=== PATIENT | female | born 1950 | race Caucasian/White ===

== ENCOUNTER 2020-10-16 13:34 | Outpatient (REF) | payer SELFPAY | END 2020-10-16 13:35 | disposition home or self-care (01) | LOC: HO.HAP 13:34 | PROVIDERS: PCP Hospitalist; Referring Provider Hospitalist; Visit Provider Hospitalist | DX: Z46.1 Encounter for fitting and adjustment of hearing aid (principal) | CPT/HCPCS: V5266 ==

== ENCOUNTER 2020-11-09 11:32 | Outpatient (REF) | payer SELFPAY | END 2020-11-09 11:33 | disposition home or self-care (01) | LOC: HO.HAP 11:32 | PROVIDERS: Visit Provider Hospitalist | DX: Z46.1 Encounter for fitting and adjustment of hearing aid (principal); H90.3 Sensorineural hearing loss, bilateral; H93.13 Tinnitus, bilateral | CPT/HCPCS: 99499 ==

== ENCOUNTER 2021-03-15 13:17 | Outpatient (REF) | payer SELFPAY | END 2021-03-15 13:18 | disposition home or self-care (01) | LOC: HO.HAP 13:17 | PROVIDERS: Visit Provider Family Medicine | DX: Z46.1 Encounter for fitting and adjustment of hearing aid (principal); H90.3 Sensorineural hearing loss, bilateral | CPT/HCPCS: V5266; V5267 ==

== ENCOUNTER 2021-04-16 10:36 | Outpatient (REF) | payer SELFPAY | END 2021-04-16 10:37 | disposition home or self-care (01) | LOC: HO.HAP 10:36 | PROVIDERS: Visit Provider Family Medicine | DX: Z46.1 Encounter for fitting and adjustment of hearing aid (principal) | CPT/HCPCS: V5266 ==

== ENCOUNTER 2021-04-25 10:27 | Outpatient (REF) | payer MEDICARE, SELFPAY ==
--- NOTE | 2021-04-30 12:39 | MHC.AU.AHA ---
Adult Audiological Evaluation Date of Visit: 04/25/21 Paid Search Marketing Strategist Used: Not Applicable Reason for Appointment: Audiologic re-evaluation due to increased hearing difficulties for the left ear. Sharla has a long-standing asymmetric hearing loss with no functional hearing ability in the right ear. She feels the left ear hearing has decreased and she is experiencing more difficulty understanding speech despite wearing her CROS hearing aid system Previous Hearing Test Results: 08/29/2019 [facility] Left ear - Moderate to severe mixed hearing loss with 92% speech understanding at 80 dB HL Right ear - Profound sensorineural hearing loss with no speech discrimination ability Ear History: History of Ear Wax Buildup: Both Ears Bothersome Tinnitus/Ringing/Noises in Ears: Both Ears Medical History: Medical History: High Blood Pressure, Catatacts and Glaucoma Medication List: Metoprolol, Aspirin, Klonidine, Citalopram, Lisinopril/HCTZ Hearing Instrument History- Right Ear: Milk Drying Machine Operator: Phonak Model: CROS B-312 Serial Number: [id number] Battery Size: 312 Repair Warranty: 12/28/2017 Dispensed By: [facility] Date of Fittin10/08/2016 Hearing Instrument History- Left Ear: Milk Drying Machine Operator: Phonak Model: Audeo B 90-312T Serial Number: [id number] Battery Size: 312 Warranty: 12/28/2019 Dispensed By: [facility] Date of Fittin10/08/2016 Otoscopy: Right Ear: Unremarkable Left Ear: Unremarkable Tympanometry: Tympanometry performed due to: Patient reports sensation that ears are blocked/plugged. Right Ear: Normal Middle Ear System (Type A) Left Ear: Normal Middle Ear System (Type A) Hearing Evaluation: Transducer(s) Used: Insert Earphones Bone Conduction Method: Conventional Audiometry Stimuli Used: Pure Tones Right Ear: Description of Hearing: Did Not Test today due to long-standing history of profound hearing loss Left Ear: Description of Hearing: Moderate to severe mixed hearing loss Speech Recognition Threshold (SRT): Method Used: Monitored Live Voice Stimuli Used: Spondee Words Right Ear: Did Not Test Left Ear: 55 dB HL Word Discrimination: Method: Recorded Lists Word Lists Used: NU-6 Right Ear: Did Not Test Left Ear: 100% at 85 dB HL Comparison: Thresholds for the left ear have decreased 5-15 dB at 250-1000 Hz compared to 08/29/2019 Recommendations: Hearing aid maintenance performed and hearing aid(s) reprogrammed with updated test results. Audiological re-evaluation in one year. Will send a reminder card. Diagnosis: Primary Diagnosis: H90.3 Bilateral Sensorineural Hearing Loss Signature: Provider: Aliya Balbuena, KATHIA-A
== END 2021-04-25 10:28 | disposition home or self-care (01) ==
LOC: HO.SH 10:27
PROVIDERS: Visit Provider Family Medicine
DX: H90.3 Sensorineural hearing loss, bilateral (principal)
CPT/HCPCS: 92557; 92567

== ENCOUNTER 2021-05-28 10:50 | Outpatient (REF) | payer SELFPAY | END 2021-05-28 10:51 | disposition home or self-care (01) | LOC: HO.HAP 10:50 | PROVIDERS: Visit Provider Hospitalist | DX: Z46.1 Encounter for fitting and adjustment of hearing aid (principal); H90.3 Sensorineural hearing loss, bilateral | CPT/HCPCS: V5266 ==

== ENCOUNTER 2021-08-06 11:01 | Outpatient (REF) | payer SELFPAY | END 2021-08-06 11:02 | disposition home or self-care (01) | LOC: HO.HAP 11:01 | PROVIDERS: Visit Provider Hospitalist | DX: Z46.1 Encounter for fitting and adjustment of hearing aid (principal); H90.3 Sensorineural hearing loss, bilateral | CPT/HCPCS: V5266 ==

== ENCOUNTER 2021-09-23 12:45 | Outpatient (REF) | payer SELFPAY | END 2021-09-23 12:46 | disposition home or self-care (01) | LOC: HO.HAP 12:45 | PROVIDERS: Visit Provider Hospitalist | DX: Z46.1 Encounter for fitting and adjustment of hearing aid (principal); H90.3 Sensorineural hearing loss, bilateral | CPT/HCPCS: V5266 ==

== ENCOUNTER 2021-09-25 09:31 | Outpatient (REF) | payer MEDICARE, SELFPAY ==
[2021-09-25 12:12] LABS: MANUAL DIFF FLAG NO
[2021-09-25 12:14] LABS: Basophils Percent Auto 0.8 % (0-2); Eosinophils Absolute Auto 0.1 X10*3/uL (0.0-0.4); Hematocrit 39.9 % (37.0-47.0); Hemoglobin 13.4 g/dl (12.0-16.0); Imm Gran Abs Auto 0.01 X10*3/uL (0.00-0.03); Imm Gran Pct Auto 0.2 % (0.0-0.4); Lymphocytes Absolute Auto 0.9 X10*3/uL (1.2-4.9); Mean Corpuscular HGB Conc 33.6 g/dl (31.0-35.0); Mean Corpuscular Hemoglobin 30.7 pg (27.0-33.0); Mean Corpuscular Volume 91.5 fL (80.0-98.0); Mean Platelet Volume 10.1 fL (9.4-12.3); Monocytes Absolute Auto 0.5 X10*3/uL (0.1-1.2); Monocytes Percent Auto 9.5 % (2-11); Neutrophils Absolute Auto 3.52 x10*3/uL (2.0-8.3); Neutrophils Percent Auto 69.5 % (45-73); Platelet Count 215 X10*3/uL (160-400); Red Blood Count 4.36 X10*6/uL (4.20-5.50); White Blood Count 5.1 X10*3/uL (4.8-10.8)
[2021-09-25 12:34] LABS: Alanine Aminotransferase 16 U/L (0-31); Albumin Level 4.3 g/dL (3.5-5.0); Alkaline Phosphatase 47 U/L (39-117); Anion Gap 11 (12-20); Aspartate Amino Transferase 28 U/L (5-31); Bilirubin Total 1.5 mg/dL (0.0-1.0); Blood Urea Nitrogen 16 mg/dL (9-16); Calcium 9.2 mg/dL (8.4-10.2); Carbon Dioxide 28 mmol/L (22-29); Chloride 96 mmol/L (96-108); Estimated Glomerular Filt Rate > 60; Glucose Fasting 90 mg/dL (60-99); Potassium 3.8 mmol/L (3.3-5.1); Sodium 131 mmol/L (135-145); Total Protein 6.7 g/dL (6.5-8.0)
[2021-09-25 12:45] LABS: Appearance Urine HAZY; Color Urine YELLOW; Glucose Urine UA NEG (NEG); Leukocyte Esterase Urine 1+ (NEG); Nitrite Urine NEG (NEG); PH 5.5 (5.0-8.0); Specific Gravity - Urine 1.025 (1.005-1.025); Urine Blood TRACE (NEG); Urine Ketones NEG (NEG); Urine Protein NEG (NEG-TRACE)
[2021-09-25 12:57] LABS: TSH reflex Free T4 1.31 uIU/mL (0.32-4.0)
[2021-09-25 13:00] LABS: Mucus Urine 1+ /LPF; RBC Urine 0-2 /HPF (0); Squamous Epithelial Cell Urine 1+ /LPF
== END 2021-09-25 09:32 | disposition home or self-care (01) ==
LOC: HO.WFDLDS 09:31
PROVIDERS: Visit Provider Family Medicine
DX: Z00.00 Encounter for general adult medical examination without abnormal findings (principal)
CPT/HCPCS: 36415; 80053; 81001; 84443; 85025

== ENCOUNTER 2021-10-02 09:48 | Outpatient (REF) | payer MEDICARE, SELFPAY ==
[2021-10-02 11:27] LABS: Anion Gap 12 (12-20); Blood Urea Nitrogen 17 mg/dL (9-16); Calcium 9.3 mg/dL (8.4-10.2); Carbon Dioxide 27 mmol/L (22-29); Chloride 93 mmol/L (96-108); Estimated Glomerular Filt Rate > 60; Glucose Random 85 mg/dL (60-115); Sodium 128 mmol/L (135-145)
== END 2021-10-02 09:49 | disposition home or self-care (01) ==
LOC: HO.WFDLDS 09:48
PROVIDERS: Visit Provider Hospitalist
DX: E87.1 Hypo-osmolality and hyponatremia (principal)
CPT/HCPCS: 36415; 80048

== ENCOUNTER 2021-10-07 10:45 | Outpatient (REF) | payer MEDICARE, SELFPAY ==
[2021-10-07 14:20] LABS: Appearance Urine CLEAR; Color Urine YELLOW; Glucose Urine UA NEG (NEG); Leukocyte Esterase Urine 1+ (NEG); Nitrite Urine NEG (NEG); Specific Gravity - Urine 1.015 (1.005-1.025); Urine Blood NEG (NEG); Urine Ketones NEG (NEG); Urine Protein NEG (NEG-TRACE)
[2021-10-07 14:24] LABS: Anion Gap 12 (12-20); Blood Urea Nitrogen 16 mg/dL (9-16); Calcium 9.1 mg/dL (8.4-10.2); Carbon Dioxide 28 mmol/L (22-29); Chloride 97 mmol/L (96-108); Estimated Glomerular Filt Rate > 60; Glucose Random 83 mg/dL (60-115); Potassium 4.2 mmol/L (3.3-5.1); Sodium 133 mmol/L (135-145)
[2021-10-07 14:45] LABS: Other Crystals Urine TRACE /LPF; RBC Urine 0 /HPF (0); WBC Urine 0-2 /HPF (0-4)
== END 2021-10-07 10:46 | disposition home or self-care (01) ==
LOC: HO.WFDLDS 10:45
PROVIDERS: Hospitalist; Visit Provider Family Medicine
DX: E87.1 Hypo-osmolality and hyponatremia (principal)
CPT/HCPCS: 36415; 80048; 81001; 81003

== ENCOUNTER 2021-10-14 10:53 | Outpatient (REF) | payer MEDICARE, SELFPAY ==
[2021-10-14 14:36] LABS: Anion Gap 12 (12-20); Blood Urea Nitrogen 15 mg/dL (9-16); Calcium 8.6 mg/dL (8.4-10.2); Carbon Dioxide 25 mmol/L (22-29); Chloride 96 mmol/L (96-108); Estimated Glomerular Filt Rate > 60; Glucose Random 81 mg/dL (60-115); Potassium 4.3 mmol/L (3.3-5.1); Sodium 129 mmol/L (135-145)
== END 2021-10-14 10:54 | disposition home or self-care (01) ==
LOC: HO.10HDL 10:53
PROVIDERS: Visit Provider Hospitalist
DX: E87.1 Hypo-osmolality and hyponatremia (principal)
CPT/HCPCS: 36415; 80048

== ENCOUNTER 2021-10-21 10:16 | Outpatient (REF) | payer MEDICARE, SELFPAY ==
[2021-10-21 14:26] LABS: Anion Gap 14 (12-20); Blood Urea Nitrogen 16 mg/dL (9-16); Carbon Dioxide 26 mmol/L (22-29); Chloride 100 mmol/L (96-108); Estimated Glomerular Filt Rate > 60; Glucose Random 73 mg/dL (60-115); Potassium 4.3 mmol/L (3.3-5.1); Sodium 136 mmol/L (135-145)
== END 2021-10-21 10:17 | disposition home or self-care (01) ==
LOC: HO.10HDL 10:16
PROVIDERS: Visit Provider Hospitalist
DX: E87.1 Hypo-osmolality and hyponatremia (principal)
CPT/HCPCS: 36415; 80048

== ENCOUNTER 2021-10-28 10:46 | Outpatient (REF) | payer MEDICARE, SELFPAY ==
[2021-10-28 14:01] LABS: Anion Gap 12 (12-20); Blood Urea Nitrogen 16 mg/dL (9-16); Calcium 9.1 mg/dL (8.4-10.2); Carbon Dioxide 26 mmol/L (22-29); Estimated Glomerular Filt Rate > 60; Glucose Random 73 mg/dL (60-115); Potassium 4.2 mmol/L (3.3-5.1)
[2021-10-28 14:05] LABS: Chloride 100 mmol/L (96-108); Sodium 134 mmol/L (135-145)
== END 2021-10-28 10:47 | disposition home or self-care (01) ==
LOC: HO.10HDL 10:46
PROVIDERS: Visit Provider Hospitalist
DX: E87.1 Hypo-osmolality and hyponatremia (principal)
CPT/HCPCS: 36415; 80048

== ENCOUNTER 2021-11-05 12:34 | Outpatient (REF) | payer MEDICARE, SELFPAY ==
[2021-11-05 14:17] LABS: Anion Gap 12 (12-20); Blood Urea Nitrogen 17 mg/dL (9-16); Calcium 9.4 mg/dL (8.4-10.2); Carbon Dioxide 27 mmol/L (22-29); Chloride 97 mmol/L (96-108); Estimated Glomerular Filt Rate > 60; Glucose Fasting 102 mg/dL (60-99); Potassium 3.5 mmol/L (3.3-5.1); Sodium 132 mmol/L (135-145)
== END 2021-11-05 12:35 | disposition home or self-care (01) ==
LOC: HO.10HDL 12:34
PROVIDERS: Visit Provider Hospitalist
DX: E87.1 Hypo-osmolality and hyponatremia (principal)
CPT/HCPCS: 36415; 80048

== ENCOUNTER 2021-11-06 14:01 | Outpatient (REF) | payer SELFPAY | END 2021-11-06 14:02 | disposition home or self-care (01) | LOC: HO.HAP 14:01 | PROVIDERS: Visit Provider Hospitalist | DX: Z46.1 Encounter for fitting and adjustment of hearing aid (principal); H90.3 Sensorineural hearing loss, bilateral; H61.22 Impacted cerumen, left ear | CPT/HCPCS: 92700 ==

== ENCOUNTER 2021-11-11 11:34 | Outpatient (REF) | payer MEDICARE, SELFPAY ==
[2021-11-11 15:34] LABS: Alanine Aminotransferase 18 U/L (0-31); Albumin Level 4.1 g/dL (3.5-5.0); Alkaline Phosphatase 52 U/L (39-117); Anion Gap 12 (12-20); Aspartate Amino Transferase 30 U/L (5-31); Bilirubin Total 0.8 mg/dL (0.0-1.0); Blood Urea Nitrogen 14 mg/dL (9-16); Carbon Dioxide 26 mmol/L (22-29); Chloride 100 mmol/L (96-108); Estimated Glomerular Filt Rate > 60; Glucose Random 117 mg/dL (60-115); Potassium 4.1 mmol/L (3.3-5.1); Sodium 134 mmol/L (135-145); Total Protein 6.8 g/dL (6.5-8.0)
== END 2021-11-11 11:35 | disposition home or self-care (01) ==
LOC: HO.10HDL 11:34
PROVIDERS: Visit Provider Hospitalist
DX: Z00.00 Encounter for general adult medical examination without abnormal findings (principal)
CPT/HCPCS: 36415; 80053

== ENCOUNTER 2021-11-18 15:32 | Outpatient (REF) | payer SELFPAY | END 2021-11-18 15:33 | disposition home or self-care (01) | LOC: HO.HAP 15:32 | PROVIDERS: Visit Provider Hospitalist | DX: Z46.1 Encounter for fitting and adjustment of hearing aid (principal); H90.3 Sensorineural hearing loss, bilateral | CPT/HCPCS: V5266 ==

== ENCOUNTER 2021-12-10 11:08 | Outpatient (REF) | payer MEDICARE, SELFPAY ==
[2021-12-10 14:13] LABS: Anion Gap 11 (12-20); Blood Urea Nitrogen 18 mg/dL (9-16); Calcium 9.3 mg/dL (8.4-10.2); Carbon Dioxide 28 mmol/L (22-29); Chloride 102 mmol/L (96-108); Estimated Glomerular Filt Rate > 60; Glucose Random 85 mg/dL (60-115); Potassium 4.3 mmol/L (3.3-5.1); Sodium 137 mmol/L (135-145)
== END 2021-12-10 11:09 | disposition home or self-care (01) ==
LOC: HO.10HDL 11:08
PROVIDERS: Visit Provider Hospitalist
DX: E87.1 Hypo-osmolality and hyponatremia (principal)
CPT/HCPCS: 36415; 80048

== ENCOUNTER 2021-12-31 10:41 | Outpatient (REF) | payer MEDICARE, SELFPAY ==
[2021-12-31 14:27] LABS: Anion Gap 11 (12-20); Blood Urea Nitrogen 20 mg/dL (9-16); Calcium 9.1 mg/dL (8.4-10.2); Carbon Dioxide 27 mmol/L (22-29); Chloride 104 mmol/L (96-108); Estimated Glomerular Filt Rate > 60; Glucose Random 91 mg/dL (60-115); Potassium 4.5 mmol/L (3.3-5.1); Sodium 137 mmol/L (135-145)
== END 2021-12-31 10:42 | disposition home or self-care (01) ==
LOC: HO.10HDL 10:41
PROVIDERS: Visit Provider Hospitalist
DX: E87.1 Hypo-osmolality and hyponatremia (principal)
CPT/HCPCS: 36415; 80048

== ENCOUNTER 2022-01-07 10:23 | Outpatient (REF) | payer SELFPAY | END 2022-01-07 10:24 | disposition home or self-care (01) | LOC: HO.HAP 10:23 | PROVIDERS: Visit Provider Hospitalist | DX: Z46.1 Encounter for fitting and adjustment of hearing aid (principal) | CPT/HCPCS: V5266 ==

== ENCOUNTER 2022-01-29 10:43 | Outpatient (REF) | payer MEDICARE, SELFPAY ==
[2022-01-29 14:40] LABS: Anion Gap 9 (12-20); Blood Urea Nitrogen 18 mg/dL (9-16); Calcium 9.3 mg/dL (8.4-10.2); Carbon Dioxide 30 mmol/L (22-29); Chloride 99 mmol/L (96-108); Estimated Glomerular Filt Rate > 60; Glucose Random 89 mg/dL (60-115); Potassium 4.2 mmol/L (3.3-5.1); Sodium 134 mmol/L (135-145)
== END 2022-01-29 10:44 | disposition home or self-care (01) ==
LOC: HO.WFDLDS 10:43
PROVIDERS: Visit Provider Hospitalist
DX: E87.1 Hypo-osmolality and hyponatremia (principal)
CPT/HCPCS: 36415; 80048

== ENCOUNTER 2022-03-18 10:35 | Outpatient (REF) | payer SELFPAY | END 2022-03-18 10:36 | disposition home or self-care (01) | LOC: HO.HAP 10:35 | PROVIDERS: Visit Provider Hospitalist | DX: Z46.1 Encounter for fitting and adjustment of hearing aid (principal); H90.3 Sensorineural hearing loss, bilateral | CPT/HCPCS: V5266 ==

== ENCOUNTER 2022-04-25 10:17 | Outpatient (REF) | payer SELFPAY | END 2022-04-25 10:18 | disposition home or self-care (01) | LOC: HO.HAP 10:17 | PROVIDERS: Visit Provider Hospitalist | DX: Z46.1 Encounter for fitting and adjustment of hearing aid (principal); H90.3 Sensorineural hearing loss, bilateral | CPT/HCPCS: V5266 ==

== ENCOUNTER 2022-04-30 09:52 | Outpatient (REF) | payer MEDICARE, SELFPAY ==
[2022-04-30 12:02] LABS: Anion Gap 13 (12-20); Blood Urea Nitrogen 19 mg/dL (9-16); Calcium 9.2 mg/dL (8.4-10.2); Carbon Dioxide 25 mmol/L (22-29); Chloride 100 mmol/L (96-108); Estimated Glomerular Filt Rate > 60; Glucose Random 85 mg/dL (60-115); Potassium 3.9 mmol/L (3.3-5.1); Sodium 134 mmol/L (135-145)
== END 2022-04-30 09:53 | disposition home or self-care (01) ==
LOC: HO.WFDLDS 09:52
PROVIDERS: Visit Provider Hospitalist
DX: I10 Essential (primary) hypertension (principal)
CPT/HCPCS: 36415; 80048

== ENCOUNTER 2022-06-03 10:40 | Outpatient (REF) | payer MEDICARE, SELFPAY ==
[2022-06-03 14:17] LABS: Anion Gap 11 (12-20); Blood Urea Nitrogen 20 mg/dL (9-16); Calcium 9.1 mg/dL (8.4-10.2); Carbon Dioxide 27 mmol/L (22-29); Chloride 101 mmol/L (96-108); Estimated Glomerular Filt Rate > 60; Glucose Random 79 mg/dL (60-115); Potassium 3.9 mmol/L (3.3-5.1); Sodium 135 mmol/L (135-145)
== END 2022-06-03 10:41 | disposition home or self-care (01) ==
LOC: HO.10HDL 10:40
PROVIDERS: Visit Provider Hospitalist
DX: E87.1 Hypo-osmolality and hyponatremia (principal)
CPT/HCPCS: 36415; 80048

== ENCOUNTER 2022-06-23 10:51 | Outpatient (REF) | payer MEDICARE, SELFPAY ==
--- NOTE | 2022-06-23 12:14 | MHC.AU.AHA ---
Adult Audiological Evaluation Date of Visit: 06/23/22 Brake Operator Used: Not Applicable Reason for Appointment: Audiologic re-evaluation to determine possible change in hearing ability. Sharla has a long-standing history of asymmetric hearing loss with no functional hearing ability for the right ear. Sharla notes today she is hearing well when using her hearing aid/CROS system, but feels her hearing seems worse than previously when she removes the amplification. Previous Hearing Test Results: 04/25/2021 [facility]. Left Ear - Moderate to severe mixed hearing loss with 100% speech discrimination ability at 85 dB HL. Right Ear - History of profound loss with no speech understanding ability. Ear History: History of Ear Wax Buildup: Both Ears Tinnitus Medical History: Medical History: High Blood Pressure, Cataracts, and Glaucoma Medication List: Metoprolol, Klonidine, Lisinopril, Sodium Hydroxide Hearing Instrument History- Right Ear: Slinger Sequins: Phonak Model: CROS B-312 Serial Number: [id number] Battery Size: 312 Repair Warranty: 12/28/2017 Dispensed By: [facility] Date of Fittin10/08/2016 Hearing Instrument History- Left Ear: Slinger Sequins: Phonak Model: Audeo B 90-312T Serial Number: [id number] Battery Size: 312 Warranty: 12/28/2019 Dispensed By: [facility] Date of Fittin10/08/2016 Otoscopy: Right Ear: Unremarkable Left Ear: Small amount of non-occluding cerumen Tympanometry:Did not test as previous results have shown normal middle ear function Hearing Evaluation: Transducer(s) Used: Insert Earphones Bone Conduction Method: Conventional Audiometry Stimuli Used: Pure Tones Right Ear: Description of Hearing: Did not test as all previous testing as indicate profound sensorineural hearing loss Left Ear: Description of Hearing: Moderate to severe mixed hearing loss Speech Recognition Threshold (SRT): Method Used: Monitored Live Voice Stimuli Used: Spondee Words Right Ear: Did Not Test Left Ear: 50 dB HL Word Discrimination: Method: Recorded Lists Word Lists Used: W22 Right Ear: Did Not Test Left Ear: 100% at 80 dB HL Most Comfortable Level (MCL): Left Ear: 80 dB HL Comparison: Compared to the most recent evaluation: Hearing is stable. Recommendations: Audiological re-evaluation in one year. Will send a reminder card. Hearing aid maintenance performed today. Diagnosis: Primary Diagnosis: H90.3 Bilateral Sensorineural Hearing Loss Services Performed: Comprehensive Audiological Evaluation (CPT 46180) Signature: Provider: Aliya Balbuena, KATHIA-A
== END 2022-06-23 10:52 | disposition home or self-care (01) ==
LOC: HO.SH 10:51
PROVIDERS: Visit Provider Hospitalist
DX: Z01.118 Encounter for examination of ears and hearing with other abnormal findings (principal); H90.3 Sensorineural hearing loss, bilateral
CPT/HCPCS: 92557

== ENCOUNTER 2022-08-04 10:54 | Outpatient (REF) | payer MEDICARE, SELFPAY ==
[2022-08-04 14:15] LABS: Anion Gap 15 (12-20); Blood Urea Nitrogen 17 mg/dL (9-16); Calcium 9.1 mg/dL (8.4-10.2); Carbon Dioxide 26 mmol/L (22-29); Chloride 99 mmol/L (96-108); Estimated Glomerular Filt Rate > 60; Glucose Random 82 mg/dL (60-115); Potassium 4.2 mmol/L (3.3-5.1); Sodium 136 mmol/L (135-145)
== END 2022-08-04 10:55 | disposition home or self-care (01) ==
LOC: HO.10HDL 10:54
PROVIDERS: Visit Provider Hospitalist
DX: E87.1 Hypo-osmolality and hyponatremia (principal)
CPT/HCPCS: 36415; 80048

== ENCOUNTER 2022-09-09 11:48 | Outpatient (REF) | payer MEDICARE, SELFPAY | END 2022-09-09 11:49 | disposition home or self-care (01) | LOC: HO.HAP 11:48 | PROVIDERS: Visit Provider Hospitalist | DX: Z13.89 Encounter for screening for other disorder (principal) ==

== ENCOUNTER 2022-09-15 13:45 | Outpatient (REF) | payer SELFPAY | END 2022-09-15 13:46 | disposition home or self-care (01) | LOC: HO.HAP 13:45 | PROVIDERS: Visit Provider Hospitalist | DX: Z46.1 Encounter for fitting and adjustment of hearing aid (principal); H90.3 Sensorineural hearing loss, bilateral | CPT/HCPCS: 92700; V5266 ==

== ENCOUNTER 2022-10-29 09:14 | Outpatient (REF) | payer MEDICARE, SELFPAY ==
[2022-10-29 12:11] LABS: Anion Gap 12 (12-20); Blood Urea Nitrogen 21 mg/dL (9-16); Calcium 9.6 mg/dL (8.4-10.2); Carbon Dioxide 28 mmol/L (22-29); Chloride 100 mmol/L (96-108); Estimated Glomerular Filt Rate > 60; Glucose Random 84 mg/dL (60-115); Potassium 4.1 mmol/L (3.3-5.1); Sodium 136 mmol/L (135-145)
== END 2022-10-29 09:15 | disposition home or self-care (01) ==
LOC: HO.WFDLDS 09:14
PROVIDERS: Visit Provider Hospitalist
DX: E87.1 Hypo-osmolality and hyponatremia (principal)
CPT/HCPCS: 36415; 80048

== ENCOUNTER 2022-12-05 11:27 | Outpatient (REF) | payer SELFPAY | END 2022-12-05 11:28 | disposition home or self-care (01) | LOC: HO.HAP 11:27 | PROVIDERS: Visit Provider Hospitalist | DX: Z46.1 Encounter for fitting and adjustment of hearing aid (principal); H90.3 Sensorineural hearing loss, bilateral | CPT/HCPCS: V5266; V5267 ==

== ENCOUNTER 2023-01-27 11:04 | Outpatient (REF) | payer MEDICARE, SELFPAY ==
[2023-01-27 15:42] LABS: Anion Gap 11 (12-20); Blood Urea Nitrogen 18 mg/dL (9-16); Calcium 9.6 mg/dL (8.4-10.2); Carbon Dioxide 30 mmol/L (22-29); Chloride 100 mmol/L (96-108); Estimated Glomerular Filt Rate > 60; Glucose Random 81 mg/dL (60-115); Potassium 4.5 mmol/L (3.3-5.1); Sodium 136 mmol/L (135-145)
== END 2023-01-27 11:05 | disposition home or self-care (01) ==
LOC: HO.WFDLDS 11:04
PROVIDERS: Visit Provider Hospitalist
DX: E87.1 Hypo-osmolality and hyponatremia (principal)
CPT/HCPCS: 36415; 80048

== ENCOUNTER 2023-01-28 13:29 | Outpatient (REF) | payer MEDICARE, SELFPAY | END 2023-01-28 13:30 | disposition home or self-care (01) | LOC: HO.HAP 13:29 | PROVIDERS: Visit Provider Hospitalist | DX: Z46.1 Encounter for fitting and adjustment of hearing aid (principal); H61.22 Impacted cerumen, left ear | CPT/HCPCS: V5266 ==

== ENCOUNTER 2023-02-23 09:05 | Outpatient (REF) | payer SELFPAY | END 2023-02-23 09:06 | disposition home or self-care (01) | LOC: HO.HAP 09:05 | PROVIDERS: Visit Provider Hospitalist | DX: Z46.1 Encounter for fitting and adjustment of hearing aid (principal); H90.3 Sensorineural hearing loss, bilateral | CPT/HCPCS: 92700; V5299 ==

== ENCOUNTER 2023-03-23 11:23 | Outpatient (REF) | payer SELFPAY | END 2023-03-23 11:24 | disposition home or self-care (01) | LOC: HO.HAP 11:23 | PROVIDERS: Visit Provider Hospitalist | DX: Z46.1 Encounter for fitting and adjustment of hearing aid (principal); H90.3 Sensorineural hearing loss, bilateral; H61.22 Impacted cerumen, left ear | CPT/HCPCS: V5266 ==

== ENCOUNTER 2023-05-22 14:46 | Outpatient (REF) | payer SELFPAY | END 2023-05-22 14:47 | disposition home or self-care (01) | LOC: HO.HAP 14:46 | PROVIDERS: Visit Provider Hospitalist | DX: Z46.1 Encounter for fitting and adjustment of hearing aid (principal); H91.90 Unspecified hearing loss, unspecified ear | CPT/HCPCS: V5266; V5267 ==

== ENCOUNTER 2023-08-13 10:17 | Outpatient (REF) | payer SELFPAY | END 2023-08-13 10:18 | disposition home or self-care (01) | LOC: HO.HAP 10:17 | PROVIDERS: Visit Provider Hospitalist | DX: Z46.1 Encounter for fitting and adjustment of hearing aid (principal); H90.3 Sensorineural hearing loss, bilateral | CPT/HCPCS: V5266 ==

== ENCOUNTER 2023-10-07 16:17 | Outpatient (REF) | payer SELFPAY | END 2023-10-07 16:18 | disposition home or self-care (01) | LOC: HO.HAP 16:17 | PROVIDERS: Visit Provider Hospitalist | DX: Z13.89 Encounter for screening for other disorder (principal) ==

== ENCOUNTER 2023-11-10 12:13 | Outpatient (REF) | payer SELFPAY | END 2023-11-10 12:14 | disposition home or self-care (01) | LOC: HO.HAP 12:13 | PROVIDERS: Visit Provider Family Medicine | DX: Z46.1 Encounter for fitting and adjustment of hearing aid (principal); H90.3 Sensorineural hearing loss, bilateral; H61.22 Impacted cerumen, left ear | CPT/HCPCS: V5266 ==

== ENCOUNTER 2023-12-28 10:26 | Outpatient (AMB) | payer MEDICARE, SELFPAY ==
--- NOTE | 2023-12-28 10:28 | MHC.PC.OV ---
Vital Signs 12/28/23 10:29 12/28/23 11:00 Height 5 ft 6 in Weight 102 lb 0.2 oz BMI 16.5 BP 132/90 H 138/80 Blood Pressure Location Lt brachial Lt brachial Position Sitting Sitting Pulse 86 Pulse Source Pulse Oximeter Pulse Oximetry (%) 99 Oxygen Delivery Method Room Air Intake Visit Reasons: transfer from [facility]/medication follow up Intake Note: 73 y/o female here to transfer care/medication follow up Crusher And Blender Operator Required: No Allergies No Known Allergies [No Known Allergies*] Allergy (Verified 12/28/23 10:45) Medication List - Last Reconciled 12/28/23 by Irene Lunsford, PACKAGING DESIGNER-BC carboxymethylcellulose sodium 0.5% (Refresh Tears) 1 drp ophthalmic (eye) BID clonidine HCl 0.1 mg PO BID 3 months lisinopril-hydrochlorothiazide 20-25 mg 1 tab PO DAILY 3 months metoprolol succinate ER 75 mg (3 x 25 mg) PO QPM sodium chloride 1,000 mg PO DAILY Tobacco use date assessed: 12/28/23 Fall risk assessment: No Falls in past year Last assessed Fall Risk: 12/28/23 Dental Screening Dental Screen Date: 12/28/23 Did you have a dental visit in the last 12 months?: Yes Did you have a dental problem in the last 6 months where you did not have access to dental care?: No Was dental information given to patient?: Patient has dentist HPI HPI Comments History of Present Illness Details 73-year-old female with hypertension, anxiety, hyponatremia, hypothyroidism, hard of hearing Status post bilat cataract extraction (2020) [facility] D[facility] Audiology Health maintenance Mammogram declined Colonoscopy DEXA discussed today, will think about it Immunizations Reports UTD on flu and COVID vaccines Here today to f/u on chronic conditions: Hyponatremia - Taking Salt tab 4 times per week, admits orthostatic sx w/o syncope. She is on HCTZ and tells me the hyponatremia started after taking medications for her BP. Has never seen renal for this. Not a problem prior to start of HCTZ. Has not trialed coming off. HTN - taking meds as directed. Was checking at home however this worsened her anxiety, so she stopped. Denies chest pain. Anxiety - admits lots of anxiety. Day to Day. [facility] Surgical History No pertinent past surgical history Family History Father No problems noted. Mother No problems noted. Brother No problems noted. Social History Housing: House Alcohol intake: current Alcohol intake frequency: holidays/special occasions only Patient Tobacco Use Status: Never used Tobacco e-Cigarette/Vaping Use: Never Used service: No Current occupational status: retired Cognitive needs: No Hearing needs: No Vision needs: No Questionnaire PHQ-9 Over the last 2 weeks, how often have you been bothered by any of the following problems? 1. Little interest or pleasure in doing things: not at all 2. Feeling down, depressed, or hopeless: not at all 3. Trouble falling or staying asleep, or sleeping too much: not at all 4. Feeling tired or having little energy: not at all 5. Poor appetite or overeating: not at all 6. Feeling bad about yourself - or that you are a failure or have let yourself or your family down: not at all 7. Trouble concentrating on things, such as reading the newspaper or watching television: not at all 8. Moving or speaking so slowly that other people could have noticed. Or the opposite - being so fidgety or restless that you have been moving around a lot more than usual: not at all 9. Thoughts that you would be better off or of hurting yourself in some way: not at all Total score: 0 Depression Screening Interpretation: Negative Depression Screening Done: Yes 40353 - PHQ-9 Billing: Yes Source: Developed by Drs. Abe Navarrete, Shonda Dillon, Aftab Stanford and colleagues, with an educational michael from [employer]. Thrive Questionnaire Date Thrive assessed: 12/28/23 AUDIT C Alcohol Use Questionnaire (AUDIT-C) 1. How often do you have a drink containing alcohol?: Never 3. How often do you have six or more drinks on one occasion?: Never Total Score: 0 Score Reviewed/Action Taken: No NAFISA-7 AMB Questionnaire NAFISA-7 Date NAFISA - 7 assessed: 12/28/23 Feeling nervous, anxious, or on edge: 0 = Not at all Not being able to stop or control worryin = Not at all Worrying too much about different things: 0 = Not at all Trouble relaxin = Not at all Being so restless that it is hard to sit still: 0 = Not at all Becoming easily annoyed or irritable: 0 = Not at all Feeling afraid as if something awful might happen: 0 = Not at all Total NAFISA-7 score (0-4 normal; 5-9 mild; 10-14 moderate; 15-21 severe): 0 Source: Developed by Drs. Abe Navarrete, Shonda Dillon, Aftab Stanford and colleagues, with an educational michael from [employer]. NAFISA-7 Assessment Billing NAFISA-7 Assessment Tool: NAFISA-7 Assessment 54389 Review of Systems Const All systems reviewed & are unremarkable except as noted in HPI and below Physical exam (Primary Care) Vital Signs: Last Vital Signs Pulse 86 12/28/23 10:29 BP 138/80 12/28/23 11:00 Pulse Ox 99 12/28/23 10:29 Oxygen Delivery Method Room Air 12/28/23 10:29 BMI result Body Mass Index 16.5 Tobacco/Smoking Status: Tobacco use Status Tobacco use date assessed 12/28/23 12/28/23 10:33 Patient Tobacco Use Status Never used Tobacco 12/28/23 10:33 e-Cigarette/Vaping Use Never Used 12/28/23 10:33 PHQ-9: PHQ-9 Score PHQ-9: Total score 0 12/28/23 15:15 Depression Screening Interpretation: Negative Thrive Assessment: Date of Thrive Assessment Date Thrive assessed 12/28/23 12/28/23 10:33 Const Other: awake alert oriented MMM RRR LS CTAB Anxious, appropriate and engaging BLE w/o edema, skin intact, + PP Assessment and Plan Assessment & Plan (1) Hypertension: Code(s): I10 - Essential (primary) hypertension Qualifiers: Hypertension type: essential hypertension Qualified Code(s): I10 - Essential (primary) hypertension (2) Hyponatremia: Comment: likely related to the HCTZ. Plan: labs today show Na+ 135. will d/c HCTZ & Sodium Chloride. START Lisinopril 20mg QAM, new RX for Norvasc 5mg po QHS. Ok to cont Metoprolol and Clonidine. Of note, she states she's taking half of clonidine 0.1mg at HS and a full tab in the AM. Can revisit this at next visit which will be in 2 weeks with repeat BMP 1-2 days before. Code(s): E87.1 - Hypo-osmolality and hyponatremia (3) Anxiety: Comment: chronic, on BB and Clonidine for BP and Anxiety. Was on SSRI in the past. Will need to explore further at next visit. Code(s): F41.9 - Anxiety disorder, unspecified Plan Total time spent caring for the patient today was 60 minutes. This includes time spent before the visit reviewing the chart, time spent during the visit, and time spent after the visit on documentation This note is constructed using voice recognition software. While every effort has been made to ensure accuracy in off track betting manager, still errors may have been included Sometimes, these errors may affect the content or meaning of the given sentence . Orders: Orders TSH reflex Free T4 12/28/23 E87.1 - Hypo-osmolality and hyponatremia, F41.9 - Anxiety disorder, unspecified, I10 - Essential (primary) hypertension Comprehensive Met. Panel 12/28/23 E87.1 - Hypo-osmolality and hyponatremia, F41.9 - Anxiety disorder, unspecified, I10 - Essential (primary) hypertension Vitamin D 1,25 dihydroxy 12/28/23 E87.1 - Hypo-osmolality and hyponatremia, F41.9 - Anxiety disorder, unspecified, I10 - Essential (primary) hypertension LDL Cholesterol Direct 12/28/23 E87.1 - Hypo-osmolality and hyponatremia, F41.9 - Anxiety disorder, unspecified, I10 - Essential (primary) hypertension Microalbumin, Random (w Creat) 12/28/23 E87.1 - Hypo-osmolality and hyponatremia, F41.9 - Anxiety disorder, unspecified, I10 - Essential (primary) hypertension Basic Metabolic Panel Fasting 1 Week E87.1 - Hypo-osmolality and hyponatremia Medications: New lisinopril 20 mg PO DAILY 30 tabs 0RF amlodipine (Norvasc) 5 mg PO .at bedtime 30 tabs 0RF Refilled metoprolol succinate ER 75 mg (3 x 25 mg) PO QPM 270 tabs 0RF Discontinued lisinopril-hydrochlorothiazide 20-25 mg Discontinued Reason: Doctor's Order 1 tab PO DAILY 3 months 90 tabs 3RF sodium chloride Discontinued Reason: Doctor's Order 1,000 mg PO DAILY 30 tabs 3RF Review Patient declined Mammogram: 12/28/23 Patient declined Colonoscopy: 12/28/23 Coding Level of Care Code Est Pt Level 5 (87719) Diagnoses Essential hypertension I10 Hypertension type: essential hypertension Hyponatremia E87.1 Anxiety F41.9 Additional Codes NAFISA-7 Assessment Billing - NAFISA-7 Assessment Tool: NAFISA-7 Assessment 77903 ([id number])
[2023-12-28 10:29] VITALS: BP 132/90; PULSE 86; O2SAT 99; BMI 16.5
[2023-12-28 11:00] VITALS: BP 138/80
== END 2023-12-28 11:27 | disposition home or self-care (01) ==
PROVIDERS: PCP Nurse Practitioner Family; Visit Provider Nurse Practitioner Family
DX: I10 Essential (primary) hypertension (principal); E87.1 Hypo-osmolality and hyponatremia; F41.9 Anxiety disorder, unspecified
CPT/HCPCS: 99215

== ENCOUNTER 2023-12-28 11:14 | Outpatient (REF) | payer MEDICARE, SELFPAY ==
[2023-12-28 15:38] LABS: Alanine Aminotransferase 14 U/L (0-31); Albumin Level 4.1 g/dL (3.5-5.0); Alkaline Phosphatase 50 U/L (39-117); Anion Gap 8 (12-20); Aspartate Amino Transferase 27 U/L (5-31); Blood Urea Nitrogen 15 mg/dL (9-16); Calcium 9.3 mg/dL (8.4-10.2); Carbon Dioxide 30 mmol/L (22-29); Chloride 101 mmol/L (96-108); Estimated Glomerular Filt Rate > 60; Glucose Random 87 mg/dL (60-115); Potassium 4.1 mmol/L (3.3-5.1); Sodium 135 mmol/L (135-145); Total Protein 6.9 g/dL (6.5-8.0)
[2023-12-28 15:41] LABS: TSH reflex Free T4 1.39 uIU/mL (0.32-4.0)
[2023-12-29 12:54] LABS: LDL Cholesterol Direct 126 mg/dL (<100)
[2024-01-01 12:13] LABS: VITAMIN D (1,25 OH) D3 42 pg/mL; Vit D (1,25-Dihydroxy) Total 42 pg/mL (18-72); Vitamin D (1,25 OH) D2 <8 pg/mL
== END 2023-12-28 11:15 | disposition home or self-care (01) ==
LOC: HO.WFDLDS 11:14
PROVIDERS: Visit Provider Nurse Practitioner Family
DX: E87.1 Hypo-osmolality and hyponatremia (principal); F41.9 Anxiety disorder, unspecified; I10 Essential (primary) hypertension
CPT/HCPCS: 36415; 80053; 82652; 83721; 84443

== ENCOUNTER 2024-01-04 09:04 | Outpatient (REF) | payer MEDICARE, SELFPAY ==
[2024-01-04 12:40] LABS: Creatinine Urine 30.91 mg/dL; Microalbumin Urine < 5.0 mg/L
[2024-01-04 13:09] LABS: Anion Gap 11 (12-20); Blood Urea Nitrogen 14 mg/dL (9-16); Calcium 9.4 mg/dL (8.4-10.2); Carbon Dioxide 26 mmol/L (22-29); Chloride 105 mmol/L (96-108); Estimated Glomerular Filt Rate > 60; Glucose Fasting 87 mg/dL (60-99); Glucose Random 87 mg/dL (60-115); Potassium 4.1 mmol/L (3.3-5.1); Sodium 138 mmol/L (135-145)
== END 2024-01-04 09:05 | disposition home or self-care (01) ==
LOC: HO.WFDLDS 09:04
PROVIDERS: Hospitalist; Visit Provider Nurse Practitioner Family
DX: E87.1 Hypo-osmolality and hyponatremia (principal); F41.9 Anxiety disorder, unspecified; I10 Essential (primary) hypertension
CPT/HCPCS: 36415; 80048; 82043; 82570

== ENCOUNTER 2024-01-11 10:17 | Outpatient (AMB) | payer MEDICARE, SELFPAY ==
--- NOTE | 2024-01-11 10:02 | A.OFFPC_ITS ---
Vital Signs 01/11/24 10:29 01/11/24 11:03 Height 5 ft 6 in Weight 103 lb 3 oz BMI 16.7 BP 124/70 124/68 Blood Pressure Location Lt brachial Lt brachial Position Sitting Respiration 12 Pulse 67 Pulse Source Pulse Oximeter Pulse Oximetry (%) 98 Oxygen Delivery Method Room Air Intake Visit Reasons: 2 week follow up Intake Note: Patient is here for a BP recheck and a medication discussion regarding her BP. Patient reports she would like her provider to check her bilateral ankles for swelling. Meter Shop Supervisor Required: No Accompanied by: Self / Same As Patient Allergies No Known Allergies [No Known Allergies*] Allergy (Verified 01/11/24 10:39) Medication List - Last Reconciled 01/11/24 by DINESH Hernandez amlodipine (Norvasc) 5 mg PO .at bedtime carboxymethylcellulose sodium 0.5% (Refresh Tears) 1 drp ophthalmic (eye) BID clonidine HCl 0.1 mg PO BID 3 months lisinopril 20 mg PO DAILY metoprolol succinate ER 75 mg (3 x 25 mg) PO QPM Tobacco use date assessed: 12/28/23 HPI HPI Comments History of Present Illness Details 73-year-old female with hypertension, an xiety, hyponatremia, hypothyr oidism, hard of hearing, Status post bilat cataract extraction (2020) [facility] Dermat[facility] Audiology Health maintenance Mammogram declined Colonoscopy DEXA discussed today, will think about it Immunizations Reports UTD on flu and COVID vaccines Here today to f/u on hypertension and hyponatremia. Since the last visit she has been off of the hydrochlorothiazide and the sodium tablet. She started on amlodipine 5 mg taking this at bedtime. She is taking lisinopril 20 mg in the morning along with her metoprolol 75 mg. In addition she is taking clonidine 0.1 mg in the morning and a half of this at bedtime. She has been monitoring her blood pressure at home and reports that it is better. She did develop some swelling of ankles started over the weekend that has improved since onset. Repeat labs show an improved sodium level of 138 and this is off of the hydrochlorothiazide as well as the sodium tablets. [facility] Medical History (Updated 01/11/24 @ 11:18 by DINESH Hernandez) Scalp cyst Decreased hearing Surgical History No pertinent past surgical history Family History Father No problems noted. Mother No problems noted. Brother No problems noted. Social History Household Members: Other Household Members Other:: Cat Housing: House Are you a primary respiratory care technician to a significant other at home: No Do you presently have visiting nurse or other home services: No Alcohol intake: current Alcohol intake frequency: holidays/special occasions only Patient Tobacco Use Status: Never used Tobacco e-Cigarette/Vaping Use: Never Used service: No Current occupational status: retired Cognitive needs: No Hearing needs: No Vision needs: No Questionnaire PHQ-9 Over the last 2 weeks, how often have you been bothered by any of the following problems? Depression Screening Interpretation: Negative Depression Screening Done: Yes Source: Developed by Drs. Abe Navarrete, Aftab Black and colleagues, with an educational michael from [employer]. Thrive Questionnaire Date Thrive assessed: 12/28/23 NAFISA-7 AMB Questionnaire NAFISA-7 Date NAFISA - 7 assessed: 12/28/23 Source: Developed by Drs. Abe Navarrete, Aftab Black and colleagues, with an educational michael from [employer]. Review of Systems Const All systems reviewed & are unremarkable except as noted in HPI and below Physical exam (Primary Care) Tobacco/Smoking Status: Tobacco use Status Tobacco use date assessed 12/28/23 01/11/24 10:02 Patient Tobacco Use Status Never used Tobacco 01/11/24 10:02 e-Cigarette/Vaping Use Never Used 01/11/24 10:02 Depression Screening Interpretation: Negative Thrive Assessment: Date of Thrive Assessment Date Thrive assessed 12/28/23 01/11/24 10:02 Const Other: awake alert oriented MMM RRR LS CTAB Anxious, appropriate and engaging BLE w/o edema, skin intact, + PP Assessment and Plan Assessment & Plan (1) Hyponatremia: Comment: based on labs, related to the HCTZ. Plan: labs Na+ 138. Plan: Remain off HCTZ & Sodium Chloride. Check BMP again in 2 weeks Code(s): E87.1 - Hypo-osmolality and hyponatremia (2) Hypertension: Comment: improved on Norvasc 5mg. Plan: STOP HS dose of clonidine (only take 1/2 0.1mg tab at HS), cont lisinopril 20mg QAM, Metoprolol 75 mg in the AM Would like to get her off clonidine however she admits anxiety. Therefore will slowly taper starting w/ HS dose. RTO in 2 weeks for f/u. Code(s): I10 - Essential (primary) hypertension Qualifiers: Hypertension type: essential hypertension Qualified Code(s): I10 - Essential (primary) hypertension (3) NAFISA (generalized anxiety disorder): Comment: chronic, on BB and Clonidine for BP and Anxiety. Was on SSRI in the past. Will need to explore further at next visit. Code(s): F41.1 - Generalized anxiety disorder Plan Total time spent caring for the patient today was 45 minutes. This includes time spent before the visit reviewing the chart, time spent during the visit, and time spent after the visit on documentation This note is constructed using voice recognition software. While every effort has been made to ensure accuracy in surgical instruments inspector, still errors may have been included Sometimes, these errors may affect the content or meaning of the given sentence . Orders: Orders Basic Metabolic Panel Today E87.1 - Hypo-osmolality and hyponatremia, I10 - Essential (primary) hypertension Medications: Changed From amlodipine (Norvasc) 5 mg PO .at bedtime 30 tabs 0RF To amlodipine (Norvasc) 5 mg PO .DAILY AT BEDTIME 30 tabs 0RF From metoprolol succinate ER 75 mg (3 x 25 mg) PO QPM 270 tabs 0RF To metoprolol succinate ER 75 mg (3 x 25 mg) PO DAILY 270 tabs 0RF Refilled lisinopril 20 mg PO DAILY 30 tabs 0RF Patient Instructions: Plan: STOP salt tablet and night time dose of clonidine Cont to take amlodipine at bedtime & the Lisinopril and Metoprolol in the morning. Please get your blood work done a few days before your next appointment, which will be in 2 weeks. Coding Level of Care Code Est Pt Level 5 (41486) Diagnoses Hyponatremia E87.1 Essential hypertension I10 Hypertension type: essential hypertension NAFISA (generalized anxiety disorder) F41.1
[2024-01-11 10:29] VITALS: BP 124/70; PULSE 67; RESP 12; O2SAT 98; BMI 16.7
[2024-01-11 11:03] VITALS: BP 124/68
== END 2024-01-11 11:16 | disposition home or self-care (01) ==
PROVIDERS: PCP Nurse Practitioner Family; Visit Provider Nurse Practitioner Family
DX: E87.1 Hypo-osmolality and hyponatremia (principal); I10 Essential (primary) hypertension; F41.1 Generalized anxiety disorder
CPT/HCPCS: 99215

== ENCOUNTER 2024-01-21 10:24 | Outpatient (REF) | payer MEDICARE, SELFPAY ==
[2024-01-21 11:31] LABS: Anion Gap 11 (12-20); Blood Urea Nitrogen 17 mg/dL (9-16); Calcium 9.6 mg/dL (8.4-10.2); Carbon Dioxide 28 mmol/L (22-29); Chloride 106 mmol/L (96-108); Estimated Glomerular Filt Rate > 60; Glucose Random 86 mg/dL (60-115); Potassium 4.1 mmol/L (3.3-5.1); Sodium 141 mmol/L (135-145)
== END 2024-01-21 10:25 | disposition home or self-care (01) ==
LOC: HO.10HDL 10:24
PROVIDERS: Visit Provider Nurse Practitioner Family
DX: E87.1 Hypo-osmolality and hyponatremia (principal); I10 Essential (primary) hypertension
CPT/HCPCS: 36415; 80048

== ENCOUNTER 2024-01-25 10:20 | Outpatient (AMB) | payer MEDICARE, SELFPAY ==
--- NOTE | 2024-01-25 10:25 | MHC.PC.OV ---
Vital Signs 01/25/24 10:30 01/25/24 10:53 Height 5 ft 6 in Weight 102 lb 8 oz BMI 16.5 BP 136/75 122/70 Blood Pressure Location Rt brachial Lt brachial Position Sitting Sitting Respiration 13 Pulse 74 Pulse Source Pulse Oximeter Temp 97.2 F Temp Source Temporal Artery Scan Pulse Oximetry (%) 100 Oxygen Delivery Method Room Air Intake Visit Reasons: 2 week FU HTN, OFF CLONIDINE, REPEAT NA LABS Intake Note: Patient is here for a 2 week follow up of hypertension, med changes and repeat labs. Order Picker Required: No Allergies No Known Allergies [No Known Allergies*] Allergy (Verified 01/25/24 10:45) Medication List - Last Reconciled 01/25/24 by Irene Lunsford, OCCUPATIONAL THERAPY DEPARTMENT CHAIR- amlodipine (Norvasc) 5 mg PO .DAILY AT BEDTIME carboxymethylcellulose sodium 0.5% (Refresh Tears) 1 drp ophthalmic (eye) BID clonidine HCl 0.1 mg PO BID 3 months lisinopril 20 mg PO DAILY metoprolol succinate ER 75 mg (3 x 25 mg) PO DAILY Tobacco use date assessed: 12/28/23 HPI HPI Comments History of Present Illness Details 73-year-old female with hypertension, anxiety, hyponatremia, hypothyroidism, hard of hearing, Status post bilat cataract extraction (2020) [facility] Health maintenance Mammogram declined Colonoscopy DEXA discussed today, will think about it Immunizations Reports UTD on flu and COVID vaccines Here today to follow-up hyponatremia and hypertension. At last office visit she was encouraged to remain the sodium chloride tablets. Newly ordered to stop HS dose of clonidine of what she was only taking a half of a 0.1 mg tablet. She was advised to continue her lisinopril 20 mg in the morning, metoprolol 75 mg in the morning and Norvasc 5 mg at bedtime. Initially she did notice some very mild edema of her ankles after initiating the Norvasc. At the last office visit this did improve. Her repeat labs done 01/21/2024 continue to show a normal sodium most recently 141 Today she reports feeling anxious over the past 2 weeks. Worried her BP would be high after stopping the HS Clonidine. Falling asleep before taking HS dose of norvasc. In regards to swelling, admits some puffiness in her feet that is transient. Wonders about using Garlique to help her cholesterol. [facility] Medical History (Updated 01/25/24 @ 11:10 by DINESH Hernandez) Scalp cyst Decreased hearing Surgical History No pertinent past surgical history Family History Father No problems noted. Mother No problems noted. Brother No problems noted. Social History (Updated 01/11/24 @ 10:[address] [facility]) Household Members: Other Household Members Other:: Cat Both parents involved: No Caregiver staying overnight: No Housing: House Are you a primary wound care nurse to a significant other at home: No Do you presently have visiting nurse or other home services: No 75 years or older and lives alone: Yes Alcohol intake: current Alcohol intake frequency: holidays/special occasions only Patient Tobacco Use Status: Never used Tobacco e-Cigarette/Vaping Use: Never Used service: No Current occupational status: retired Cognitive needs: No Hearing needs: No Vision needs: No Questionnaire Thrive Questionnaire Date Thrive assessed: 12/28/23 NAFISA-7 AMB Questionnaire NAFISA-7 Date NAFISA - 7 assessed: 12/28/23 Source: Developed by Drs. Abe Navarrete, Shonda Dillon, Aftab Stanford and colleagues, with an educational michael from [employer] Review of Systems Const All systems reviewed & are unremarkable except as noted in HPI and below Physical exam (Primary Care) Vital Signs: Last Vital Signs Temp 97.2 F 01/25/24 10:30 Pulse 74 01/25/24 10:30 Resp 13 01/25/24 10:30 BP 122/70 01/25/24 10:53 Pulse Ox 100 01/25/24 10:30 Oxygen Delivery Method Room Air 01/25/24 10:30 BMI result Body Mass Index 16.5 Tobacco/Smoking Status: Tobacco use Status Tobacco use date assessed 12/28/23 01/25/24 10:26 Patient Tobacco Use Status Never used Tobacco 01/25/24 10:26 e-Cigarette/Vaping Use Never Used 01/25/24 10:26 Thrive Assessment: Date of Thrive Assessment Date Thrive assessed 12/28/23 01/25/24 10:26 Const Other: awake alert oriented MMM RRR LS CTAB Anxious, appropriate and engaging BLE w/o edema, skin intact, + PP Assessment and Plan Assessment & Plan (1) Hypertension: Comment: At goal on Norvasc 5 mg, lisinopril 20 mg q.a.m., metoprolol 75 mg q.a.m., clonidine 0.1 mg q.a.m. Plan: Continue this medication regimen. Having a difficult time remembering to take her Norvasc at bedtime. Advised it is okay to take during the daytime. She should continue to monitor for edema over bilateral lower extremities. Stable at today's visit. Would like to get her off clonidine however she admits anxiety. We will follow up at next office visit in 4-6 weeks. Code(s): I10 - Essential (primary) hypertension Qualifiers: Hypertension type: essential hypertension Qualified Code(s): I10 - Essential (primary) hypertension (2) NAFISA (generalized anxiety disorder): Comment: chronic, on BB and Clonidine for BP and Anxiety. Was on SSRI in the past. Will need to explore further at next visit. Code(s): F41.1 - Generalized anxiety disorder (3) Hyponatremia: Comment: based on labs, related to the HCTZ. Plan: labs Na+ 138. Plan: Remain off HCTZ & Sodium Chloride. Repeat BMP continue to show normal sodium level 141. Hyponatremia is resolved and was related to medications. Code(s): E87.1 - Hypo-osmolality and hyponatremia (4) Dyslipidemia, goal LDL below 100: Comment: LDL 126 12/28/2023. Not currently on a statin. She would like to try garlic supplement. She would like to start this 1 week before next office visit as she is worried about the effects on her blood pressure as well as any side effects. She will need a repeat cholesterol profile sometime in March. Code(s): E78.5 - Hyperlipidemia, unspecified Plan This note is constructed using voice recognition software. While every effort has been made to ensure accuracy in tire shop mechanic, still errors may have been included Sometimes, these errors may affect the content or meaning of the given sentence . Total time spent caring for the patient today was 45 minutes. This includes time spent before the visit reviewing the chart, time spent during the visit, and time spent after the visit on documentation Medications: Changed From clonidine HCl 0.1 mg PO BID 3 months 180 tabs 1RF To clonidine HCl 0.1 mg PO DAILY 90 tabs 1RF 3 months Refilled amlodipine (Norvasc) 5 mg PO .DAILY AT BEDTIME 90 tabs 0RF lisinopril 20 mg PO DAILY 90 tabs 0RF Coding Level of Care Code Est Pt Level 5 (11051) Diagnoses Essential hypertension I10 Hypertension type: essential hypertension NAFISA (generalized anxiety disorder) F41.1 Hyponatremia E87.1 Dyslipidemia, goal LDL below 100 E78.5
[2024-01-25 10:30] VITALS: BP 136/75; PULSE 74; RESP 13; TEMP 36.2; O2SAT 100; BMI 16.5
[2024-01-25 10:53] VITALS: BP 122/70
== END 2024-01-25 11:14 | disposition home or self-care (01) ==
PROVIDERS: PCP Nurse Practitioner Family; Visit Provider Nurse Practitioner Family
DX: I10 Essential (primary) hypertension (principal); F41.1 Generalized anxiety disorder; E87.1 Hypo-osmolality and hyponatremia; E78.5 Hyperlipidemia, unspecified
CPT/HCPCS: 99215

== ENCOUNTER 2024-02-19 11:17 | Outpatient (REF) | payer SELFPAY | END 2024-02-19 11:18 | disposition home or self-care (01) | LOC: HO.HAP 11:17 | PROVIDERS: Visit Provider Nurse Practitioner Family | DX: Z46.1 Encounter for fitting and adjustment of hearing aid (principal); H90.3 Sensorineural hearing loss, bilateral; H61.22 Impacted cerumen, left ear | CPT/HCPCS: V5266 ==

== ENCOUNTER 2024-02-29 10:23 | Outpatient (AMB) | payer MEDICARE, SELFPAY ==
--- NOTE | 2024-02-29 10:28 | A.OFFPC_ITS ---
Vital Signs 02/29/24 10:29 02/29/24 11:17 Height 5 ft 6 in Weight 103 lb BMI 16.6 BP 148/88 H 124/70 Blood Pressure Location Rt brachial Lt brachial Position Sitting Sitting Respiration 13 Pulse 78 Pulse Source Pulse Oximeter Pulse Oximetry (%) 99 Oxygen Delivery Method Room Air Intake Visit Reasons: FU HTN Intake Note: Patient reports she is here to follow up for hypertension. Patient reports she is currently undergoing stress and believes her blood pressure is anxiety driven. Continuous Improvement Analyst Required: No Accompanied by: Self / Same As Patient Allergies No Known Allergies [No Known Allergies*] Allergy (Verified 02/29/24 11:09) Medication List - Last Reconciled 02/29/24 by DINESH Hernandez amlodipine (Norvasc) 5 mg PO .DAILY AT BEDTIME carboxymethylcellulose sodium 0.5% (Refresh Tears) 1 drp ophthalmic (eye) BID clonidine HCl 0.1 mg PO DAILY 3 months lisinopril 20 mg PO DAILY metoprolol succinate ER 75 mg (3 x 25 mg) PO DAILY Tobacco use date assessed: 12/28/23 Dental Screening Dental Screen Date: 12/28/23 HPI HPI Comments History of Present Illness Details 73-year-old female with hypertension, an xiety, hyponatremia, hypothyroidism, hard of hearing, Status post bilat cataract extraction (2020) [facility] Health maintenance Mammogram declined Colonoscopy DEXA discussed today, will think about it Immunizations Reports UTD on flu and COVID vaccines Here today to discuss her anxiety Feeling very tense and exhausted in the evening, pushing herself very hard Family issues - gets emotionally involved in this. Having bowel incont. that would come and go, started last Summer. Better since onset. BMs are now normal Today reports abd bloating and a tight squeezing sensation in her abd that occurs at HS. Last week was having palpitations. Check her pulse at home 90bpm during this event. Was able to be calmed by male friend. P 70 & remained there. Wt is stable. Denies blood, vomiting. Was on SSRI in the past. Is open to counseling. Denies SI and HI. She is adamant that she does not want testing to look for other problems [facility] Medical History (Updated 02/29/24 @ 13:58 by DINESH Hernandez) Scalp cyst Decreased hearing Surgical History No pertinent past surgical history Family History Father No problems noted. Mother No problems noted. Brother No problems noted. Social History (Updated 01/11/24 @ 10:40 by Claudia Mosley [facility]) Household Members: Other Household Members Other:: Cat Both parents involved: No Caregiver staying overnight: No Housing: House Are you a primary intensive care nurse to a significant other at home: No Do you presently have visiting nurse or other home services: No 75 years or older and lives alone: Yes Alcohol intake: current Alcohol intake frequency: holidays/special occasions only Patient Tobacco Use Status: Never used Tobacco e-Cigarette/Vaping Use: Never Used service: No Current occupational status: retired Cognitive needs: No Hearing needs: No Vision needs: No Questionnaire Thrive Questionnaire Date Thrive assessed: 12/28/23 NAFISA-7 AMB Questionnaire NAFISA-7 Date NAFISA - 7 assessed: 12/28/23 Source: Developed by Drs. Abe Navarrete, Shonda Dillon, Aftab Stanford and colleagues, with an educational michael from [employer]. Review of Systems Const All systems reviewed & are unremarkable except as noted in HPI and below Physical exam (Primary Care) Vital Signs: Last Vital Signs Pulse 78 02/29/24 10:29 Resp 13 02/29/24 10:29 BP 124/70 02/29/24 11:17 Pulse Ox 99 02/29/24 10:29 Oxygen Delivery Method Room Air 02/29/24 10:29 BMI result Body Mass Index 16.6 Tobacco/Smoking Status: Tobacco use Status Tobacco use date assessed 12/28/23 02/29/24 10:35 Patient Tobacco Use Status Never used Tobacco 02/29/24 10:35 e-Cigarette/Vaping Use Never Used 02/29/24 10:35 Thrive Assessment: Date of Thrive Assessment Date Thrive assessed 12/28/23 02/29/24 10:35 Const Other: awake alert oriented MMM RRR LS CTAB Anxious, appropriate and engaging BLE w/o edema, skin intact, + PP Assessment and Plan Assessment & Plan (1) NAFISA (generalized anxiety disorder): Comment: chronic, on BB and Clonidine for BP and Anxiety. Plan: Refer to counseling and start BuSpar 5 mg p.o. b.i.d.. Code(s): F41.1 - Generalized anxiety disorder Plan Total time spent caring for the patient today was 45. This note is constructed using voice recognition software. While every effort has been made to ensure accuracy in patient care coordinator, still errors may have been included Sometimes, these errors may affect the content or meaning of the given sentence . minutes. This includes time spent before the visit reviewing the chart, time spent during the visit, and time spent after the visit on documentation Orders: Referrals Nurse Navigator Referral F41.1 - Generalized anxiety disorder Medications: New buspirone 5 mg PO BID 60 tabs 0RF Patient Instructions: Return to office in 3-4 weeks to evaluate effectiveness of BuSpar. Coding Level of Care Code Est Pt Level 5 (11146) Diagnoses NAFISA (generalized anxiety disorder) F41.1
[2024-02-29 10:29] VITALS: BP 148/88; PULSE 78; RESP 13; O2SAT 99; BMI 16.6
[2024-02-29 11:17] VITALS: BP 124/70
== END 2024-02-29 11:36 | disposition home or self-care (01) ==
PROVIDERS: PCP Nurse Practitioner Family; Visit Provider Nurse Practitioner Family
DX: F41.1 Generalized anxiety disorder (principal)
CPT/HCPCS: 99215

== ENCOUNTER 2024-03-14 10:01 | Outpatient (REF) | payer SELFPAY | END 2024-03-14 10:02 | disposition home or self-care (01) | LOC: HO.HAP 10:01 | PROVIDERS: Visit Provider Nurse Practitioner Family | DX: Z46.1 Encounter for fitting and adjustment of hearing aid (principal); H90.A32 Mixed conductive and sensorineural hearing loss, unilateral, left ear with restricted hearing on the contralateral side; H90.A21 Sensorineural hearing loss, unilateral, right ear, with restricted hearing on the contralateral side | CPT/HCPCS: 92593; V5267 ==

== ENCOUNTER 2024-03-23 10:03 | Outpatient (AMB) | payer MEDICARE, SELFPAY ==
--- NOTE | 2024-03-23 10:05 | MHC.PC.OV ---
Vital Signs 03/23/24 10:07 03/23/24 10:36 Height 5 ft 6 in Weight 100 lb 6 oz BMI 16.2 BP 110/62 110/64 Blood Pressure Location Lt brachial Lt brachial Position Sitting Sitting Respiration 13 Pulse 77 Pulse Source Pulse Oximeter Pulse Oximetry (%) 99 Oxygen Delivery Method Room Air Intake Visit Reasons: f/u NAFISA 30min 03/23 Intake Note: Patient is here to follow up for anxiety. Patient reports she had a broken tooth removed yesterday and she has been eating soft foods when she is able. Supply Officer Required: No Accompanied by: Self / Same As Patient Allergies No Known Allergies [No Known Allergies*] Allergy (Verified 03/23/24 10:19) Medication List - Last Reconciled 03/23/24 by DINESH Hernandez amlodipine (Norvasc) 5 mg PO .DAILY AT BEDTIME buspirone 5 mg PO BID carboxymethylcellulose sodium 0.5% (Refresh Tears) 1 drp ophthalmic (eye) BID clonidine HCl 0.1 mg PO DAILY 3 months lisinopril 20 mg PO DAILY metoprolol succinate ER 75 mg (3 x 25 mg) PO DAILY Tobacco use date assessed: 12/28/23 Dental Screening Dental Screen Date: 12/28/23 HPI HPI Comments History of Present Illness Details 73-year-old female with hypertension, anxiety, hyponatremia, hypothyroidism, hard of hearing, Status post bilat cataract extraction (2020) Here today to f/u on NAFISA Since last OV started on buspar, taking as directed Overall, feels it has helped some. Also started to take Garlique supplement Was contacted for counseling intake; she needs to call them back to set up appt. has been talking to God a lot... always have but putting more into it and getting more out of it. In regards to the previously mentioned GI complaints, this is near resolved. [facility] Medical History (Updated 03/23/24 @ 10:31 by DINESH Hernandez) Scalp cyst Decreased hearing Surgical History No pertinent past surgical history Family History Father No problems noted. Mother No problems noted. Brother No problems noted. Social History (Updated 01/11/24 @ 10:40 by Claudia Mosley [facility]) Household Members: Other Household Members Other:: Cat Both parents involved: No Caregiver staying overnight: No Housing: House Are you a primary animal caretaker to a significant other at home: No Do you presently have visiting nurse or other home services: No 75 years or older and lives alone: Yes Alcohol intake: current Alcohol intake frequency: holidays/special occasions only Patient Tobacco Use Status: Never used Tobacco e-Cigarette/Vaping Use: Never Used service: No Current occupational status: retired Cognitive needs: No Hearing needs: No Vision needs: No Questionnaire Thrive Questionnaire Date Thrive assessed: 12/28/23 NAFISA-7 AMB Questionnaire NAFISA-7 Date NAFISA - 7 assessed: 03/23/24 Feeling nervous, anxious, or on edge: 1 = Several days Not being able to stop or control worryin = More than half the days Worrying too much about different things: 2 = More than half the days Trouble relaxin = Several days Being so restless that it is hard to sit still: 1 = Several days Becoming easily annoyed or irritable: 0 = Not at all Feeling afraid as if something awful might happen: 2 = More than half the days Total NAFISA-7 score (0-4 normal; 5-9 mild; 10-14 moderate; 15-21 severe): 9 Source: Developed by Drs. Abe Navarrete, Shonda Dillon, Aftab Stanford and colleagues, with an educational michael from [employer]. NAFISA-7 Assessment Billing NAFISA-7 Assessment Tool: NAFISA-7 Assessment 46621 Review of Systems Const All systems reviewed & are unremarkable except as noted in HPI and below Physical exam (Primary Care) Vital Signs: Last Vital Signs Pulse 77 03/23/24 10:07 Resp 13 03/23/24 10:07 BP 110/64 03/23/24 10:36 Pulse Ox 99 03/23/24 10:07 Oxygen Delivery Method Room Air 03/23/24 10:07 BMI result Body Mass Index 16.2 Tobacco/Smoking Status: Tobacco use Status Tobacco use date assessed 12/28/23 03/23/24 10:15 Patient Tobacco Use Status Never used Tobacco 03/23/24 10:15 e-Cigarette/Vaping Use Never Used 03/23/24 10:15 Thrive Assessment: Date of Thrive Assessment Date Thrive assessed 12/28/23 03/23/24 10:15 Const Other: awake alert oriented MMM RRR LS CTAB Mildly Anxious, much less than previous exams appropriate and engaging BLE w/o edema, skin intact, + PP Assessment and Plan Assessment & Plan (1) NAFISA (generalized anxiety disorder): Comment: chronic, on BB and Clonidine for BP and Anxiety. Plan: Refer to counseling and increase BuSpar to 7.5 mg p.o. b.i.d. from 5mg BID Code(s): F41.1 - Generalized anxiety disorder Plan This note is constructed using voice recognition software. While every effort has been made to ensure accuracy in ammunition and explosives handler, still errors may have been included Sometimes, these errors may affect the content or meaning of the given sentence . Total time spent caring for the patient today was 30 minutes. This includes time spent before the visit reviewing the chart, time spent during the visit, and time spent after the visit on documentation Orders: Orders LDL Cholesterol Direct 04/18/24 E78.5 - Hyperlipidemia, unspecified, I10 - Essential (primary) hypertension Comprehensive Met. Panel 04/18/24 E78.5 - Hyperlipidemia, unspecified, I10 - Essential (primary) hypertension Medications: New buspirone 7.5 mg PO BID 60 tabs 0RF Refilled metoprolol succinate ER 75 mg (3 x 25 mg) PO DAILY 270 tabs 0RF Discontinued buspirone Discontinued Reason: Doctor's Order 5 mg PO BID 60 tabs 0RF Patient Instructions: Return to office at week of April to follow up on BuSpar increased to treat her anxiety as well as chronic conditions. Please get labs done 1 week before that we may discuss. Sooner appointment as needed. Coding Level of Care Code Est Pt Level 4 (84029) Diagnoses NAFISA (generalized anxiety disorder) F41.1 Additional Codes NAFISA-7 Assessment Billing - NAFISA-7 Assessment Tool: NAFISA-7 Assessment 76400 ([id number])
[2024-03-23 10:07] VITALS: BP 110/62; PULSE 77; RESP 13; O2SAT 99; BMI 16.2
[2024-03-23 10:36] VITALS: BP 110/64
== END 2024-03-23 10:46 | disposition home or self-care (01) ==
PROVIDERS: PCP Nurse Practitioner Family; Visit Provider Nurse Practitioner Family
DX: F41.1 Generalized anxiety disorder (principal)
CPT/HCPCS: 99214

== ENCOUNTER 2024-04-14 10:43 | Outpatient (REF) | payer SELFPAY | END 2024-04-14 10:44 | disposition home or self-care (01) | LOC: HO.HAP 10:43 | PROVIDERS: Visit Provider Nurse Practitioner Family | DX: Z46.1 Encounter for fitting and adjustment of hearing aid (principal) | CPT/HCPCS: V5266 ==

== ENCOUNTER 2024-04-15 09:57 | Outpatient (REF) | payer MEDICARE, SELFPAY ==
[2024-04-15 10:59] LABS: Alanine Aminotransferase 18 U/L (0-31); Alkaline Phosphatase 53 U/L (39-117); Anion Gap 12 (12-20); Aspartate Amino Transferase 26 U/L (5-31); Bilirubin Total 1.2 mg/dL (0.0-1.0); Blood Urea Nitrogen 21 mg/dL (9-16); Calcium 9.5 mg/dL (8.4-10.2); Carbon Dioxide 26 mmol/L (22-29); Chloride 106 mmol/L (96-108); Estimated Glomerular Filt Rate > 60; Glucose Random 91 mg/dL (60-115); Potassium 4.3 mmol/L (3.3-5.1); Sodium 140 mmol/L (135-145); Total Protein 6.8 g/dL (6.5-8.0)
[2024-04-16 11:09] LABS: LDL Cholesterol Direct 128 mg/dL (<100)
== END 2024-04-15 09:58 | disposition home or self-care (01) ==
LOC: HO.10HDL 09:57
PROVIDERS: Visit Provider Nurse Practitioner Family
DX: E78.5 Hyperlipidemia, unspecified (principal); I10 Essential (primary) hypertension
CPT/HCPCS: 36415; 80053; 83721

== ENCOUNTER 2024-04-25 10:28 | Outpatient (AMB) | payer MEDICARE, SELFPAY ==
--- NOTE | 2024-04-25 10:36 | MHC.PC.OV ---
Vital Signs 04/25/24 10:44 Height 5 ft 6 in Weight 101 lb BMI 16.3 BP 128/64 Blood Pressure Location Lt brachial Position Sitting Respiration 14 Pulse 67 Pulse Source Pulse Oximeter Temp 97.7 F Temp Source Oral Pulse Oximetry (%) 99 Oxygen Delivery Method Room Air Intake Visit Reasons: first week of April 30 min FU NAFISA, HTN Intake Note: Follow up anxiety. Patient states she takes takes metoprolol 25 mg 3 times in the am, and 3 times in the pm. Chart says 25mg 3 times a day. Special Procedures Technologist Required: No Allergies No Known Allergies [No Known Allergies*] Allergy (Verified 04/25/24 10:52) Medication List - Last Reconciled 04/25/24 by Irene Lunsford, DUC- amlodipine (Norvasc) 5 mg PO .DAILY AT BEDTIME buspirone 7.5 mg (1.5 x 5 mg) PO BID 90 days carboxymethylcellulose sodium 0.5% (Refresh Tears) 1 drp ophthalmic (eye) BID clonidine HCl 0.1 mg PO DAILY 3 months lisinopril 20 mg PO DAILY metoprolol succinate ER 75 mg PO ONCE Tobacco use date assessed: 12/28/23 Last assessed Fall Risk: 04/25/24 Dental Screening Dental Screen Date: 12/28/23 HPI HPI Comments History of Present Illness Details 74-year-old female with hypertension, anxiety, hyponatremia, hypothyroidism, hard of hearing, Status post bilat cataract extraction (2020) [facility] Here today for routine fu of chronic conditions; below labs reviewed w/ her today Labs 04/15/2024 showed normal lytes, BUN 21, creatinine 0.86, EGFR greater than 60, normal glucose, total bilirubin 1.2, normal LFTs, LDL 128 (126 in Dec 2023) Upon entering exam room, Noticed R facial droop, affecting the right upper and lower lips. Immediate assessment was done. Neuro exam grossly intact w/ the exception of right facial droop. She reports she had extensive dental repair on this side over the last few weeks. She feels in her normal state of health and denies any stroke like sx. In regards to her HTN - Discussed Metoprolol - she is NOT taking it TWICE per day, taking DAILY as directed. She is taking all meds as directed and her BP remains well controlled. In regards to her NAFISA she has had improvement with the buspar; hard time splitting the tabs but this is more cost effective for her. MAking her feel a little tired, however tolerable. Hyperlipidemia - does not want to start statin. LDL is above goal however pretty steady. She is taking Garlique & wishes to cont. Plan: Monitor for stroke like sx or worsening of R facial droop. We reviewed this today in great detail. Cont to take all meds as directed for your blood pressure. Cont Buspar as directed Cont Garlique. Repeat lipid profile in 6 months. She wishes to be ff'd sooner rather than later for the R facial droop as she admits a great deal of anxiety at baseline, unfortunatley this has increased her anxiety. Offered CT scan, though do not feel hard pressed to do this; she declines at this time. [facility] Medical History (Updated 04/25/24 @ 13:29 by DINESH Hernandez) Scalp cyst Decreased hearing Surgical History No pertinent past surgical history Family History Father No problems noted. Mother No problems noted. Brother No problems noted. Social History (Updated 01/11/24 @ 10:40 by Claudia Mosley [facility]) Household Members: Other Household Members Other:: Cat Both parents involved: No Caregiver staying overnight: No Housing: House Are you a primary college and career counselor to a significant other at home: No Do you presently have visiting nurse or other home services: No 75 years or older and lives alone: Yes Alcohol intake: current Alcohol intake frequency: holidays/special occasions only Patient Tobacco Use Status: Never used Tobacco e-Cigarette/Vaping Use: Never Used service: No Current occupational status: retired Cognitive needs: No Hearing needs: No Vision needs: No Questionnaire PHQ-9 Over the last 2 weeks, how often have you been bothered by any of the following problems? 1. Little interest or pleasure in doing things: not at all 2. Feeling down, depressed, or hopeless: several days 3. Trouble falling or staying asleep, or sleeping too much: not at all 4. Feeling tired or having little energy: not at all 5. Poor appetite or overeating: not at all 6. Feeling bad about yourself - or that you are a failure or have let yourself or your family down: not at all 7. Trouble concentrating on things, such as reading the newspaper or watching television: not at all 8. Moving or speaking so slowly that other people could have noticed. Or the opposite - being so fidgety or restless that you have been moving around a lot more than usual: not at all 9. Thoughts that you would be better off or of hurting yourself in some way: not at all Total score: 1 Depression Screening Interpretation: Negative Depression Screening Done: Yes 11790 - PHQ-9 Billing: Yes Source: Developed by Drs. Abe Navarrete, Shonda Dillon, Aftab Stanford and colleagues, with an educational michael from [employer]. Thrive Questionnaire Date Thrive assessed: 12/28/23 NAFISA-7 AMB Questionnaire NAFISA-7 Date NAFISA - 7 assessed: 04/25/24 Feeling nervous, anxious, or on edge: 2 = More than half the days Not being able to stop or control worryin = More than half the days Worrying too much about different things: 2 = More than half the days Trouble relaxin = More than half the days Being so restless that it is hard to sit still: 0 = Not at all Becoming easily annoyed or irritable: 1 = Several days Feeling afraid as if something awful might happen: 1 = Several days Total NAFISA-7 score (0-4 normal; 5-9 mild; 10-14 moderate; 15-21 severe): 10 Source: Developed by Drs. Abe Navarrete, Aftab Black and colleagues, with an educational michael from [employer]. NAFISA-7 Assessment Billing NAFISA-7 Assessment Tool: NAFISA-7 Assessment 83565 Review of Systems Const All systems reviewed & are unremarkable except as noted in HPI and below Physical exam (Primary Care) Vital Signs: Last Vital Signs Temp 97.7 F 04/25/24 10:44 Pulse 67 04/25/24 10:44 Resp 14 04/25/24 10:44 BP 128/64 04/25/24 10:44 Pulse Ox 99 04/25/24 10:44 Oxygen Delivery Method Room Air 04/25/24 10:44 BMI result Body Mass Index 16.3 Tobacco/Smoking Status: Tobacco use Status Tobacco use date assessed 12/28/23 04/25/24 10:42 Patient Tobacco Use Status Never used Tobacco 04/25/24 10:42 e-Cigarette/Vaping Use Never Used 04/25/24 10:42 PHQ-9: PHQ-9 Score PHQ-9: Total score 1 04/25/24 11:09 Depression Screening Interpretation: Negative Thrive Assessment: Date of Thrive Assessment Date Thrive assessed 12/28/23 04/25/24 10:42 Const Other: awake alert oriented MMM RRR LS CTAB Mildly Anxious, much less than previous exams appropriate and engaging BLE w/o edema, skin intact, + PP Right facial droop only affecting upper Assessment and Plan Assessment & Plan (1) Hypertension: Comment: At goal on Norvasc 5 mg, lisinopril 20 mg q.a.m., metoprolol 75 mg q.a.m., clonidine 0.1 mg q.a.m. Plan: Continue this medication regimen. Code(s): I10 - Essential (primary) hypertension Qualifiers: Hypertension type: essential hypertension Qualified Code(s): I10 - Essential (primary) hypertension (2) Dyslipidemia, goal LDL below 100: Comment: LDL 126 12/28/2023. 03/2024 128 Not currently on a statin. She would like to try garlic supplement. Code(s): E78.5 - Hyperlipidemia, unspecified (3) NAFISA (generalized anxiety disorder): Comment: chronic, on BB and Clonidine for BP and Anxiety. Plan: Referred to counseling and increase BuSpar to 7.5 mg p.o. b.i.d. from 5mg BID Code(s): F41.1 - Generalized anxiety disorder (4) Facial asymmetry: Comment: right side of face, affecting right side of mouth ONLY otherwise normal neuro exam 03/2024; this started after dental work Code(s): Q67.0 - Congenital facial asymmetry Plan This note is constructed using voice recognition software. While every effort has been made to ensure accuracy in cutting pressman, still errors may have been included Sometimes, these errors may affect the content or meaning of the given sentence . Total time spent caring for the patient today was 45 minutes. This includes time spent before the visit reviewing the chart, time spent during the visit, and time spent after the visit on documentation Orders: Orders Comprehensive [place]. Panel Fast 08/23/24 E78.5 - Hyperlipidemia, unspecified, I10 - Essential (primary) hypertension Lipid Panel 08/23/24 E78.5 - Hyperlipidemia, unspecified, I10 - Essential (primary) hypertension Medications: Changed From metoprolol succinate ER 75 mg (3 x 25 mg) PO DAILY 270 tabs 0RF To metoprolol succinate ER 75 mg PO ONCE Patient Instructions: Plan: Monitor for stroke like sx or worsening of R facial droop. We reviewed this today in great detail. Cont to take all meds as directed for your blood pressure. Cont Buspar as directed Cont Abby. Repeat lipid profile in 6 months. She wishes to be ff'd sooner rather than later for the R facial droop as she admits a great deal of anxiety at baseline, unfortunatley this has increased her anxiety. Offered CT scan, though do not feel hard pressed to do this; she declines at this time. Coding Level of Care Code Est Pt Level 5 (30552) Diagnoses Essential hypertension I10 Hypertension type: essential hypertension Dyslipidemia, goal LDL below 100 E78.5 NAFISA (generalized anxiety disorder) F41.1 Facial asymmetry Q67.0 Additional Codes NAFISA-7 Assessment Billing - NAFISA-7 Assessment Tool: NAFISA-7 Assessment 92115 ([id number])
[2024-04-25 10:44] VITALS: BP 128/64; PULSE 67; RESP 14; TEMP 36.5; O2SAT 99; BMI 16.3
== END 2024-04-25 11:22 | disposition home or self-care (01) ==
PROVIDERS: PCP Nurse Practitioner Family; Visit Provider Nurse Practitioner Family
DX: I10 Essential (primary) hypertension (principal); E78.5 Hyperlipidemia, unspecified; F41.1 Generalized anxiety disorder; Q67.0 Congenital facial asymmetry
CPT/HCPCS: 99215

== ENCOUNTER 2024-05-06 12:21 | Outpatient (REF) | payer MEDICARE, SELFPAY | END 2024-05-06 12:22 | disposition home or self-care (01) | LOC: HO.SH 12:21 | PROVIDERS: Visit Provider Nurse Practitioner Family | DX: Z01.118 Encounter for examination of ears and hearing with other abnormal findings (principal); H90.A32 Mixed conductive and sensorineural hearing loss, unilateral, left ear with restricted hearing on the contralateral side; H90.A21 Sensorineural hearing loss, unilateral, right ear, with restricted hearing on the contralateral side | CPT/HCPCS: 92557 ==

== ENCOUNTER 2024-06-22 09:40 | Outpatient (AMB) | payer MEDICARE, SELFPAY ==
--- NOTE | 2024-06-22 09:43 | A.OFFPC_ITS ---
Vital Signs 06/22/24 09:48 06/22/24 10:12 Height 5 ft 6 in Weight 101 lb 2 oz BMI 16.3 BP 130/74 124/68 Blood Pressure Location Rt brachial Lt brachial Position Sitting Sitting Respiration 16 Pulse 66 Pulse Source Pulse Oximeter Temp 97.7 F Temp Source Oral Pulse Oximetry (%) 99 Oxygen Delivery Method Room Air Intake Visit Reasons: f/u slight droop right side Intake Note: patient here for follow up on blood pressure and meds. Compliance Counsel Required: No Is last menstrual period known: No Post menopausal: No Patient : No Allergies No Known Allergies [No Known Allergies*] Allergy (Verified 06/22/24 09:47) Medication List - Last Reconciled 06/22/24 by Irene Lunsford, SALES AUDIT CLERK- amlodipine (Norvasc) 5 mg PO .DAILY AT BEDTIME buspirone 7.5 mg (1.5 x 5 mg) PO BID 90 days carboxymethylcellulose sodium 0.5% (Refresh Tears) 1 drp ophthalmic (eye) BID clonidine HCl 0.1 mg PO DAILY 3 months lisinopril 20 mg PO DAILY metoprolol succinate ER 75 mg PO ONCE Tobacco use date assessed: 06/22/24 Fall risk assessment: No Falls in past year Dental Screening Dental Screen Date: 12/28/23 HPI HPI Comments History of Present Illness Details 74-year-old female with hypertension, an xiety, hyponatremia, hypothyroidism, hard of hearing, Status post bilat cataract extraction (2020) Here today to fu on R facial droop noted at last visit, thought likely related to dental procedures. Did see dentist after the last visit Admits they agree was related to dental work and no concern for stroke She did monitor herself and had no sx Admits lots of anxiety related to this. HTN well controlled on current meds. Needs refill on Metoprolol Thickened painful toe nails, bilat. feet, multiple toes. Cannot cut them would like to see bioprocess development engineer Exam: awake alert oriented MMM RRR LS CTAB Mildly Anxious,appropriate BLE w/o edema, skin intact, + PP Thickened fungal toe nails bilat feet; left great toe nail covered with dressing, declined to remove today embarrassed . Right facial droop only affecting upper cont though mildly improved Plan: Continue all medications as directed Reassured about the facial droop noted, related to dental procedure Referral to podiatry to treat onychomycosis Return to office in August for routine follow up, with fasting labs done 1 week before. Sooner as needed. This note is constructed using voice recognition software. While every effort has been made to ensure accuracy in therapeutic assistant, still errors may have been included Sometimes, these errors may affect the content or meaning of the given sentence . Total time spent caring for the patient today was 30 minutes. This includes time spent before the visit reviewing the chart, time spent during the visit, and time spent after the visit on documentation [facility] Medical History (Updated 06/22/24 @ 10:10 by DINESH Hernandez) Scalp cyst Decreased hearing Surgical History No pertinent past surgical history Family History Father No problems noted. Mother No problems noted. Brother No problems noted. Social History (Updated 01/11/24 @ 10:40 by Claudia Mosley [facility]) Household Members: Other Household Members Other:: Cat Both parents involved: No Caregiver staying overnight: No Housing: House Are you a primary senior care manager to a significant other at home: No Do you presently have visiting nurse or other home services: No 75 years or older and lives alone: Yes Alcohol intake: current Alcohol intake frequency: holidays/special occasions only Patient Tobacco Use Status: Never used Tobacco e-Cigarette/Vaping Use: Never Used service: No Current occupational status: retired Cognitive needs: No Hearing needs: No Vision needs: No Questionnaire Thrive Questionnaire Date Thrive assessed: 12/28/23 NAFISA-7 AMB Questionnaire NAFISA-7 Date NAFISA - 7 assessed: 04/25/24 Source: Developed by Drs. Aeb Navarrete, Shonda Dillon, Aftab Stanford and colleagues, with an educational michael from [employer]. Physical exam (Primary Care) Vital Signs: Last Vital Signs Temp 97.7 F 06/22/24 09:48 Pulse 66 06/22/24 09:48 Resp 16 06/22/24 09:48 BP 124/68 06/22/24 10:12 Pulse Ox 99 06/22/24 09:48 Oxygen Delivery Method Room Air 06/22/24 09:48 BMI result Body Mass Index 16.3 Tobacco/Smoking Status: Tobacco use Status Tobacco use date assessed 06/22/24 06/22/24 09:52 Patient Tobacco Use Status Never used Tobacco 06/22/24 09:45 e-Cigarette/Vaping Use Never Used 06/22/24 09:45 Thrive Assessment: Date of Thrive Assessment Date Thrive assessed 12/28/23 06/22/24 09:45 Assessment and Plan Assessment & Plan (1) Hypertension: Comment: At goal on Norvasc 5 mg, lisinopril 20 mg q.a.m., metoprolol 75 mg q.a.m., clonidine 0.1 mg q.a.m. Plan: Continue this medication regimen. Code(s): I10 - Essential (primary) hypertension Qualifiers: Hypertension type: essential hypertension Qualified Code(s): I10 - Essential (primary) hypertension (2) Facial asymmetry: Comment: right side of face, affecting right side of mouth ONLY otherwise normal neuro exam 03/2024; this started after dental work Code(s): Q67.0 - Congenital facial asymmetry (3) Onychomycosis: Code(s): B35.1 - Tinea unguium Orders: Referrals Podiatry Referral B35.1 - Tinea unguium Medications: New metoprolol succinate ER 75 mg (3 x 25 mg) PO ONCE 270 tabs 0RF Coding Level of Care Code Est Pt Level 4 (99947) Diagnoses Essential hypertension I10 Hypertension type: essential hypertension Facial asymmetry Q67.0 Onychomycosis B35.1
[2024-06-22 09:48] VITALS: BP 130/74; PULSE 66; RESP 16; TEMP 36.5; O2SAT 99; BMI 16.3
[2024-06-22 10:12] VITALS: BP 124/68
== END 2024-06-22 10:21 | disposition home or self-care (01) ==
PROVIDERS: PCP Nurse Practitioner Family; Visit Provider Nurse Practitioner Family
DX: I10 Essential (primary) hypertension (principal); Q67.0 Congenital facial asymmetry; B35.1 Tinea unguium
CPT/HCPCS: 99214

== ENCOUNTER 2024-07-07 15:16 | Outpatient (REF) | payer SELFPAY | END 2024-07-07 15:17 | disposition home or self-care (01) | LOC: HO.HAP 15:16 | PROVIDERS: Visit Provider Nurse Practitioner Family | DX: Z46.1 Encounter for fitting and adjustment of hearing aid (principal); H90.A32 Mixed conductive and sensorineural hearing loss, unilateral, left ear with restricted hearing on the contralateral side; H90.A21 Sensorineural hearing loss, unilateral, right ear, with restricted hearing on the contralateral side | CPT/HCPCS: V5266 ==

== ENCOUNTER 2024-09-02 08:27 | Outpatient (REF) | payer MEDICARE, SELFPAY ==
[2024-09-02 11:01] LABS: Alanine Aminotransferase 16 U/L (0-31); Albumin Level 4.5 g/dL (3.5-5.0); Alkaline Phosphatase 68 U/L (39-117); Anion Gap 12 (12-20); Aspartate Amino Transferase 29 U/L (5-31); Bilirubin Total 1.6 mg/dL (0.0-1.0); Blood Urea Nitrogen 20 mg/dL (9-16); Calcium 10.2 mg/dL (8.4-10.2); Carbon Dioxide 28 mmol/L (22-29); Chloride 104 mmol/L (96-108); Cholesterol 214 mg/dL (<200); Estimated Glomerular Filt Rate 57; Glucose Fasting 95 mg/dL (60-99); HDL Cholesterol 74 mg/dL (>40); LDL Cholesterol Calculated 126 mg/dL (<100); Potassium 3.9 mmol/L (3.3-5.1); Sodium 140 mmol/L (135-145); Total Protein 7.4 g/dL (6.5-8.0); Triglycerides 70 mg/dL (<150)
== END 2024-09-02 08:28 | disposition home or self-care (01) ==
LOC: HO.10HDL 08:27
PROVIDERS: Visit Provider Nurse Practitioner Family
DX: I10 Essential (primary) hypertension (principal); E78.5 Hyperlipidemia, unspecified
CPT/HCPCS: 36415; 80053; 80061

== ENCOUNTER 2024-09-09 10:20 | Outpatient (AMB) | payer MEDICARE, SELFPAY ==
--- NOTE | 2024-09-09 10:22 | AM.OFFVISMDC ---
Intake Vital Signs 09/09/24 10:29 09/09/24 11:16 Height 5 ft 6 in Weight 102 lb 6 oz BMI 16.5 BP 112/68 114/62 Blood Pressure Location Lt brachial Lt brachial Position Sitting Sitting Respiration 13 Pulse 65 Pulse Source Pulse Oximeter Pulse Oximetry (%) 98 Oxygen Delivery Method Room Air Intake Visit Reasons: routine fu, labs 1 week before Intake Note: Medicare wellness visit Allergies No Known Allergies [No Known Allergies*] Allergy (Verified 09/09/24 10:53) Medication List - Last Reconciled 09/09/24 by Irene Lunsford, SAW MAKER- amlodipine (Norvasc) 5 mg PO .DAILY AT BEDTIME buspirone 7.5 mg (1.5 x 5 mg) PO BID 90 days carboxymethylcellulose sodium 0.5% (Refresh Tears) 1 drp ophthalmic (eye) BID clonidine HCl 0.1 mg PO DAILY 3 months lisinopril 20 mg PO DAILY metoprolol succinate ER 75 mg (3 x 25 mg) PO ONCE Do you need a note to return to daycare/school/sports/work: No HPI HPI Comments History of Present Illness Details Here today for AWV. The Medicare Annual Wellness Visit (AWV) is a yearly appointment with a health professional to identify health risks and help reduce them and to create or update a personalized prevention plan. During a Medicare AWV, health professionals should also review any current opioid prescriptions, detect any cognitive impairment, and establish or update medical and family history. 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 [facility] - [place] wears hearing aides [facility] - regular exam Podiatry Dr Collins had appt 07/23/24 toes are now happy all the way up to ankles Health maintenance: See scanned preventative medicine assessment with personalized health plan and screening schedule. Mammogram declined Colonoscopy DEXA discussed today, will think about it Immunizations: Reports UTD flu and COVID vaccines; Flu today PAP - screened out AAA screen: NA EKG: offered and declined 09/02/24 lipid improved LDL, HDL is great, on garlique only cmp stable Visual Acuity: Eye exam UTD declined [facility] Hearing Screening: [place] wears hearing aides ACP: does not have hcp/molst or ACP Dietary/Nutrition/Exercise Edu provided: Y Problem: NAFISA - had intake session for counseling; will est care w/ a therapist. Cont to have ups and downs in regards to her anxiety. Recommendations for lexapro 10mg along w/ increase in buspirone from 7.5mg bid to 10mg bid. She is having a hard time splitting the 5mg tabs of the buspirone. Waking in the middle of the night. Unable to sleep. On clonidine 0.1 mg taking in the morning. Exam: awake alert oriented MMM Mildly Anxious,appropriate BLE w/o edema, skin intact, + PP Right facial droop only affecting upper cont -baseline Plan: increase buspar to 10mg bid (2x5mg) and take clonidine 0.1mg at bedtime to help sleep. RTO 6 weeks to fu on the above changes, sooner PRN Otherwise cont all meds, care w/ [facility] of care. During the course of the visit the patient was educated and counseled about appropriate screening and preventative services. Patient instructions were provided to the patient in written or electronic format. I have reviewed and verified the above information. An additional 20 was spent addressing the problem(s) noted at todays visit. This includes time spent before the visit reviewing the chart, time spent during the visit, and time spent after the visit on documentation This note is constructed using voice recognition software. While every effort has been made to ensure accuracy in cylinder batcher, still errors may have been included Sometimes, these errors may affect the content or meaning of the given sentence . [facility] Medical History (Updated 09/09/24 @ 13:35 by DUC Hernandez-RAMAN) Hyponatremia Scalp cyst Decreased hearing Surgical History No pertinent past surgical history Family History Father No problems noted. Mother No problems noted. Brother No problems noted. Social History (Updated 01/11/24 @ 10:40 by Claudia Mosley [facility]) Household Members: Other Household Members Other:: Cat Both parents involved: No Caregiver staying overnight: No Housing: House Are you a primary primary care nurse practitioner to a significant other at home: No Do you presently have visiting nurse or other home services: No 75 years or older and lives alone: Yes Alcohol intake: current Alcohol intake frequency: holidays/special occasions only Patient Tobacco Use Status: Never used Tobacco e-Cigarette/Vaping Use: Never Used service: No Current occupational status: retired Cognitive needs: No Hearing needs: No Vision needs: No Questionnaire Medicare Wellness Checkup What gender do you identify with?: female During the past 4 weeks, how much have you been bothered by emotional problems such as feeling anxious, depressed, irritable, sad or downhearted, and blue?: not at all During the past 4 weeks, has your physical & emotional health limited your social activities with family, friends, neighbors, or groups?: not at all During the past 4 weeks, how much bodily pain have you generally had?: no pain During the past 4 weeks, was someone available to help you if you needed & wanted help?: yes, as much as I wanted During the past 4 weeks, what was the hardest physical activity you could do for at least 2 minutes?: moderate Can you get to places out of walking distance without help? (For eg., can you travel alone on buses, taxis or drive your car?): Yes Can you go shopping for groceries or clothes without someone's help?: Yes Can you prepare your own meals?: Yes Can you do your housework without help?: Yes Because of any health problems, do you need the help of another person with your personal care needs such as eating, bathing, dressing or getting around the house?: No Can you handle your own money without help?: Yes During the past 4 weeks, how would you rate your health in general?: very good During the past 4 weeks how have things been going for you?: pretty well Are you having difficulties driving your car?: no Do you always fasten your seat belt when you are in a car?: yes, usually During past 4 weeks, have you been bothered by the following: never: Falling or dizzy when standing up, Sexual problems?, Trouble eating well?, Teeth or denture problems?, Problems using the telephone? and Tiredness or fatigue? Have you fallen 2 or more times in the past year?: No Are you afraid of falling?: No Are you a smoker?: no During the past 4 weeks, how many drinks of wine, beer, or other alcoholic beverages did you have?: no alcohol at all Do you exercise for about 20 minutes 3 or more times a week?: yes, some of the time Have you been given information to help with the following?: no: Hazards in your house that might hurt you? How often do you have trouble taking medicines the way you have been told to take them?: I always take medicine as prescribed How confident are you that you can control & manage most of your health problems?: very confident What is your race?: White Activity of Daily Living Bathing - sponge bath, tub bath or shower: receives no assistance (gets in/out by self, if usual bathing means Dressing - getting clothes from closets & drawers, including inner/outer garments & fasteners.: gets clothes & gets completely dressed without help Toileting - going to the 'toilet room' for urine/bowel elimination & cleaning self/arranging clothes: goes to toilet room, cleans self, arranges clothes without help Transfer: moves in & out of bed and chair without help (may use support object) Continence: controls urination/bowel movements completely by self Feeding: feeds self without help Total Score: 0 Information obtained from: patient Using telephone: independent Traveling: independent Shopping: independent Preparing meals: independent Housework: independent Taking medicine: independent Managing money: independent PHQ-9 Over the last 2 weeks, how often have you been bothered by any of the following problems? 1. Little interest or pleasure in doing things: not at all 2. Feeling down, depressed, or hopeless: not at all 3. Trouble falling or staying asleep, or sleeping too much: not at all 4. Feeling tired or having little energy: not at all 5. Poor appetite or overeating: not at all 6. Feeling bad about yourself - or that you are a failure or have let yourself or your family down: not at all 7. Trouble concentrating on things, such as reading the newspaper or watching television: not at all 8. Moving or speaking so slowly that other people could have noticed. Or the opposite - being so fidgety or restless that you have been moving around a lot more than usual: not at all 9. Thoughts that you would be better off or of hurting yourself in some way: not at all Total score: 0 Depression Screening Interpretation: Negative Depression Screening Done: Yes 45894 - PHQ-9 Billing: Yes Source: Developed by Drs. Abe Navarrete, Shonda Dillon, Aftab Stanford and colleagues, with an educational michael from [employer]. Physical Exam Vital Signs: Last Vital Signs Pulse 65 09/09/24 10:29 Resp 13 09/09/24 10:29 BP 114/62 09/09/24 11:16 Pulse Ox 98 09/09/24 10:29 Oxygen Delivery Method Room Air 09/09/24 10:29 BMI result Body Mass Index 16.5 Office Procedures Hearing Screen Left Overall Hearing Screening Results: Pass 73339 - Screening Test, pure tone, air only Flu Questionnaire Does the patient have a severe egg allergy?: No Does the patient have severe life threatening allergies?: No Does the patient have a fever or illness today?: No Has the patient ever had Guillain-Dalton Syndrome?: No Has the patient ever had any past reaction to a flu shot?: No Immunizations Fluarix Triv [id number] (PF) 45 mcg (15 mcg x 3)/0.5 mL IM syringe [facility] Performing Location: [facility] [place] Family Medicine Administered by: Marilee Yi RN on 09/09/24 10:43 Dose Route Admin Location Dispensed Lot Number Expiration Date [facility] [employer] 0.5 mL IM Left Deltoid 0.5 mL [id number] 05/22/25 [id number] [employer] VIS Given Date VIS Provided VIS Publication Date 09/09/24 Single Vaccine 21 Eligibility Eligibility Date Funding Source Not [facility] Eligible 09/09/24 Private Assessment & Plan Assessment & Plan (1) Encounter for subsequent annual wellness visit (AWV) in Medicare patient: Code(s): Z00.00 - Encounter for general adult medical examination without abnormal findings Plan: . 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 (3) Hearing loss: Code(s): H91.90 - Unspecified hearing loss, unspecified ear Qualifiers: Hearing loss type: sensorineural Laterality: bilateral Qualified Code(s): H90.3 - Sensorineural hearing loss, bilateral Plan: . (4) Dyslipidemia, goal LDL below 100: Code(s): E78.5 - Hyperlipidemia, unspecified Plan: . (5) NAFISA (generalized anxiety disorder): Comment: chronic, on BB and Clonidine for BP and Anxiety. Plan: Referred to counseling and increase BuSpar Code(s): F41.1 - Generalized anxiety disorder Plan: . (6) Hypertension: Comment: At goal on Norvasc 5 mg, lisinopril 20 mg q.a.m., metoprolol 75 mg q.a.m., clonidine 0.1 mg q.pm. Plan: Continue this medication regimen. Code(s): I10 - Essential (primary) hypertension Qualifiers: Hypertension type: essential hypertension Qualified Code(s): I10 - Essential (primary) hypertension Plan: . (7) ACP (advance care planning): Code(s): Z71.89 - Other specified counseling Plan: . Orders: Orders Influenza [id number] Immunization Today Z23 - Encounter for immunization Medications: Changed From clonidine HCl 0.1 mg PO DAILY 3 months 90 tabs 1RF To clonidine HCl 0.1 mg PO BEDTIME 3 months 90 tabs 1RF From buspirone 7.5 mg (1.5 x 5 mg) PO BID 90 days 270 tabs 1RF To buspirone 10 mg (2 x 5 mg) PO BID 90 days 360 tabs 1RF Refilled lisinopril 20 mg PO DAILY 90 tabs 0RF metoprolol succinate ER 75 mg (3 x 25 mg) PO ONCE 270 tabs 0RF Patient Instructions: increase buspar to 10mg bid (2x5mg) and take clonidine 0.1mg at bedtime to help sleep. come back and see me in 6 weeks for follow up on the above Health screenings for women You should visit your health care provider from time to time, even if you are healthy. The purpose of these visits is to: Screen for medical issues Assess your risk for future medical problems Encourage a healthy lifestyle Update vaccinations and other preventive care services Help you get to know your provider in case of an illness Information Even if you feel fine, you should still see your provider for regular checkups. These visits can help you avoid problems in the future. For example, the only way to find out if you have high blood pressure is to have it checked regularly. High blood sugar and high cholesterol levels also may not have any symptoms in the early stages. A simple blood test can check for these conditions. There are specific times when you should see your provider or receive specific health screenings. The [place] Preventive Services Task Force publishes a list of recommended screenings. Below are screening guidelines for women ages 18 to 39. BLOOD PRESSURE SCREENING Your blood pressure should be checked at least once every 3 to 5 years if: Your blood pressure is in the normal range (top number less than 120 mm Hg and bottom number less than 80 mm Hg) You don't have risk factors for high blood pressure Ask your provider if you need your blood pressure checked more often if: The top number is 120 to 129 mm Hg or the bottom number is 70 to 79 mm Hg You have diabetes, heart disease, kidney problems, are overweight, or have certain other health conditions You have a first-degree relative with high blood pressure You are Black You had high blood pressure during a If the top number is 130 mm Hg or greater or the bottom number is 80 mm Hg or greater, this is considered stage 1 hypertension. Schedule an appointment with your provider to learn how you can reduce your blood pressure. Watch for blood pressure screenings in your area. Ask your provider if you can stop in to have your blood pressure checked. BREAST CANCER SCREENING Experts do not agree about the benefits of breast self-exams in finding breast cancer or saving lives. Talk to your provider about what is best for you. A screening mammogram is not recommended for most women under age 40. Your provider may discuss and recommend mammograms, MRI scans, or ultrasounds if you have an increased risk for breast cancer, such as: A mother or sister who had breast cancer at a young age (most often starting screening earlier than the age the close relative was diagnosed) You carry a high-risk genetic marker CERVICAL CANCER SCREENING Cervical cancer screening should start at age 21 years unless your provider advises otherwise. After the first test: Women ages 21 through 29 should have a Pap test every 3 years. Exoprts do not agree on whether HPV testing is recommended for this age group. Women ages 30 through 65 should be screened with either a Pap test every 3 years or the HPV test every 5 years or both tests every 5 years (called cotesting ). Women who have been treated for precancer (cervical dysplasia) should continue to have Pap tests for 20 years after treatment or until age 65, whichever is longer. If you have had your uterus and cervix removed (total hysterectomy), and you have not been diagnosed with cervical cancer or precancer (high grade cervical neoplasia), you do not need cervical cancer screening. CHOLESTEROL SCREENING Cholesterol screening should begin at: Age 45 for women with no known risk factors for coronary heart disease Age 20 for women with known risk factors for coronary heart disease Repeat cholesterol screening should take place: Every 5 years for women with normal cholesterol levels More often if changes occur in lifestyle (including weight gain and diet) More often if you have diabetes, heart disease, kidney problems, or certain other conditions DIABETES SCREENING You should be screened for diabetes starting at age 35 and then repeated every 3 years if you have no risk factors for diabetes. Screening may need to start earlier and be repeated more often if you have other risk factors for diabetes, such as: You have a first degree relative with diabetes. You are overweight or have obesity. You have high blood pressure, prediabetes, or a history of heart disease. Screening for diabetes should be done if you are planning to become and you are overweight and have other risk factors such as high blood pressure. DENTAL EXAM Go to the dentist once or twice every year for an exam and cleaning. Your dentist will evaluate if you need more frequent visits. EYE EXAM Have an eye exam every 5 to 10 years before age 40. If you have vision problems, have an eye exam every 2 years or more often if recommended by your provider. You should have an eye exam that includes an examination of your retina (back of your eye) at least every year if you have diabetes. IMMUNIZATIONS Commonly needed vaccines include: Flu shot: get one every year. COVID-19 vaccine: ask your provider what is best for you. Tetanus-diphtheria and acellular pertussis (Tdap) vaccine: have one at or after age 19 as one of your tetanus-diphtheria vaccines if you did not receive it as an adolescent. Tetanus-diphtheria: have a booster (or Tdap) every 10 years. Varicella vaccine: receive 2 doses if you never had chickenpox or the varicella vaccine. Hepatitis B vaccine: receive 2, 3, or 4 doses, depending on your exact circumstances. Measles, mumps, and rubella (MMR) vaccine: receive 1 to 2 doses if you are not already immune to MMR. Your provider can tell you if you are immune. Ask your provider about the human papillomavirus (HPV) vaccine if: You have not received the HPV vaccine in the past You have not completed the full vaccine series (you should catch up on this shot) Ask your provider if you should receive other immunizations if you have certain health problems that increase your risk for some diseases such as pneumonia. INFECTIOUS DISEASE SCREENING Women who are sexually active should be screened for chlamydia and gonorrhea up until age 25. Women 25 years and older should be screened for chlamydia and gonorrhea if at high risk. Screening for hepatitis C: All adults ages 18 to 79 should get a one-time test for hepatitis C. people should be screened at every . Screening for human immunodeficiency virus (HIV): All people ages 15 to 65 should get a one-time test for HIV. Depending on your lifestyle and medical history, you may also need to be screened for infections such as syphilis and HIV, as well as other infections. PHYSICAL EXAM All adults should visit their provider from time to time, even if they are healthy. The purpose of these visits is to: Screen for disease Assess your risk of future medical problems Encourage a healthy lifestyle Update your vaccinations and other preventive care services Maintain a relationship with a provider in case of an illness Your height, weight, and BMI should be checked at every exam. During your exam, your provider may ask you about: Depression and anxiety Diet and exercise Alcohol and tobacco use Safety issues, such as using seat belts, smoke detectors, and intimate partner violence Your medicines and risk for interactions SKIN SELF-EXAM Your provider may check your skin for signs of skin cancer, especially if you're at high risk, such as if you: Have had skin cancer before Have close relatives with skin cancer Have a weakened immune system OTHER SCREENING Talk with your provider about colon cancer screening if you have a strong family history of colon cancer or polyps, or if you have had inflammatory bowel disease or polyps yourself. Routine bone density screening of women under 40 is not recommended. Quality Reporting (2019) Adult ([facility] 138/01/14/69) Smoking risk assessment performed?: Yes Patient Tobacco Use Status: Never used Tobacco Depression screening performed: Yes Screen Results: Yes Negative screen Recommended changes not done: EKG Patient refused: Yes Systolic BP not done?: No Diastolic BP not done?: No BMI screening not done: No Sexual Activity Screening ([facility] 153) Sexually active?: No Immunizations ([facility] 147, 117) Annual Influenza Vaccine: Yes Measles Antibody Test: No Mumps Antibody Test: No Rubella Antibody Test: No Varicella Antibody Test: No Anti Hepatitis A IgG Antigen test: No Anti Hepatitis B Virus Surface Ab test: No Fall Risk Screening ([facility] 139) Last assessed Fall Risk: 09/09/24 Fall risk assessment: No Falls in past year Dementia Assessment ([facility] 149) Cognitive assessment recorded: Yes (6 CIT wnl ) Assessment of cognition with standardized tool: Yes Depression/Bipolar (159/160/161/177) PHQ-9: Total score: 0 Ophthalmol:Cataracts Visual Acuity (133) Visual acuity exam performed: No Coding Level of Care Code Medicare Subsequent (G0439) Est Pt Level 3 (45579) Diagnoses Encounter for subsequent annual wellness visit (AWV) in Medicare patient Z00.00 Facial asymmetry Q67.0 Sensorineural hearing loss (SNHL) of both ears H90.3 Hearing loss type: sensorineural Laterality: bilateral Dyslipidemia, goal LDL below 100 E78.5 NAFISA (generalized anxiety disorder) F41.1 Essential hypertension I10 Hypertension type: essential hypertension ACP (advance care planning) Z71.89 CPT Codes Advance Care Planning - Time spent: 1-15 minutes, not on file ([id number]) Coding - Hearing Test Screenin - Screening Test, pure tone, air only ([id number]) Advance Care Planning Advance Care Planning discussion: Exists, not on file Date of discussion: 09/09/24 Who was present: self given blank hector if hcp molst and 5 wishes today has a living will at home Forms completed: Health Care Proxy, MOLST and Living will Time spent: 1-15 minutes, not on file Actual minutes spent: 6
[2024-09-09 10:29] VITALS: BP 112/68; PULSE 65; RESP 13; O2SAT 98; BMI 16.5
[2024-09-09 11:16] VITALS: BP 114/62
== END 2024-09-09 11:32 | disposition home or self-care (01) ==
PROVIDERS: PCP Nurse Practitioner Family; Visit Provider Nurse Practitioner Family
DX: Z00.00 Encounter for general adult medical examination without abnormal findings (principal); H90.3 Sensorineural hearing loss, bilateral; Q67.0 Congenital facial asymmetry; E78.5 Hyperlipidemia, unspecified; F41.1 Generalized anxiety disorder; I10 Essential (primary) hypertension; Z71.89 Other specified counseling; Z23 Encounter for immunization

== ENCOUNTER → 2024-09-09 10:20 | Outpatient (BNVA) | payer MEDICARE, SELFPAY | PROVIDERS: PCP Nurse Practitioner Family; Visit Provider Nurse Practitioner Family | DX: Z00.00 Encounter for general adult medical examination without abnormal findings (principal); H90.3 Sensorineural hearing loss, bilateral; E78.5 Hyperlipidemia, unspecified; F41.1 Generalized anxiety disorder; I10 Essential (primary) hypertension; Q67.0 Congenital facial asymmetry; Z79.899 Other long term (current) drug therapy; Z71.89 Other specified counseling; Z23 Encounter for immunization | CPT/HCPCS: 90471; 90656; 96127; 99212 ==

== ENCOUNTER 2024-09-29 11:02 | Outpatient (REF) | payer SELFPAY | END 2024-09-29 11:03 | disposition home or self-care (01) | LOC: HO.HAP 11:02 | PROVIDERS: Visit Provider Nurse Practitioner Family | DX: Z46.1 Encounter for fitting and adjustment of hearing aid (principal); H90.A32 Mixed conductive and sensorineural hearing loss, unilateral, left ear with restricted hearing on the contralateral side; H90.A21 Sensorineural hearing loss, unilateral, right ear, with restricted hearing on the contralateral side | CPT/HCPCS: V5266 ==

== ENCOUNTER 2024-10-12 10:22 | Outpatient (AMB) | payer MEDICARE, SELFPAY ==
--- NOTE | 2024-10-12 10:42 | MHC.PC.OV ---
Vital Signs 10/12/24 10:49 10/12/24 11:19 Height 5 ft 6 in Weight 100 lb 8 oz BMI 16.2 BP 142/75 H 122/66 Blood Pressure Location Lt brachial Lt brachial Position Sitting Sitting Respiration 16 Pulse 78 Pulse Source Pulse Oximeter Temp 96.4 F L Temp Source Temporal Artery Scan Pulse Oximetry (%) 100 Oxygen Delivery Method Room Air Intake Visit Reasons: fu med change for anx/insomnia Intake Note: patient here for follow up on med change for anxiety/ insomnia Migration Agent Required: No Is last menstrual period known: No Post menopausal: No Patient : No Allergies No Known Allergies [No Known Allergies*] Allergy (Verified 10/12/24 11:07) Medication List - Last Reconciled 10/12/24 by DUC Hernandez- amlodipine (Norvasc) 5 mg PO .DAILY AT BEDTIME buspirone 10 mg (2 x 5 mg) PO BID 90 days clonidine HCl 0.1 mg PO BEDTIME 3 months lisinopril 20 mg PO DAILY metoprolol succinate ER 75 mg (3 x 25 mg) PO ONCE Tobacco use date assessed: 10/12/24 Fall risk assessment: No Falls in past year Last assessed Fall Risk: 10/12/24 Dental Screening Dental Screen Date: 10/12/24 Did you have a dental visit in the last 12 months?: Yes Did you have a dental problem in the last 6 months where you did not have access to dental care?: No Was dental information given to patient?: Patient has dentist HPI HPI Comments History of Present Illness Details History of Present Illness The patient is a 74-year-old female presenting with f/u of insomnia & NAFISA after increase in Buspar to 10mg BID, she was also advised to start taking Clonidine at HS. Upon intake, BP was elevated, she expressed concern about the variability of her blood pressure and its potential connection to her anxiety and insomnia. Taking all meds as directed. Regarding insomnia, the patient stated that, despite taking clonidine at 6 PM, she falls asleep around 10 or 11 PM but wakes between midnight and 3 AM, unable to return to sleep, averaging four hours of sleep per night. She reports exhaustion as a result. For her anxiety, she noted that increasing buspirone to 10 mg twice per day provided slight improvement but expressed concern about the increase in cost from $10 for a 90-day supply to $30. Despite anxiety generally persisting, she felt somewhat calmer. The patient's medication history includes clonidine for hypertension and insomnia, and buspirone for anxiety, which was recently increased to 2 pills twice per day due to previous issues with insurance denial for single-dose adjustments. Review of Systems - Cardiovascular: Reports elevated blood pressure. - Neurologic: Reports insomnia, averaging 4 hours of sleep per night. - Psychiatric: Reports anxiety, with slight improvement noted on increased buspirone dosage. Physical Exam Awake alert NAD RRR, Blood pressure recheck 122/66 mmHg. LS CTAB No edema BLE Anxious, appropriate Plan 1. Anxiety: - Increase buspirone dosage to 15 mg twice per day. Monitor response and adjust based on efficacy and patient's insurance coverage for medication costs. Advise seeking alternative pharmacies for potential cost savings. 2. Insomnia: - Adjust the timing of clonidine administration to closer to bedtime for enhanced efficacy, possibly improving sleep duration. 3. Essential Hypertension: - Reevaluate blood pressure readings to ensure accuracy and management stability. Continue monitoring clinically. Patient was informed and verbally consented to the use of an ambient scribe for clinic note documentation during this visit. Discussion Notes During the visit, we discussed the variability in the patient's blood pressure readings and attributed some fluctuation to measurement inconsistencies. I reassured the patient about her current blood pressure control, supported by the reading taken during the visit. We discussed the change in administering clonidine to address her existing insomnia and how altering the timing might enhance its hypnotic effect. The discussion around anxiety management included an increase in buspirone dosage due to her partial improvement in anxiety symptoms. I advised the patient to assess the cost variations with different pharmacies and report any issues with high copayments or denials from her insurance. We will follow up post-holidays to reassess her clinical response to the medication adjustments. Patient Instructions - Continue monitoring blood pressure and report any significant changes or concerns. - Take clonidine closer to bedtime, around 9-10pm, to potentially improve sleep quality. - Increase buspirone to 15 mg twice daily and notify if any issues arise with insurance coverage or medication cost. - Consider consulting insurance about preferred pharmacy options to reduce medication expenses. - Schedule follow-up visit approximately six weeks post-holidays to evaluate treatment effects and adjust as necessary. Total time spent caring for the patient today was 40 minutes. This includes time spent before the visit reviewing the chart, time spent during the visit, and time spent after the visit on documentation [facility] Medical History (Updated 10/12/24 @ 12:13 by DINESH Hernandez) Hyponatremia Scalp cyst Decreased hearing Surgical History No pertinent past surgical history Family History Father No problems noted. Mother No problems noted. Brother No problems noted. Social History (Updated 01/11/24 @ 10:40 by Claudia Mosley [facility]) Household Members: Other Household Members Other:: Cat Both parents involved: No Caregiver staying overnight: No Housing: House Are you a primary memory care director to a significant other at home: No Do you presently have visiting nurse or other home services: No 75 years or older and lives alone: Yes Alcohol intake: current Alcohol intake frequency: holidays/special occasions only Patient Tobacco Use Status: Never used Tobacco e-Cigarette/Vaping Use: Never Used service: No Current occupational status: retired Current occupational exposures/hazards: No Cognitive needs: No Hearing needs: No Vision needs: No Questionnaire Thrive Questionnaire Date Thrive assessed: 12/28/23 NAFISA-7 AMB Questionnaire NAFISA-7 Date NAFISA - 7 assessed: 04/25/24 Source: Developed by Drs. Abe Navarrete, Shonda Dillon, Aftab Stanford and colleagues, with an educational michael from [employer]. Physical exam (Primary Care) Vital Signs: Last Vital Signs Temp 96.4 F L 10/12/24 10:49 Pulse 78 10/12/24 10:49 Resp 16 10/12/24 10:49 BP 122/66 10/12/24 11:19 Pulse Ox 100 10/12/24 10:49 Oxygen Delivery Method Room Air 10/12/24 10:49 BMI result Body Mass Index 16.2 Tobacco/Smoking Status: Tobacco use Status Tobacco use date assessed 10/12/24 10/12/24 10:53 Patient Tobacco Use Status Never used Tobacco 10/12/24 10:44 e-Cigarette/Vaping Use Never Used 10/12/24 10:44 Thrive Assessment: Date of Thrive Assessment Date Thrive assessed 12/28/23 10/12/24 10:44 Coding Level of Care Code Est Pt Level 5 (13606) Complex EM visit Add On G2211 Diagnoses NAFISA (generalized anxiety disorder) F41.1 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 Plan: Referred to counseling and increase BuSpar Code(s): F41.1 - Generalized anxiety disorder Category: Medical (2) Insomnia secondary to anxiety: Code(s): F41.9 - Anxiety disorder, unspecified; F51.05 - Insomnia due to other mental disorder Category: Medical (3) Hypertension: Comment: At goal on Norvasc 5 mg, lisinopril 20 mg q.a.m., metoprolol 75 mg q.a.m., clonidine 0.1 mg q.pm. Plan: Continue this medication regimen. Code(s): I10 - Essential (primary) hypertension Category: Medical Qualifiers: Hypertension type: essential hypertension Qualified Code(s): I10 - Essential (primary) hypertension Plan . Medications: New buspirone 15 mg PO BID 180 tabs 0RF 90 days Discontinued buspirone Discontinued Reason: Doctor's Order 10 mg (2 x 5 mg) PO BID 90 days 360 tabs 1RF Patient Instructions: Discussion Notes During the visit, we discussed the variability in the patient's blood pressure readings and attributed some fluctuation to measurement inconsistencies. I reassured the patient about her current blood pressure control, supported by the reading taken during the visit. We discussed the change in administering clonidine to address her existing insomnia and how altering the timing might enhance its hypnotic effect. The discussion around anxiety management included an increase in buspirone dosage due to her partial improvement in anxiety symptoms. I advised the patient to assess the cost variations with different pharmacies and report any issues with high copayments or denials from her insurance. We will follow up post-holidays to reassess her clinical response to the medication adjustments. Patient Instructions - Continue monitoring blood pressure and report any significant changes or concerns. - Take clonidine closer to bedtime to potentially improve sleep quality. - Increase buspirone to 15 mg twice daily and notify if any issues arise with insurance coverage or medication cost. - Consider consulting insurance about preferred pharmacy options to reduce medication expenses. - Schedule follow-up visit approximately six weeks post-holidays to evaluate treatment effects and adjust as necessary.
[2024-10-12 10:49] VITALS: BP 142/75; PULSE 78; RESP 16; TEMP 35.8; O2SAT 100; BMI 16.2
[2024-10-12 11:19] VITALS: BP 122/66
== END 2024-10-12 11:25 | disposition home or self-care (01) ==
PROVIDERS: PCP Nurse Practitioner Family; Visit Provider Nurse Practitioner Family
DX: I10 Essential (primary) hypertension (principal); F41.1 Generalized anxiety disorder; F51.05 Insomnia due to other mental disorder

== ENCOUNTER → 2024-10-12 10:22 | Outpatient (BNVA) | payer MEDICARE, SELFPAY | PROVIDERS: PCP Nurse Practitioner Family; Visit Provider Nurse Practitioner Family | DX: F41.1 Generalized anxiety disorder (principal); F51.05 Insomnia due to other mental disorder; I10 Essential (primary) hypertension | CPT/HCPCS: 99212 ==

== ENCOUNTER 2024-12-02 11:29 | Outpatient (REF) | payer SELFPAY | END 2024-12-02 11:30 | disposition home or self-care (01) | LOC: HO.HAP 11:29 | PROVIDERS: Visit Provider Nurse Practitioner Family | DX: Z46.1 Encounter for fitting and adjustment of hearing aid (principal); H90.A32 Mixed conductive and sensorineural hearing loss, unilateral, left ear with restricted hearing on the contralateral side; H90.A21 Sensorineural hearing loss, unilateral, right ear, with restricted hearing on the contralateral side | CPT/HCPCS: V5266 ==

== ENCOUNTER 2024-12-06 10:11 | Outpatient (AMB) | payer MEDICARE, SELFPAY ==
--- NOTE | 2024-12-06 10:15 | MHC.PC.OV ---
Vital Signs 12/06/24 10:20 Height 5 ft 6 in Weight 103 lb 4 oz BMI 16.7 BP 124/70 Blood Pressure Location Rt brachial Position Sitting Respiration 12 Pulse 68 Pulse Source Pulse Oximeter Pulse Oximetry (%) 99 Oxygen Delivery Method Room Air Intake Visit Reasons: FU NAFISA/INSOMNIA/HTN Intake Note: follow up on htn Professional Fee Coder Required: No Allergies No Known Allergies [No Known Allergies*] Allergy (Verified 12/06/24 10:16) Medication List - Last Reconciled 12/06/24 by RUIZ HernandezP- amlodipine (Norvasc) 5 mg PO .DAILY AT BEDTIME buspirone 15 mg PO BID 90 days clonidine HCl 0.1 mg PO BEDTIME 3 months lisinopril 20 mg PO DAILY metoprolol succinate ER 75 mg (3 x 25 mg) PO ONCE Tobacco use date assessed: 10/12/24 Dental Screening Dental Screen Date: 10/12/24 HPI HPI Comments History of Present Illness Details 74-year-old female with hypertension, anxiety, hyponatremia, hypothyroidism, hard of hearing, Status post bilat cataract extraction (2020), onychomycosis [facility] wears hearing aides [facility] - regular exam Podiatry Dr Collins had appt 07/23/24 toes are now happy all the way up to ankles Health maintenance: See scanned preventative medicine assessment with personalized health plan and screening schedule. Mammogram declined Colonoscopy DEXA discussed today, will think about it Immunizations: UTD PAP - screened out AAA screen: NA EKG: offered and declined History of Present Illness The patient is a 74-year-old female presenting with follow-up for hypertension, anxiety, and insomnia. She has a history of essential hypertension and generalized anxiety disorder, for which her buspirone dosage was increased to 15 mg twice daily at the last visit. Additionally, she was advised to take clonidine closer to bedtime to enhance sleep quality, as she experienced sleep interruptions around 2 to 3 AM. The patient reports her blood pressure is well-controlled, with recent readings showing 124/70 mmHg. Her sleep pattern remains disrupted, occasionally waking up around 1:00 or 2:00 AM, but she notes an improvement in the ability to fall back asleep after taking medication around 11pm. The patient admits to sporadically missing clonidine doses due to sleep; only 2 doses. Regarding anxiety management, she perceives slight improvement with increased buspirone, although she occasionally experiences anxiety in response to specific circumstances. 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 She also practices spiritual readings to aid relaxation, particularly when insomnia occurs. 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 - Practices spiritual readings as a method of coping with anxiety and aiding sleep. - Active in community activities, specifically reading and writing reflections for residents at the soldier's home. Physical Exam Awake alert NAD RRR, LS CTAB No edema BLE Anxious, appropriate Discussion Notes The patient and I discussed continuation of her current medication regimen, particularly focusing on the optimization of clonidine dosage timing to enhance sleep quality. We reviewed her positive steps towards managing anxiety, including spiritual practices and social engagement, which contribute positively to her mental health. It was discussed that medications are providing mild symptom improvement, and the balance of medications will continue. We agreed on refilling necessary prescriptions and ensuring that alignments with her lifestyle continue to support her overall well-being. The patient was advised to ensure safety during her appointments by keeping the weather condition in mind and rescheduling if necessary. We agreed to reconvene in approximately two and a half months for further evaluation. Patient was informed and verbally consented to the use of an ambient scribe for clinic note documentation during this visit. Patient Instructions - Immunization record and letter of clearance to work given today - Continue taking your medications as prescribed, particularly maintaining the current buspirone dosage. - Continue engaging in volunteer work and spiritual readings as they appear beneficial. - Prioritize your safety and reschedule appointments if the weather is hazardous. - Your next follow-up is in 2.5 months; have labs done a week prior to your visit. - Ensure prescriptions for your medications are filled adequately in advance. This note is constructed using voice recognition software. While every effort has been made to ensure accuracy in keel press operator, still errors may have been included Sometimes, these errors may affect the content or meaning of the given sentence . Total time spent caring for the patient today was 45 minutes. This includes time spent before the visit reviewing the chart, time spent during the visit, and time spent after the visit on documentation PFSH Medical History (Updated 12/06/24 @ 15:57 by DINESH Hernandez) Hyponatremia Scalp cyst Decreased hearing Surgical History No pertinent past surgical history Family History Father No problems noted. Mother No problems noted. Brother No problems noted. Social History (Updated 01/11/24 @ 10:40 by Claudia Mosley [facility]) Household Members: Other Household Members Other:: Cat Both parents involved: No Caregiver staying overnight: No Housing: House Are you a primary hospice spiritual care coordinator to a significant other at home: No Do you presently have visiting nurse or other home services: No 75 years or older and lives alone: Yes Alcohol intake: current Alcohol intake frequency: holidays/special occasions only Patient Tobacco Use Status: Never used Tobacco e-Cigarette/Vaping Use: Never Used service: No Current occupational status: retired Current occupational exposures/hazards: No Cognitive needs: No Hearing needs: No Vision needs: No Questionnaire PHQ-9 Over the last 2 weeks, how often have you been bothered by any of the following problems? 84558 - PHQ-9 Billing: Patient declined-do not bill Source: Developed by Drs. Abe Navarrete, Shonda Dillon, Aftab Stanford and colleagues, with an educational michael from [employer] Thrive Questionnaire Date Thrive assessed: 12/28/23 I am a: Parent/Caregiver What is your living situation today?: I have a steady place to live Within the past 12 months, did the food you bought not last and you didn't have the money to get more?: Never true Within the past 12 months, did you worry whether your food would run out before you got money to buy more?: Never true Do you have trouble paying for medicines?: No Do you have trouble getting transportation to medical appointments?: No Do you have trouble paying your heating and electricity bill?: No Do you have trouble taking care of your child, family member or friend?: No Do you have trouble with day-to-day activities such as bathing, preparing meals, shopping, managing finances, etc.?: No Are you currently unemployed and looking for a job?: No Are you interested in more education?: No Please select the resources that you would like help with: None Currently or been in a relationship where the following occur: No concerns reported THRIVE Score: 0 AUDIT C Alcohol Use Questionnaire (AUDIT-C) 1. How often do you have a drink containing alcohol?: Never 3. How often do you have six or more drinks on one occasion?: Never Total Score: 0 Score Reviewed/Action Taken: Yes NAFISA-7 AMB Questionnaire NAFISA-7 Date NAFISA - 7 assessed: 12/06/24 Feeling nervous, anxious, or on edge: 1 = Several days Not being able to stop or control worryin = Not at all Worrying too much about different things: 3 = Nearly every day Trouble relaxin = Not at all Being so restless that it is hard to sit still: 0 = Not at all Becoming easily annoyed or irritable: 1 = Several days Feeling afraid as if something awful might happen: 1 = Several days Total NAFISA-7 score (0-4 normal; 5-9 mild; 10-14 moderate; 15-21 severe): 6 Source: Developed by Drs. Abe Navarrete, Shonda Dillon, Aftab Stanford and colleagues, with an educational michael from [employer] NAFISA-7 Assessment Billing NAFISA-7 Assessment Tool: NAFISA-7 Assessment 93463 Physical exam (Primary Care) Vital Signs: Last Vital Signs Pulse 68 12/06/24 10:20 Resp 12 12/06/24 10:20 BP 124/70 12/06/24 10:20 Pulse Ox 99 12/06/24 10:20 Oxygen Delivery Method Room Air 12/06/24 10:20 BMI result Body Mass Index 16.7 Tobacco/Smoking Status: Tobacco use Status Tobacco use date assessed 10/12/24 12/06/24 10:18 Patient Tobacco Use Status Never used Tobacco 12/06/24 10:18 e-Cigarette/Vaping Use Never Used 12/06/24 10:18 Thrive Assessment: Date of Thrive Assessment Date Thrive assessed 12/28/23 12/06/24 10:18 Currently or been in a relationship where the following occur: No concerns reported Coding Level of Care Code Est Pt Level 5 (23549) Complex EM visit Add On G2211 Diagnoses NAFISA (generalized anxiety disorder) F41.1 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 Plan: counseling and cont BuSpar Code(s): F41.1 - Generalized anxiety disorder Category: Medical (2) Insomnia secondary to anxiety: Code(s): F41.9 - Anxiety disorder, unspecified; F51.05 - Insomnia due to other mental disorder Category: Medical (3) Hypertension: Comment: At goal on Norvasc 5 mg, lisinopril 20 mg q.a.m., metoprolol 75 mg q.a.m., clonidine 0.1 mg q.pm. Plan: Continue this medication regimen. Code(s): I10 - Essential (primary) hypertension Category: Medical Qualifiers: Hypertension type: essential hypertension Qualified Code(s): I10 - Essential (primary) hypertension Plan . Orders: Orders Comprehensive Lucas. Panel Fast 2 Months E78.5 - Hyperlipidemia, unspecified, I10 - Essential (primary) hypertension Lipid Panel 2 Months E78.5 - Hyperlipidemia, unspecified, I10 - Essential (primary) hypertension Medications: Refilled buspirone 15 mg PO BID 90 days 180 tabs 0RF metoprolol succinate ER 75 mg (3 x 25 mg) PO ONCE 270 tabs 0RF clonidine HCl 0.1 mg PO BEDTIME 3 months 90 tabs 1RF lisinopril 20 mg PO DAILY 90 tabs 0RF
[2024-12-06 10:20] VITALS: BP 124/70; PULSE 68; RESP 12; O2SAT 99; BMI 16.7
== END 2024-12-06 11:11 | disposition home or self-care (01) ==
PROVIDERS: PCP Nurse Practitioner Family; Visit Provider Nurse Practitioner Family
DX: F41.1 Generalized anxiety disorder (principal); F41.9 Anxiety disorder, unspecified; F51.05 Insomnia due to other mental disorder; I10 Essential (primary) hypertension

== ENCOUNTER → 2024-12-06 10:11 | Outpatient (BNVA) | payer MEDICARE, SELFPAY | PROVIDERS: PCP Nurse Practitioner Family; Visit Provider Nurse Practitioner Family | DX: I10 Essential (primary) hypertension (principal); F41.9 Anxiety disorder, unspecified; E03.9 Hypothyroidism, unspecified; F41.1 Generalized anxiety disorder; F51.05 Insomnia due to other mental disorder; E78.5 Hyperlipidemia, unspecified | CPT/HCPCS: 96127; 99212 ==

== ENCOUNTER 2025-01-30 09:29 | Outpatient (REF) | payer MEDICARE, SELFPAY ==
[2025-01-30 10:41] LABS: Alanine Aminotransferase 18 U/L (0-31); Albumin Level 4.1 g/dL (3.5-5.0); Alkaline Phosphatase 65 U/L (39-117); Anion Gap 11 (12-20); Aspartate Amino Transferase 30 U/L (5-31); Bilirubin Total 1.2 mg/dL (0.0-1.0); Blood Urea Nitrogen 19 mg/dL (9-16); Calcium 9.2 mg/dL (8.4-10.2); Carbon Dioxide 26 mmol/L (22-29); Chloride 108 mmol/L (96-108); Cholesterol 193 mg/dL (<200); Estimated Glomerular Filt Rate > 60; Glucose Fasting 90 mg/dL (60-99); HDL Cholesterol 69 mg/dL (>40); LDL Cholesterol Calculated 111 mg/dL (<100); Potassium 4.5 mmol/L (3.3-5.1); Sodium 140 mmol/L (135-145); Total Protein 7.1 g/dL (6.5-8.0); Triglycerides 67 mg/dL (<150)
== END 2025-01-30 09:30 | disposition home or self-care (01) ==
LOC: HO.10HDL 09:29
PROVIDERS: Visit Provider Nurse Practitioner Family
DX: E78.5 Hyperlipidemia, unspecified (principal); I10 Essential (primary) hypertension
CPT/HCPCS: 36415; 80053; 80061

== ENCOUNTER 2025-02-06 13:04 | Outpatient (AMB) | payer MEDICARE, SELFPAY ==
--- NOTE | 2025-02-06 13:24 | A.OFFPC_ITS ---
Vital Signs 02/06/25 13:29 02/06/25 13:57 Height 5 ft 6 in Weight 99 lb 8 oz BMI 16.1 BP 142/78 H 112/60 Blood Pressure Location Lt brachial Lt brachial Position Sitting Sitting Respiration 13 Pulse 82 Pulse Source Pulse Oximeter Temp 96.9 F Temp Source Oral Pulse Oximetry (%) 99 Oxygen Delivery Method Room Air Intake Visit Reasons: January/February 30 min routine fu labs 1 week before Intake Note: follow up to review labs. patient is concern with htn Health Care Sanitary Technician Required: No Allergies No Known Allergies [No Known Allergies*] Allergy (Verified 02/06/25 13:43) Medication List - Last Reconciled 02/06/25 by DUC Hernandez- amlodipine (Norvasc) 5 mg PO .DAILY AT BEDTIME buspirone 15 mg PO BID 90 days clonidine HCl 0.1 mg PO BEDTIME 3 months lisinopril 20 mg PO DAILY metoprolol succinate ER 75 mg (3 x 25 mg) PO ONCE Tobacco use date assessed: 02/06/25 Dental Screening Dental Screen Date: 02/06/25 Did you have a dental visit in the last 12 months?: Yes Did you have a dental problem in the last 6 months where you did not have access to dental care?: No Was dental information given to patient?: Patient has dentist HPI HPI Comments History of Present Illness Details 74-year-old female with hypertension, an xiety, hard of hearing, Status post bilat cataract extraction (2020), onychomycosis 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 Mammogram declined Colonoscopy DEXA discussed today, will think about it Immunizations: UTD PAP - screened out AAA screen: NA EKG: offered and declined History of Present Illness - The patient is a 74-year-old female pr esenting with a follow-up for hypertension. - Hypertension management includes amlod ipine, clonidine, lisinopril, metoprolol - Manages anxiety with buspirone and gen nidine, experiencing increased stress recently. - Continues to experience insomnia, with partial relief using clonidine. - Hyperlipidemia management shows improv ed LDL and total cholesterol levels, taking Garlique + trending in LDL - Reports unintentional weight loss, con sidering increased stress and activity levels as potential factors. - Experiencing significant stress relati ng to personal responsibilities and living conditions. Physical Exam Awake alert NAD RRR, LS CTAB No edema BLE Anxious, appropriate results 01/30/25 LDL improved, bili elevated but improved otherwise normal labs Discussion Notes During the visit, I discussed the patient's current medication regimen for hypertension and anxiety, emphasizing the importance of consistent medication intake. The patient expressed concern regarding recent unintentional weight loss and insomnia. We talked about introducing mirtazapine to manage anxiety-induced weight loss and improve sleep. I explained that mirtazapine is safe, promotes sleep, and may help restore appetite, enhancing overall mood. Risks, benefits, and the cost?which is minimal due to its availability as a generic?were reviewed. The patient consented to initiate this medication. Follow-up was recommended in six weeks to evaluate response and adjust treatment if necessary. Assessment and Plan 1. Essential Hypertension: The patient r emains on antihypertensive regimen with recent lower readings observed, possibly related to weight changes. Current management will be continued with close monitoring. 2. Generalized Anxiety Disorder: Increas ed stress reported, addition of mirtazapine is planned to assist with weight loss, sleep, and mood management. 3. Insomnia: Improvement noted with clon idine timing. Initiation of mirtazapine commenced to further support improved sleep patterns. 4. Hyperlipidemia: Notable improvement i n cholesterol levels. Continuation of current regimen recommended as lipid profile is trending positively. 5. Weight Loss (Unintentional): Incorpor ation of mirtazapine aimed at stimulating appetite and addressing anxiety-related weight loss. 6. Stress: Various stressors identified. Referral for additional counseling support has been prioritized. Patient Instructions - Take mirtazapine as prescribed at bedt laila for sleep improvement and appetite stimulation. - Continue with the current hypertension and anxiety medications. - Monitor blood pressure at home and rep ort any significant changes. - Evaluate weight weekly, note any furth er changes or concerns. - Follow-up appointment scheduled in six weeks or sooner if symptoms worsen. - Seek medical attention for any new or worsening symptoms or concerns. Consent Patient was informed and verbally consented to the use of an ambient scribe for clinic note documentation during this visit. Total time spent caring for the patient today was 45 minutes. This includes time spent before the visit reviewing the chart, time spent during the visit, and time spent after the visit on documentation, reviewing laboratory results, diagnostic imaging, medications, performing a medically necessary evaluation, counseling on diagnoses, care coordination, ordering appropriate tests, ordering appropriate medications, review of tests performed by other providers, reporting test results with the patient, communication with other healthcare providers. [facility] Medical History (Updated 02/06/25 @ 15:12 by DINESH Hernandez) Decreased hearing Hyponatremia Scalp cyst Surgical History No pertinent past surgical history Family History Father No problems noted. Mother No problems noted. Brother No problems noted. Social History (Updated 01/11/24 @ 10:40 by Claudia Mosley [facility]) Household Members: Other Household Members Other:: Cat Both parents involved: No Caregiver staying overnight: No Housing: House Are you a primary health care coordinator to a significant other at home: No Do you presently have visiting nurse or other home services: No 75 years or older and lives alone: Yes Alcohol intake: current Alcohol intake frequency: holidays/special occasions only Patient Tobacco Use Status: Never used Tobacco e-Cigarette/Vaping Use: Never Used service: No Current occupational status: retired Current occupational exposures/hazards: No Cognitive needs: No Hearing needs: No Vision needs: No Questionnaire PHQ-9 Over the last 2 weeks, how often have you been bothered by any of the following problems? 3. Trouble falling or staying asleep, or sleeping too much: not at all 4. Feeling tired or having little energy: not at all 5. Poor appetite or overeating: not at all 6. Feeling bad about yourself - or that you are a failure or have let yourself or your family down: not at all 7. Trouble concentrating on things, such as reading the newspaper or watching television: not at all 8. Moving or speaking so slowly that other people could have noticed. Or the opposite - being so fidgety or restless that you have been moving around a lot more than usual: not at all 9. Thoughts that you would be better off or of hurting yourself in some way: not at all Depression Screening Interpretation: Negative Depression Screening Done: Yes 67954 - PHQ-9 Billing: Yes Source: Developed by Drs. Abe Navarrete, Shonda Dillon, Aftab Stanford and colleagues, with an educational michael from [employer]. Thrive Questionnaire Date Thrive assessed: 02/06/25 I am a: Patient What is your living situation today?: I have a steady place to live Within the past 12 months, did the food you bought not last and you didn't have the money to get more?: Never true Within the past 12 months, did you worry whether your food would run out before you got money to buy more?: Never true Do you have trouble paying for medicines?: No Do you have trouble getting transportation to medical appointments?: No Do you have trouble paying your heating and electricity bill?: No Do you have trouble taking care of your child, family member or friend?: No Do you have trouble with day-to-day activities such as bathing, preparing meals, shopping, managing finances, etc.?: No Are you currently unemployed and looking for a job?: No Are you interested in more education?: No THRIVE Score: 0 AUDIT C Alcohol Use Questionnaire (AUDIT-C) 1. How often do you have a drink containing alcohol?: Never 2. How many drinks containing alcohol do you have on a typical day when you are drinking?: 1 or 2 3. How often do you have six or more drinks on one occasion?: Never Total Score: 0 Score Reviewed/Action Taken: Yes NAFISA-7 AMB Questionnaire NAFISA-7 Date NAFISA - 7 assessed: 12/06/24 Feeling nervous, anxious, or on edge: 0 = Not at all Not being able to stop or control worryin = Not at all Worrying too much about different things: 0 = Not at all Trouble relaxin = Not at all Being so restless that it is hard to sit still: 0 = Not at all Becoming easily annoyed or irritable: 0 = Not at all Feeling afraid as if something awful might happen: 0 = Not at all Total NAFISA-7 score (0-4 normal; 5-9 mild; 10-14 moderate; 15-21 severe): 0 Source: Developed by Drs. Abe aNvarrete, Shonda Dillon, Aftab Stanford and colleagues, with an educational michael from [employer]. NAFISA-7 Assessment Billing NAFISA-7 Assessment Tool: NAFISA-7 Assessment 69487 Physical exam (Primary Care) Vital Signs: Last Vital Signs Temp 96.9 F 02/06/25 13:29 Pulse 82 02/06/25 13:29 Resp 13 02/06/25 13:29 BP 112/60 02/06/25 13:57 Pulse Ox 99 02/06/25 13:29 Oxygen Delivery Method Room Air 02/06/25 13:29 BMI result Body Mass Index 16.1 Tobacco/Smoking Status: Tobacco use Status Tobacco use date assessed 02/06/25 02/06/25 13:27 Patient Tobacco Use Status Never used Tobacco 02/06/25 13:24 e-Cigarette/Vaping Use Never Used 02/06/25 13:24 Depression Screening Interpretation: Negative Thrive Assessment: Date of Thrive Assessment Date Thrive assessed 02/06/25 02/06/25 13:27 Coding Level of Care Code Est Pt Level 5 (42942) Complex EM visit Add On G2211 Diagnoses Dyslipidemia, goal LDL below 100 E78.5 NAFISA (generalized anxiety disorder) F41.1 Essential hypertension I10 Hypertension type: essential hypertension 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 Plan: counseling - referred previously but had not heard, sent urgent message to mgr to help, cont BuSpar Code(s): F41.1 - Generalized anxiety disorder Category: Medical (3) Hypertension: Comment: At goal on Norvasc 5 mg, lisinopril 20 mg q.a.m., metoprolol 75 mg q.a.m., clonidine 0.1 mg q.pm. Plan: Continue this medication regimen. Code(s): I10 - Essential (primary) hypertension Category: Medical Qualifiers: Hypertension type: essential hypertension Qualified Code(s): I10 - Essential (primary) hypertension (4) Insomnia secondary to anxiety: Code(s): F41.9 - Anxiety disorder, unspecified; F51.05 - Insomnia due to other mental disorder Category: Medical Plan . Orders: Referrals Nurse Navigator Referral F41.1 - Generalized anxiety disorder Medications: New mirtazapine 7.5 mg PO BEDTIME 90 tabs 0RF Refilled buspirone 15 mg PO BID 180 tabs 2RF 90 days amlodipine (Norvasc) 5 mg PO .DAILY AT BEDTIME 90 tabs 2RF metoprolol succinate ER 75 mg (3 x 25 mg) PO ONCE 270 tabs 2RF lisinopril 20 mg PO DAILY 90 tabs 2RF
[2025-02-06 13:29] VITALS: BP 142/78; PULSE 82; RESP 13; TEMP 36.1; O2SAT 99; BMI 16.1
[2025-02-06 13:57] VITALS: BP 112/60
== END 2025-02-06 14:10 | disposition home or self-care (01) ==
LOC: HO.HMCFM 13:04
PROVIDERS: PCP Nurse Practitioner Family; Visit Provider Nurse Practitioner Family
DX: E78.5 Hyperlipidemia, unspecified (principal); F41.1 Generalized anxiety disorder; I10 Essential (primary) hypertension; F41.9 Anxiety disorder, unspecified; F51.05 Insomnia due to other mental disorder

== ENCOUNTER → 2025-02-06 13:04 | Outpatient (BNVA) | payer MEDICARE, SELFPAY | PROVIDERS: PCP Nurse Practitioner Family; Visit Provider Nurse Practitioner Family | DX: E78.5 Hyperlipidemia, unspecified (principal); F41.1 Generalized anxiety disorder; F41.9 Anxiety disorder, unspecified; F51.05 Insomnia due to other mental disorder; I10 Essential (primary) hypertension | CPT/HCPCS: 96127; 99212 ==

== ENCOUNTER 2025-02-07 15:40 | Outpatient (REF) | payer SELFPAY | END 2025-02-07 15:41 | disposition home or self-care (01) | LOC: HO.HAP 15:40 | PROVIDERS: Visit Provider Nurse Practitioner Family | DX: Z46.1 Encounter for fitting and adjustment of hearing aid (principal); H90.A21 Sensorineural hearing loss, unilateral, right ear, with restricted hearing on the contralateral side; H90.A32 Mixed conductive and sensorineural hearing loss, unilateral, left ear with restricted hearing on the contralateral side | CPT/HCPCS: V5266 ==

== ENCOUNTER 2025-02-15 15:19 | Outpatient (AMB) | payer MEDICARE, SELFPAY ==
--- NOTE | 2025-02-15 15:23 | A.OFFPC_ITS ---
Intake Visit Reasons: Med review Intake Note: telehealth follow up on med review Scorer Helper Required: No Allergies No Known Allergies [No Known Allergies*] Allergy (Verified 02/15/25 16:41) Medication List - Last Reconciled 02/15/25 by Irene Lunsford [facility]- amlodipine (Norvasc) 5 mg PO .DAILY AT BEDTIME buspirone 15 mg PO BID 90 days clonidine HCl 0.1 mg PO BEDTIME 3 months lisinopril 20 mg PO DAILY metoprolol succinate ER 75 mg (3 x 25 mg) PO ONCE mirtazapine 7.5 mg PO BEDTIME Tobacco use date assessed: 02/15/25 Fall risk assessment: No Falls in past year Last assessed Fall Risk: 02/15/25 Dental Screening Dental Screen Date: 02/15/25 Did you have a dental visit in the last 12 months?: Yes Did you have a dental problem in the last 6 months where you did not have access to dental care?: No Was dental information given to patient?: Patient has dentist HPI HPI Comments History of Present Illness Details History of Present Illness - The patient is a 74-year-old female pr esenting with medication clarification and prescription refill issues. mirtazapine cost of $60 for 90 days - Needs her prescription for lisinopril re-sent due to a limited supply. - Needs her prescription for lisinopril re-sent due to a limited supply. Assessment and Plan 1. Hypertension: Lisinopril prescription to be resent for timely refill, considering the patient?s remaining four tablets. Coordination with pharmacy ensures continuous treatment of hypertension. 2. Mirtazapine adjustment issue: Clarifi cation provided for mirtazapine prescription; insurance coverage allows for a 15 mg tablet split in half, thereby reducing the copay to $18.95. Can use [employer] - message sent to [employer]. 3. Prescription refill coordination: Pump Rebuilder rdinated with pharmacy for filling mirtazapine and lisinopril prescriptions, ensuring correct dispensation. Confirmed metoprolol supply is sufficient for now, requiring no immediate action. Telehealth Attestation This visit was conducted via a secure telehealth platform. The patient's identity was verified, and I attest that the documentation captures the visit's discussion accurately. The patient has been explained that this is an interactive (audio/video) telehealth encounter and what that consists of. The patient understands and wishes to proceed. [employer] platform was used. Total time spent caring for the patient today was 20 minutes. This includes time spent before the visit reviewing the chart, time spent during the visit, and time spent after the visit on documentation, reviewing laboratory results, diagnostic imaging, medications, performing a medically necessary evaluation, counseling on diagnoses, care coordination, ordering appropriate tests, ordering appropriate medications, review of tests performed by other providers, reporting test results with the patient, communication with other healthcare providers. ON LICENSE OF [facility] Medical History (Updated 02/06/25 @ 15:12 by DUC Hernandez-RAMAN) Decreased hearing Hyponatremia Scalp cyst Surgical History No pertinent past surgical history Family History Father No problems noted. Mother No problems noted. Brother No problems noted. Social History (Updated 01/11/24 @ 10:40 by Claudia Mosley [facility]) Household Members: Other Household Members Other:: Cat Both parents involved: No Caregiver staying overnight: No Housing: House Are you a primary critical care physician assistant to a significant other at home: No Do you presently have visiting nurse or other home services: No 75 years or older and lives alone: Yes Alcohol intake: current Alcohol intake frequency: holidays/special occasions only Patient Tobacco Use Status: Never used Tobacco e-Cigarette/Vaping Use: Never Used service: No Current occupational status: retired Current occupational exposures/hazards: No Cognitive needs: No Hearing needs: No Vision needs: No Questionnaire Thrive Questionnaire Date Thrive assessed: 02/06/25 NAFISA-7 AMB Questionnaire NAFISA-7 Date NAFISA - 7 assessed: 12/06/24 Source: Developed by Drs. Abe Navarrete, Shonda Dillon, Aftab Stanford and colleagues, with an educational michael from [email or web address]. Physical exam (Primary Care) Tobacco/Smoking Status: Tobacco use Status Tobacco use date assessed 02/15/25 02/15/25 15:24 Patient Tobacco Use Status Never used Tobacco 02/15/25 15:24 e-Cigarette/Vaping Use Never Used 02/15/25 15:24 Thrive Assessment: Date of Thrive Assessment Date Thrive assessed 02/06/25 02/15/25 15:24 Telehealth Telehealth Telehealth Platform: [facility] Location of provider rendering services: practice address Location of patient: address on file Patient Identification confirmed using: Name, : Yes Telehealth method: voice only Patient verbally consented to treatment: Yes Patient verbally consented to billing insurance company: Yes Patient informed of any privacy concerns related to visit: Yes Minutes spent on Phone/Video with Pt.: 15 Coding Level of Care Code Tele Est Pt Level 3 (38261) Complex EM visit Add On G2211 Diagnoses NAFISA (generalized anxiety disorder) F41.1 Essential hypertension I10 Hypertension type: essential hypertension Assessment & Plan Assessment & Plan (1) NAFISA (generalized anxiety disorder): Comment: chronic, on BB and Clonidine for BP and Anxiety. Plan: counseling - referred previously but had not heard, sent urgent message to mgr to help, cont BuSpar Code(s): F41.1 - Generalized anxiety disorder Category: Medical (2) Hypertension: Comment: At goal on Norvasc 5 mg, lisinopril 20 mg q.a.m., metoprolol 75 mg q.a.m., clonidine 0.1 mg q.pm. Plan: Continue this medication regimen. Code(s): I10 - Essential (primary) hypertension Category: Medical Qualifiers: Hypertension type: essential hypertension Qualified Code(s): I10 - Essential (primary) hypertension Plan . Medications: New mirtazapine 15 mg PO BEDTIME 90 tabs 0RF Refilled metoprolol succinate ER 75 mg (3 x 25 mg) PO ONCE 270 tabs 2RF Discontinued mirtazapine Discontinued Reason: Insurance Denied 7.5 mg PO BEDTIME 90 tabs 0RF
== END 2025-02-15 17:05 | disposition home or self-care (01) ==
PROVIDERS: PCP Nurse Practitioner Family; Visit Provider Nurse Practitioner Family
DX: I10 Essential (primary) hypertension (principal); F41.1 Generalized anxiety disorder

== ENCOUNTER → 2025-02-15 15:19 | Outpatient (BNVA) | payer MEDICARE, SELFPAY | PROVIDERS: PCP Nurse Practitioner Family; Visit Provider Nurse Practitioner Family ==

== ENCOUNTER 2025-03-01 15:52 | Outpatient (REF) | payer SELFPAY ==
--- NOTE | 2025-03-01 16:40 | MHC.AU.HA3 ---
Hearing Instrument Follow-Up- Binaural Date of Visit: 03/01/25 Right Ear: Fabrizio, Model, Color, Serial Number: Boris GILLETTE B [id number] SN: [id number] Color: Amelie Desktop Analyst Repair Warranty: 12/28/2017 Desktop Analyst Loss and Damage Warranty: 12/28/2017 [facility] Service Plan: Battery Size: 312 Oxygen System Tester/Slim Tube: #2 CROS Tube Earmold/Dome/CShell/SlimTip:Phonak slim tip Type of Wax Guard: Dispensed By: [facility] Date of Fittin10/08/2016 Left Ear: Fabrizio, Model, Color, Serial Number: Boris Zeeo [place] [id number] SN: [id number] Color: Amelie Desktop Analyst Repair Warranty: 12/28/2019 Desktop Analyst Loss and Damage Warranty: 12/28/2019 [facility] Service Plan: Battery Size: 312 Oxygen System Tester/Slim Tube: #0 standard Earmold/Dome/CShell/SlimTip: Phonak canal lock slim tip Type of Wax Guard: CeruStop Dispensed By: [facility] Date of Fittin10/08/2016 Follow-Up Summary: Sharla reports feedback from the left hearing aid. Otoscopy reveals partially occluding cerumen. Sharla opted to have cerumen removal done elsewhere rather than pay OOP here. Noted cerumen build up on earmold and wax guard. Sharla preferred to have her ear cleaned first and then return for hearing aid maintenance. Did not charge today as maintenance was not performed. Recommendations: Recommendations: Return for hearing aid maintenance following cerumen removal. Diagnosis Code(s): Primary Diagnosis: H90.3 Bilateral Sensorineural Hearing Loss Signature: Provider: Harshad Parra, CCC-A
== END 2025-03-01 15:53 | disposition home or self-care (01) ==
LOC: HO.HAP 15:52
PROVIDERS: Visit Provider Nurse Practitioner Family
DX: Z13.89 Encounter for screening for other disorder (principal)

== ENCOUNTER 2025-03-28 10:22 | Outpatient (REF) | payer MEDICARE, SELFPAY ==
[2025-03-28 14:31] LABS: Appearance Urine Clear; Color Urine Yellow; Glucose Urine UA Negative (Negative); Leukocyte Esterase Urine Moderate (2+) (Negative); Nitrite Urine Negative (Negative); Specific Gravity - Urine <= 1.005 (1.005-1.025); UMIC TRIGGER UACC YES; Urine Blood Negative (Negative); Urine Ketones Negative (Negative); Urine Protein Negative (Neg-Trace)
[2025-03-28 14:36] LABS: Bacteria Urine None Seen (None Seen); Hyaline Casts Urine 0-2 /LPF (0-2); RBC Urine 0-2 /HPF (0-2); Squamous Epithelial Cell Urine 0-2 /HPF (0-2); UACC Culture Trigger YES
== END 2025-03-28 10:23 | disposition home or self-care (01) ==
LOC: HO.LAB 10:22
PROVIDERS: PCP Nurse Practitioner Family; Visit Provider Nurse Practitioner Family
DX: F41.1 Generalized anxiety disorder (principal); I10 Essential (primary) hypertension; R44.1 Visual hallucinations; R15.1 Fecal smearing; Z79.899 Other long term (current) drug therapy; Z11.2 Encounter for screening for other bacterial diseases
CPT/HCPCS: 81001; 87086; 87088; 87186; 99212

== ENCOUNTER 2025-03-28 10:22 | Outpatient (AMB) | payer MEDICARE, SELFPAY ==
--- NOTE | 2025-03-28 10:23 | A.OFFPC_ITS ---
Vital Signs 03/28/25 10:28 Height 5 ft 6 in Weight 99 lb 8 oz BMI 16.1 BP 124/73 Blood Pressure Location Lt brachial Position Sitting Respiration 12 Pulse 78 Pulse Source Pulse Oximeter Temp 97.5 F Temp Source Oral Pulse Oximetry (%) 98 Oxygen Delivery Method Room Air Intake Visit Reasons: 6 weeks 30 min FU start mirtazapine Intake Note: Follow up on med review Manager Home Healthcare Required: No Allergies No Known Allergies [No Known Allergies*] Allergy (Verified 03/28/25 10:32) Medication List - Last Reconciled 03/28/25 by Irene Lunsford, GROUP CAPTAIN- amlodipine (Norvasc) 5 mg PO .DAILY AT BEDTIME buspirone 15 mg PO BID 90 days clonidine HCl 0.1 mg PO BEDTIME 3 months lisinopril 20 mg PO DAILY metoprolol succinate ER 75 mg (3 x 25 mg) PO ONCE mirtazapine 15 mg PO BEDTIME Tobacco use date assessed: 02/15/25 Fall risk assessment: No Falls in past year Last assessed Fall Risk: 03/28/25 Dental Screening Dental Screen Date: 02/15/25 HPI HPI Comments History of Present Illness Details 75-year-old female with hypertension, an xiety, hard of hearing, Status post bilat cataract extraction (2020), onychomycosis History of Present Illness - The patient is a 75-year-old female pr esenting for follow-up on insomnia and mirtazapine administration. - The insomnia is persistent, with joey zapine prescribed for its management approximately six weeks ago. - Concerns about possible side effects p revented commencement of prescribed medication, although lower dosage of 7.5 mg was advised. 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 - Anxiety may be a contributing factor t o sleep disturbances. - Exhibited weight loss was mentioned, w ith mirtazapine also considered for potential stabilization in body weight. - A history of visual hallucination exis fabrizio, comprising mostly nighttime occurrences of atypical visual experiences recognized as unreal. this has been happening for years; first time she ahs told me this. has seen a cat and her brother. - Hypertension was mentioned as being ma naged properly. - Bowel incontinence was acknowledged in correlation with potential urinary infections. Physical Exam General: Well developed, well nourished, in no acute distress. Appears stated age. Head: Normocephalic, atraumatic. Eyes: Pupils are equal, round and reactive to light and accommodation. Co njunctivae are clear. Vision grossly normal. Lungs: Clear to auscultation bilaterally. No rales, rhonchi or wheeze noted. Good air flow in all lainez. Heart: Regular rate and rhythm. No murmurs, click, rubs or gallops are noted. Abdomen: Bowel sounds present in all quadrants. The abdomen is soft, nontender, with no masses or organomegaly noted. No hernias are noted. Musculoskeletal: Joints are nontender, without swelling, redness, or effusions. Pulses: Peripheral pulses are equal and palpable bilaterally. Extremities: No clubbing, cyanosis nor edema is noted. Psych: Mood and affect appropriate. Reports occasional visual hallucinations, aware they are not real. No current signs of depression, nervousness, restlessness, or changes in mood or action. Results Discussion Notes In our discussion, I emphasized the safety and efficacy of mirtazapine, especially for individuals over 65, due to its record of use and tolerability. Possible side effects were reviewed, such as changes in mood or eye issues, explaining that continued evaluation is paramount. Mirtazapine can help with both insomnia and anxiety. I also explained that melatonin primarily aids in sleep onset but is inadequate for maintaining sleep, and it would neither address mood issues nor aid in weight stabilization like mirtazapine. During the conversation about visual disturbances, I noted the need to rule out urinary tract infections as a potential cause. We also agreed on simply obtaining a urinalysis to screen for infection and ensure the visual phenomena weren?t caused by any urinary complications. Follow-up plans include checking for infections or other complications before proceeding with any changes in medication and setting an appointment in two weeks to reassess the current plan of care. Physical Exam Awake alert NAD RRR, LS CTAB no CVAT No abd tenderness No edema BLE Anxious, appropriate Results UA requested, results pending Assessment and Plan 1. Insomnia and Anxiety Hold off on starting mirtazapine for now. The side effect risks of mirtazapine were discussed to reassure the patient. 2. Visual Hallucinations A urinalysis was advised to exclude urinary infections that might explain visual changes. Recommendations include reevaluating the treatment plan post-urinalysis to finalize management. 3. Hypertension Current hypertension management is effective with no changes planned. Blood pressure monitoring showed consistent control. Patient Instructions - Wait for the results of the urinalysis before starting mirtazapine. - Follow up as scheduled in two weeks to review urinalysis results and further treatment plans. - Continue to monitor blood pressure and maintain current dietary restrictions. - Seek immediate care if experiencing pereira dden vision changes, increased urination frequency, or high fever. Consent Patient was informed and verbally consented to the use of an ambient scribe for clinic note documentation during this visit. Total time spent caring for the patient today was 41 minutes. This includes time spent before the visit reviewing the chart, time spent during the visit, and time spent after the visit on documentation, reviewing laboratory results, diagnostic imaging, medications, performing a medically necessary evaluation, counseling on diagnoses, care coordination, ordering appropriate tests, ordering appropriate medications, review of tests performed by other providers, reporting test results with the patient, communication with other healthcare providers. [facility] Medical History (Updated 03/28/25 @ 10:54 by DINESH Hernandez) Decreased hearing Hyponatremia Scalp cyst Surgical History No pertinent past surgical history Family History Father No problems noted. Mother No problems noted. Brother No problems noted. Social History (Updated 01/11/24 @ 10:40 by Claudia Mosley [facility]) Household Members: Other Household Members Other:: Cat Housing: House Are you a primary care management associate to a significant other at home: No Do you presently have visiting nurse or other home services: No Alcohol intake: current Alcohol intake frequency: holidays/special occasions only Patient Tobacco Use Status: Never used Tobacco e-Cigarette/Vaping Use: Never Used service: No Current occupational status: retired Current occupational exposures/hazards: No Cognitive needs: No Hearing needs: No Vision needs: No Questionnaire Thrive Questionnaire Date Thrive assessed: 02/06/25 NAFISA-7 AMB Questionnaire NAFISA-7 Date NAFISA - 7 assessed: 12/06/24 Source: Developed by Drs. Abe Navarrete, Shonda Dillon, Aftab Stanford and colleagues, with an educational michael from [employer]. Physical exam (Primary Care) Vital Signs: Last Vital Signs Temp 97.5 F 03/28/25 10:28 Pulse 78 03/28/25 10:28 Resp 12 03/28/25 10:28 BP 124/73 03/28/25 10:28 Pulse Ox 98 03/28/25 10:28 Oxygen Delivery Method Room Air 03/28/25 10:28 BMI result Body Mass Index 16.1 Tobacco/Smoking Status: Tobacco use Status Tobacco use date assessed 02/15/25 03/28/25 10:23 Patient Tobacco Use Status Never used Tobacco 03/28/25 10:23 e-Cigarette/Vaping Use Never Used 03/28/25 10:23 Thrive Assessment: Date of Thrive Assessment Date Thrive assessed 02/06/25 03/28/25 10:23 Coding Level of Care Code Est Pt Level 5 (79522) Complex EM visit Add On G2211 Diagnoses NAFISA (generalized anxiety disorder) F41.1 Essential hypertension I10 Hypertension type: essential hypertension Visual hallucinations R44.1 Fecal smearing R15.1 Fecal incontinence type: fecal smearing Assessment & Plan Assessment & Plan (1) NAFISA (generalized anxiety disorder): Comment: chronic, on BB and Clonidine for BP and Anxiety. Plan: counseling - referred previously but had not heard, sent urgent message to mgr to help, cont BuSpar Code(s): F41.1 - Generalized anxiety disorder Category: Medical (2) Hypertension: Comment: At goal on Norvasc 5 mg, lisinopril 20 mg q.a.m., metoprolol 75 mg q.a.m., clonidine 0.1 mg q.pm. Plan: Continue this medication regimen. Code(s): I10 - Essential (primary) hypertension Category: Medical Qualifiers: Hypertension type: essential hypertension Qualified Code(s): I10 - Essential (primary) hypertension (3) Visual hallucinations: Code(s): R44.1 - Visual hallucinations Category: Medical (4) Fecal incontinence: Code(s): R15.9 - Full incontinence of feces Category: Medical Qualifiers: Fecal incontinence type: fecal smearing Qualified Code(s): R15.1 - Fecal smearing Plan . Orders: Orders UA CC w/rflx Micro + Cult 03/28/25 R44.1 - Visual hallucinations, Z11.2 - Encounter for screening for other bacterial diseases
[2025-03-28 10:28] VITALS: BP 124/73; PULSE 78; RESP 12; TEMP 36.4; O2SAT 98; BMI 16.1
== END 2025-03-28 11:11 | disposition home or self-care (01) ==
LOC: HO.HMCFM 10:22
PROVIDERS: PCP Nurse Practitioner Family; Visit Provider Nurse Practitioner Family
DX: F41.1 Generalized anxiety disorder (principal); I10 Essential (primary) hypertension; R44.1 Visual hallucinations; R15.1 Fecal smearing

== ENCOUNTER 2025-03-29 15:33 | Outpatient (REF) | payer SELFPAY ==
--- NOTE | 2025-03-29 16:40 | MHC.AU.CER ---
Cerumen Removal Date of Visit: 03/29/25 Medical Conditions: Tinnitus Medications: No Medications of Concern for Cerumen Removal Procedure: Right Ear: Unusual Findings: none Prior to Removal: Moderate Cerumen Present Outcome of Procedure: n/a Other: Non occluding cerumen observed. Did not remove cerumen from right ear, not necessary for CROS function. Left Ear: Unusual Findings: none Prior to Removal: Complete Occlusion Outcome of Procedure: Cerumen was easily removed Most cerumen was removed. Other: Most cerumen removed without incidence. Some cerumen left behind adhered to canal wall. Recommendations: Recommendations: Follow-up as needed Use of cerumen drops, such as Debrox or EarWaxMD Recommendations (Other): Sharla Patel had previously suggested wax softening ear drops, agreed these could be used to help prevent future occlusion. Diagnosis Code(s): Primary Diagnosis: H90.3 Bilateral Sensorineural Hearing Loss Secondary Diagnosis: H61.22 Impacted Cerumen, Left Ear Services Performed: Cerumen Removal (CPT 57358) One Ear Signature: Provider: Harshad Parra, [facility]
--- NOTE | 2025-03-29 16:40 | MHC.AU.HA3 ---
Hearing Instrument Follow-Up- Binaural Date of Visit: 03/29/25 Right Ear: Fabrizio, Model, Color, Serial Number: Boris GILLETTE B [id number] SN: [id number] Color: Amelie Nurse Researcher Repair Warranty: 12/28/2017 Nurse Researcher Loss and Damage Warranty: 12/28/2017 [facility] Service Plan: Battery Size: 312 Telephone Technician/Slim Tube: #2 CROS Tube Earmold/Dome/CShell/SlimTip:Phonak slim tip Type of Wax Guard: Dispensed By: [facility] Date of Fittin10/08/2016 Left Ear: Fabrizio, Model, Color, Serial Number: oBris Zeeo [id number] SN: [id number] Color: Amelie Nurse Researcher Repair Warranty: 12/28/2019 Nurse Researcher Loss and Damage Warranty: 12/28/2019 [facility] Service Plan: Battery Size: 312 Telephone Technician/Slim Tube: #0 standard Earmold/Dome/CShell/SlimTip: Phonak canal lock slim tip Type of Wax Guard: CeruStop Dispensed By: [facility] Date of Fittin10/08/2016 Follow-Up Summary: Sharla reports feedback from left aid. Performed cerumen removal today (see note). Cleaned aid and CROS. Replaced wax guard. Vacuumed microphones. Cleaned slim tips. Listening check positive. Sharla reports improvement in hearing clarity following cerumen removal and hearing aid maintenance. No longer getting feedback. Recommendations: Recommendations: Hearing instrument follow-up or maintenance as needed. Diagnosis Code(s): Primary Diagnosis: H90.3 Bilateral Sensorineural Hearing Loss Secondary Diagnosis: H61.22 Impacted Cerumen, Left Ear Signature: Provider: Harshad Parra, CCC-A
== END 2025-03-29 15:34 | disposition home or self-care (01) ==
LOC: HO.HAP 15:33
PROVIDERS: Visit Provider Nurse Practitioner Family
DX: Z46.1 Encounter for fitting and adjustment of hearing aid (principal); H90.3 Sensorineural hearing loss, bilateral
CPT/HCPCS: 92593; 92700

== ENCOUNTER 2025-04-14 11:26 | Outpatient (AMB) | payer MEDICARE, SELFPAY ==
--- NOTE | 2025-04-14 11:35 | A.OFFPC_ITS ---
Vital Signs 04/14/25 11:40 Height 5 ft 6 in Weight 100 lb 4 oz BMI 16.2 BP 102/66 Blood Pressure Location Lt brachial Position Sitting Respiration 12 Pulse 59 Pulse Source Pulse Oximeter Temp 97.5 F Temp Source Oral Pulse Oximetry (%) 99 Oxygen Delivery Method Room Air Intake Visit Reasons: FU Mirt/Hallucinations Intake Note: Routine follow up for hallucinations Geographic Analyst Required: No Allergies No Known Allergies [No Known Allergies*] Allergy (Verified 04/14/25 12:04) Medication List - Last Reconciled 04/14/25 by RUIZ HernandezP- amlodipine (Norvasc) 5 mg PO .DAILY AT BEDTIME buspirone 15 mg PO BID 90 days clonidine HCl 0.1 mg PO BEDTIME 3 months lisinopril 20 mg PO DAILY metoprolol succinate ER 75 mg (3 x 25 mg) PO ONCE mirtazapine 15 mg PO BEDTIME Tobacco use date assessed: 04/14/25 Fall risk assessment: No Falls in past year Last assessed Fall Risk: 04/14/25 Dental Screening Dental Screen Date: 04/14/25 Did you have a dental visit in the last 12 months?: Yes Did you have a dental problem in the last 6 months where you did not have access to dental care?: No Was dental information given to patient?: Patient has dentist HPI HPI Comments History of Present Illness Details 75-year-old female with hypertension, an xiety, hard of hearing, Status post bilat cataract extraction (2020), onychomycosis History of Present Illness - The patient is a 75-year-old female pr esenting with a follow-up for urinary tract infection and management of hallucination episodes. - Prior UTI with E. coli treated with ce phalexin. - No recalled further hallucinations aft er completing antibiotics. - Experiences vivid dreams, recently of her brother. - Reports intermittent urinary incontine nce. Review of Systems - Neurological: Reports vivid dreams; de nies further hallucinations. - Genitourinary: Reports completed antib iotic course for UTI; denies dysuria. - Gastrointestinal: Reports bowel moveme nt irregularity. - Psychiatric: Reports tiredness; stress from family situation. Physical Exam Awake alert NAD RRR, LS CTAB no CVAT No abd tenderness No edema BLE Anxious, appropriate Results Labs: - Previous urinalysis showed presence of E. coli. Labs: - Previous urinalysis showed presence of E. coli. Discussion Notes During today's visit, we reviewed the completed 5-day course of cephalexin for the patient's urinary tract infection caused by E. coli. I clarified that urinary tract infections could occur without pain during urination. We discussed repeating the urinalysis to confirm the absence of the infection and planned to act based on these results. I reviewed with the patient the potential link between urinary and bowel concerns and explained treatment if chronic infection is substantiated. We deferred initiating mirtazapine pending urine analysis results. The patient and I discussed the potential use of mirtazapine to assist with sleep and weight stabilization, only pursuing it post-clearance of infection. The potential continuation of hallucinations would warrant further investigation. Routine monitoring, including a Medicare visit in August, and ro utine lab tests were planned to precede that assessment. Assessment and Plan 1. Urinary Tract Infection - Repeat urinalysis. Alternative antibio tic if unresolved. 2. Hallucination episodes - Potentially consider mirtazapine pendi ng urinalysis result. 3. Incontinence/Bowel movement irregular ity - Assess chronic treatment necessity pos t urinalysis. 4. Evaluation and monitoring - Routine labs and Medicare screening pr eparation for August. - Continue current blood pressure and ch olesterol management. Patient Instructions - Complete follow-up urinalysis as discu ssed. - Monitor urinary and bowel symptoms gen sely. - Notify if symptoms persist or worsen. - Anticipate potential medication change s based on urinalysis results. - Engage in stress-relief activities due to familial concerns. - Return for Medicare visit in August w ith required labs completed. Consent Patient was informed and verbally consented to the use of an ambient scribe for clinic note documentation during this visit. Total time spent caring for the patient today was 30 minutes. This includes time spent before the visit reviewing the chart, time spent during the visit, and time spent after the visit on documentation, reviewing laboratory results, diagnostic imaging, medications, performing a medically necessary evaluation, counseling on diagnoses, care coordination, ordering appropriate tests, ordering appropriate medications, review of tests performed by other providers, reporting test results with the patient, communication with other healthcare providers. [facility] Medical History (Updated 04/14/25 @ 12:24 by Irene Lunsford, BETA TESTERAUR[employer]A) Decreased hearing Hyponatremia Scalp cyst Surgical History No pertinent past surgical history Family History Father No problems noted. Mother No problems noted. Brother No problems noted. Social History (Updated 01/11/24 @ 10:40 by Claudia Mosley [facility]) Household Members: Other Household Members Other:: Cat Both parents involved: No Caregiver staying overnight: No Housing: House Are you a primary career professional to a significant other at home: No Do you presently have visiting nurse or other home services: No 75 years or older and lives alone: Yes Alcohol intake: current Alcohol intake frequency: holidays/special occasions only Patient Tobacco Use Status: Never used Tobacco e-Cigarette/Vaping Use: Never Used service: No Current occupational status: retired Current occupational exposures/hazards: No Cognitive needs: No Hearing needs: No Vision needs: No Questionnaire Thrive Questionnaire Date Thrive assessed: 02/06/25 NAFISA-7 AMB Questionnaire NAFISA-7 Date NAFISA - 7 assessed: 12/06/24 Source: Developed by Drs. Abe Navarrete, Shonda Dillon, Aftab Stanford and colleagues, with an educational michael from [employer]. Physical exam (Primary Care) Vital Signs: Last Vital Signs Temp 97.5 F 04/14/25 11:40 Pulse 59 04/14/25 11:40 Resp 12 04/14/25 11:40 BP 102/66 04/14/25 11:40 Pulse Ox 99 04/14/25 11:40 Oxygen Delivery Method Room Air 04/14/25 11:40 BMI result Body Mass Index 16.2 Tobacco/Smoking Status: Tobacco use Status Tobacco use date assessed 04/14/25 04/14/25 11:37 Patient Tobacco Use Status Never used Tobacco 04/14/25 11:37 e-Cigarette/Vaping Use Never Used 04/14/25 11:37 Thrive Assessment: Date of Thrive Assessment Date Thrive assessed 02/06/25 04/14/25 11:37 Results Reviewed Results Reviewed: RUN: 04/14/25 1212 PAGE 1 [facility] [address] [place] [id number] Jeep Driver: Saurav Handy M.D. Specimen Inquiry Name: Sharla Ceja Age/Sex: 75/F : 1950 Unit#: [id number] Attend Dr: Irene Lunsford Re03/28/25 Status: DEP REF Location: [facility] Disch: SPEC : [id number] KAVITA: 03/28/25 STATUS: COMP REQ : [id number] RECD: 03/28/[address]: Irene Lunsford COMP: 03/28/25 ENTERED: 03/28/[address]: ORDERED: [facility] w Micros QUERIES: Source: Urine, Clean Catch Test Result Flag Reference Ur Color Yellow Ur Appear Clear PH 7.0 5.0-9.0 Ur Glu Negative Negative mg/dL Urine Blood Negative Negative Spec [place] Ur <= 1.005 1.005-1.025 Urine Protein Negative Neg-Trace mg/dL Urine Ketones Negative Negative mg/dL Ur Nitrite Negative Negative Ur Elliot Esterase Moderate (2+) H Negative Ur RBC 0-2 0-2 /HPF Ur WBC 11-20 H 0-5 /HPF Ur Squam Epi 0-2 0-2 /HPF Ur Bact None Seen None Seen Ur Hyaline Cafe Assistant 0-2 0-2 /LPF END OF REPORT RUN: 04/14/25 1212 PAGE 1 [facility] [address] [place] [id number] Jeep Driver: Saurav Handy M.D. Specimen Inquiry Name: Sharla Ceja Age/Sex: 75/F : 1950 Unit#: [id number] Attend Dr: Irene Lunsford Re03/28/25 Status: DEP REF Location: .LAB Disch: Specimen: [id number] Collected: 03/28/25-UNK Status: COMP Req#: [id number] Received: 03/28/25 Source: [facility] Sp Desc: Clean Cat Subm Dr: Irene Lunsford Ordered: Urine Culture Procedure Result Verified Urine Culture Final 03/30/25 Organism 1 Escherichia coli Quant 10,000 to 50,000 cfu/mL E coli M.I.C. RX --------- --- Ampicillin >=32 R Cefazolin (Urine) <=1 S Cefepime <=0.12 S Ceftriaxone <=0.25 S Ciprofloxacin <=0.06 S Gentamicin <=1 S Nitrofurantoin <=16 S Trimethoprim/Sulfamethoxazole <=20 S END OF REPORT Coding Level of Care Code Est Pt Level 4 (84018) Complex EM visit Add On G2211 Diagnoses Visual hallucinations R44.1 E. coli UTI N39.0; B96.20 Assessment & Plan Assessment & Plan (1) Visual hallucinations: Code(s): R44.1 - Visual hallucinations Category: Medical (2) E. coli UTI: Code(s): N39.0 - Urinary tract infection, site not specified; B96.20 - Unspecified Escherichia coli [E. coli] as the cause of diseases classified elsewhere Category: Medical Plan . Orders: Orders UA CC w/rflx Micro + Cult Today B96.20 - Unspecified Escherichia coli [E. coli] as the cause of diseases classified elsewhere, N39.0 - Urinary tract infection, site not specified, R44.1 - Visual hallucinations Microalbumin, Random (w Creat) 08/23/25 E78.5 - Hyperlipidemia, unspecified, I10 - Essential (primary) hypertension Vitamin D 25-OH Total 08/23/25 E78.5 - Hyperlipidemia, unspecified, I10 - Essential (primary) hypertension Comprehensive Met. Panel 08/23/25 E78.5 - Hyperlipidemia, unspecified, I10 - Essential (primary) hypertension Lipid Panel 08/23/25 E78.5 - Hyperlipidemia, unspecified, I10 - Essential (primary) hypertension TSH reflex Free T4 08/23/25 E78.5 - Hyperlipidemia, unspecified, I10 - Essential (primary) hypertension Vitamin B12 and Folate 08/23/25 E78.5 - Hyperlipidemia, unspecified, I10 - Essential (primary) hypertension
[2025-04-14 11:40] VITALS: BP 102/66; PULSE 59; RESP 12; TEMP 36.4; O2SAT 99; BMI 16.2
== END 2025-04-14 12:41 | disposition home or self-care (01) ==
LOC: HO.HMCFM 11:27
PROVIDERS: PCP Nurse Practitioner Family; Visit Provider Nurse Practitioner Family
DX: R44.1 Visual hallucinations (principal); N39.0 Urinary tract infection, site not specified; B96.20 Unspecified Escherichia coli [E. coli] as the cause of diseases classified elsewhere

== ENCOUNTER 2025-04-14 11:26 | Outpatient (REF) | payer MEDICARE, SELFPAY ==
[2025-04-14 14:49] LABS: Appearance Urine Clear; Color Urine Yellow; Glucose Urine UA Negative (Negative); Leukocyte Esterase Urine Trace (Negative); Nitrite Urine Negative (Negative); Specific Gravity - Urine <= 1.005 (1.005-1.025); UMIC TRIGGER UACC YES; Urine Blood Negative (Negative); Urine Ketones Negative (Negative); Urine Protein Negative (Neg-Trace)
[2025-04-14 14:52] LABS: Bacteria Urine None Seen (None Seen); Hyaline Casts Urine 0-2 /LPF (0-2); RBC Urine 0-2 /HPF (0-2); Squamous Epithelial Cell Urine 0-2 /HPF (0-2); WBC Urine 0-5 /HPF (0-5)
== END 2025-04-14 11:27 | disposition home or self-care (01) ==
LOC: HO.LAB 11:26
PROVIDERS: PCP Nurse Practitioner Family; Visit Provider Nurse Practitioner Family
DX: I10 Essential (primary) hypertension (principal); E78.5 Hyperlipidemia, unspecified; B96.20 Unspecified Escherichia coli [E. coli] as the cause of diseases classified elsewhere; N39.0 Urinary tract infection, site not specified; R44.1 Visual hallucinations
CPT/HCPCS: 81001; 99212

== ENCOUNTER 2025-04-20 11:24 | Outpatient (REF) | payer SELFPAY | END 2025-04-20 11:25 | disposition home or self-care (01) | LOC: HO.SH 11:24 | PROVIDERS: Visit Provider Nurse Practitioner Family | DX: Z01.118 Encounter for examination of ears and hearing with other abnormal findings (principal); H90.3 Sensorineural hearing loss, bilateral; H61.22 Impacted cerumen, left ear | CPT/HCPCS: V5266 ==

== ENCOUNTER 2025-06-22 11:40 | Outpatient (REF) | payer SELFPAY ==
--- OUTSIDE RECORDS SUMMARY | 2025-06-22 12:21 | XMS_ITS | Clinical Summary ---
Author Organization [facility] Address [address] [place] [address] Phone Care Team Providers Care Package Handler Name Role Phone Sienna Melara STACEY Primary Care Provider Allergies Active Allergy Reactions Criticality Noted Date Comments Codeine Nausea and/or Vomiting 05/05/2023 Medications cloNIDine HCL (CATAPRES) 0.1 MG tablet Take 1 tablet by mouth 2 (two) times a day. 01/27/2023 Active lisinopril-hydr oCHLOROthiazide (PRINZIDE,ZESTO RETIC) 20-25 mg per tablet Take 1 tablet by mouth every morning. 03/30/2023 Active metoprolol succinate (TOPROL-XL) 25 MG 24 hr tablet TAKE 3 TABLETS BY MOUTH EVERY EVENING 04/19/2023 Active sodium chloride 1,000 mg tablet Take 1 tablet by mouth every morning. 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 Not on malick e 04/30/2023 Are you concerned about learning? Not on file 04/30/2023 No 04/30/2023 No 04/30/2023 Digital Access Answer Date Recorded No 04/30/2023 No 04/30/2023 Reliable internet access at home? Not on file 04/30/2023 Device with a working camera? Not on file Comments Unknown Sex and Gender Information Value Date Recorded Sex Assigned at Not on file Legal Sex Female 12:40 PM EDT Gender Identity Not on file Sexual Orientation Not on file Last Filed Vital Signs Vital Sign Reading Time Taken Comments Blood Pressure 160/90 05/05/2023 2:14 PM EDT Pulse 69 05/05/2023 2:14 PM EDT Temperature - - Respiratory Rate - - Oxygen Saturation - - Inhaled Oxygen Concentration - - Weight 46.3 kg (102 lb) 05/05/2023 2:14 PM EDT Height 157.5 cm (5' 2 ) 05/05/2023 2:14 PM EDT Body Mass Index 18.66 05/05/2023 2:14 PM EDT Plan of Treatment Health Maintenance Due Date Last Done Comments Adult Td,Tdap Booster 1948 CREATININE LEVEL 1948 LIPID PANEL 1948 POTASSIUM LEVEL 1948 DEPRESSION SCREENING 1960 HEPATITIS C SCREENING 1966 PNEUMOCOCCAL VACCINES (50+ y ears) (1 of 1 - PCV) 1998 ZOSTER VACCINES (1 of 2) 1998 OSTEOPOROSIS SCREENING INITI AL (ONE-TIME) 2013 RSV VACCINE (1 - 1-dose 75+ series) 2023 COVID-19 VACCINE ( - 2023-2 5 season) 2024 SMOKING STATUS SCREENING (On ce After 26 Yrs) Completed 05/05/2023 HEPATITIS A VACCINES Aged Out No long er eligible based on patient's age to complete this topic HIB VACCINES Aged Out No longer eligi ble based on patient's age to complete this topic MENINGOCOCCAL VACCINES (ACWY) Aged Out No longer eligible based on patient's age to complete this topic MENINGOCOCCAL VACCINES (B) Aged Out N o longer eligible based on patient's age to complete this topic Medical Devices Not on file Insurance 20:20 [employer] MEDEX SUPPLEMENT MEDICARE PART A & B 20:20 [employer] MEDEX SUPPLEMENT MEDICARE PART A & B [employer] MEDEX SUPPLEMENT MEDICARE PART A & B [employer] CROSS MEDEX SUPPLEMENT MEDICARE PART A & B 20:20 [employer] MEDEX SUPPLEMENT MEDICARE PART A & B 20:20 [employer] MEDEX SUPPLEMENT MEDICARE PART A & B Member Subscriber Plan / Payer ( fective 2020-Present) Name:Sharla Ceja Member ID:[id number] Relation to Subscriber:Self Name:Sharla Ceja Subscriber ID:[id number] Payer ID:[id number] Group ID:Not on file Type:Medicare Address: [email or web address] [address] [place] [address] Care Teams Package Handler Relationship Specialty Start Date End Date Sienna Melara NP [address] [facility] [address] [place] [address] PCP - General Nurse Practitioner 04/30/23 Additional Source Comments The information contained in this document represents components of the legal health record. It is not the complete legal health record.[facility]
== END 2025-06-22 11:41 | disposition home or self-care (01) ==
LOC: HO.HAP 11:40
PROVIDERS: Visit Provider Nurse Practitioner Family
DX: Z46.1 Encounter for fitting and adjustment of hearing aid (principal)
CPT/HCPCS: V5266; V5267

== ENCOUNTER 2025-08-22 10:58 | Outpatient (REF) | payer SELFPAY ==
--- OUTSIDE RECORDS SUMMARY | 2025-08-22 12:23 | XMS_ITS | Clinical Summary ---
Author Organization [facility] Address [address] [place] [address] Phone Care Team Providers Care Appellate Court Clerk Name Role Phone Sienna Melara STACEY Primary [...] VACCINE (1 - 1-dose 75+ series) 2023 INFLUENZA VACCINE (#1) 2025 COVID-19 VACCINE (1 - 2023-2 5 season) 2025 SMOKING STATUS SCREENING (On ce After 26 [...] topic Medical Devices Not on file Insurance [email or web address] MEDEX SUPPLEMENT MEDICARE PART A & B Member Subscriber Plan / Payer (Ef fective 2020-Present) Name:Sharla Ceja Member ID:[id number] Relation to Subscriber:Self Name:Sharla Ceja Subscriber ID:[id number] Payer ID:[id number] Group ID:Not on file Type:Medicare Address: [employer] [address] [place] [address] [employer] ([email or web address] MEDEX SUPPLEMENT MEDICARE PART A & B Member Subscriber Plan / Payer (Ef fective 2020-Present) Name:Sharla Ceja Member ID:[id number] Relation to Subscriber:Self Name:Sharla Ceja Subscriber ID:[id number] Payer ID:[id number] Group ID:Not on file Type:Medicare Address: [employer] [address] [place] [address] [employer] CROSS MEDEX SUPPLEMENT MEDICARE PART A & B Member Subscriber Plan / Payer (Ef fective 2020-Present) Name:Sharla Ceja Member ID:[id number] Relation to Subscriber:Self Name:Sharla Ceja Subscriber ID:[id number] Payer ID:[id number] Group ID:Not on file Type:Medicare Address: [employer] [address] [place] [address] BLUE [employer]OSS MEDEX SUPPLEMENT MEDICARE PART A & B Member Subscriber Plan / Payer (Ef fective 2020-Present) Name:Sharla Ceja Member ID:[id number] Relation to Subscriber:Self Name:Sharla Ceja Subscriber ID:[id number] Payer ID:[id number] Group ID:Not on file Type:Medicare Address: [employer] [address] [place] [address] [employer] CROSS MEDEX SUPPLEMENT MEDICARE PART A & B [employer] MEDEX SUPPLEMENT MEDICARE PART A & B Care Teams Appellate Court Clerk Relationship Specialty Start Date End Date Sienna Melara NP [address] [place] [address] PCP - General Nurse Practitioner 04/30/23 Additional Source Comments The information contained in this document represents components of the legal health record. It is not the complete legal health record.[facility]
== END 2025-08-22 10:59 | disposition home or self-care (01) ==
LOC: HO.HAP 10:58
PROVIDERS: Visit Provider Nurse Practitioner Family
DX: Z46.1 Encounter for fitting and adjustment of hearing aid (principal)
CPT/HCPCS: V5266

== ENCOUNTER 2025-09-06 09:17 | Outpatient (REF) | payer MEDICARE, SELFPAY ==
[2025-09-06 10:22] LABS: Alanine Aminotransferase 18 U/L (0-31); Albumin Level 4.5 g/dL (3.5-5.0); Alkaline Phosphatase 63 U/L (39-117); Anion Gap 11 (12-20); Aspartate Amino Transferase 35 U/L (5-31); Blood Urea Nitrogen 17 mg/dL (9-16); Calcium 9.6 mg/dL (8.4-10.2); Carbon Dioxide 27 mmol/L (22-29); Chloride 107 mmol/L (96-108); Cholesterol 195 mg/dL (<200); Estimated Glomerular Filt Rate > 60; HDL Cholesterol 65 mg/dL (>40); Potassium 4.2 mmol/L (3.3-5.1); Sodium 141 mmol/L (135-145); Total Protein 7.1 g/dL (6.5-8.0); Triglycerides 80 mg/dL (<150)
[2025-09-06 11:55] LABS: Folate 9.0 ng/mL (> or = 4.0); Vitamin B12 198 pg/mL (200-900)
== END 2025-09-06 09:18 | disposition home or self-care (01) ==
LOC: HO.10HDL 09:17
PROVIDERS: Visit Provider Nurse Practitioner Family
DX: E78.5 Hyperlipidemia, unspecified (principal); I10 Essential (primary) hypertension
CPT/HCPCS: 36415; 80053; 80061; 82043; 82306; 82570; 82607; 82746; 84443

== ENCOUNTER 2025-09-13 10:01 | Outpatient (REF) | payer MEDICARE, SELFPAY | END 2025-09-13 10:02 | disposition home or self-care (01) | LOC: HO.LAB 10:01 | PROVIDERS: PCP Nurse Practitioner Family; Visit Provider Nurse Practitioner Family | DX: Z00.00 Encounter for general adult medical examination without abnormal findings (principal); I10 Essential (primary) hypertension; H81.13 Benign paroxysmal vertigo, bilateral; H90.3 Sensorineural hearing loss, bilateral; E78.5 Hyperlipidemia, unspecified; E55.9 Vitamin D deficiency, unspecified; E53.8 Deficiency of other specified B group vitamins; F41.1 Generalized anxiety disorder; F51.05 Insomnia due to other mental disorder; B35.1 Tinea unguium; R15.1 Fecal smearing; Z23 Encounter for immunization; Z53.20 Procedure and treatment not carried out because of patient's decision for unspecified reasons; Z13.89 Encounter for screening for other disorder; Z71.89 Other specified counseling; Z79.899 Other long term (current) drug therapy | CPT/HCPCS: 87086; 90471; 90656; 96127; 99212; 99497 ==

== ENCOUNTER 2025-09-13 10:01 | Outpatient (AMB) | payer MEDICARE, SELFPAY ==
--- NOTE | 2025-09-13 10:04 | AM.OFFVISMDC ---
Intake Vital Signs 09/13/25 10:08 09/13/25 10:56 Height 5 ft 6 in Weight 98 lb 8 oz BMI 15.9 BP 138/78 108/64 Blood Pressure Location Lt brachial Lt brachial Position Sitting Sitting Pulse 70 Pulse Source Auscultation Pulse Oximetry (%) 98 Oxygen Delivery Method Room Air Intake Visit Reasons: Aug sAWV 30 min labs 1 week before Allergies No Known Allergies (No Known Allergies*) Allergy (Verified 09/13/25 10:11) Medication List - Last Reconciled 09/13/25 by Irene Lunsford, FREELANCE RECRUITER- amlodipine (Norvasc) 5 mg PO .DAILY AT BEDTIME buspirone 15 mg PO BID 90 days clonidine HCl 0.1 mg PO BEDTIME 3 months lisinopril 20 mg PO DAILY metoprolol succinate ER 75 mg (3 x 25 mg) PO ONCE mirtazapine 15 mg PO BEDTIME HPI HPI Comments History of Present Illness Details Here today for AWV. The Medicare Annual Wellness Visit (AWV) is a yearly appointment with a health professional to identify health risks and help reduce them and to create or update a personalized prevention plan. During a Medicare AWV, health professionals should also review any current opioid prescriptions, detect any cognitive impairment, and establish or update medical and family history. 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 Mammogram declined Colonoscopy declined DEXA mutually agreed not needed Immunizations: Reports UTD flu and COVID vaccines; Flu today PAP - screened out AAA screen: NA EKG: offered and declined Visual Acuity: Eye exam UTD declined Snellen Hearing Screening: [facility] wears hearing aides ACP: does not have hcp/molst or ACP Dietary/Nutrition/Exercise Edu provided: Y During the course of the visit the patient was educated and counseled about appropriate screening and preventative services. Patient instructions were provided to the patient in written or electronic format. I have reviewed and verified the above information. History of Present Illness The patient is a 75-year-old female presenting for AWV Vertigo: - Dizziness with head movement or lying down. - Associated with blocked ear sensation on the L - Blocked sensation in left ear. - Ear to be evaluated and potentially cleaned. Essential Hypertension: - History of hypertension, well-controlled. - Initial BP 138/78 lowered to 108/64 after relaxing. Elimination: - Regular bowel movements, no pain. Denies UTI sx. Sleep Disturbance: - Poor sleep patterns, did not take mirtazapine over concerns over medication side effects. - would like to try tea to help sleep Vitamin D Deficiency: - Noted in labs, requires supplementation. Vitamin B12 Deficiency: - Noted in labs, requires supplementation. Hyperlipidemia: - Controlled with garlique, slight level increase but within goals. NAFISA: Stable on current meds; has episodes of anxiety which causes pressure in her abd. Self limiting. Taking meds as directed; in counseling; has someone from [employer] that visits her; she enjoys this. No more hallucinations, Social History - Volunteers at [employer] home three afternoons a week. - Experienced computer issues impacting personal writing activities. - Participating in informal supportive sessions with a leather goods sales representative from an elderly branch. Health Maintenance - Recent eye exam conducted in July 27 with no changes detected. - Declined breast and colorectal cancer screenings. - Recent COVID-19 vaccination received in late July. - Flu vaccination administered during the visit. - Vitamin D and B deficiencies identified in labs requiring supplementation. Review of Systems - ENT: Reports dizziness, inner ear discomfort, sensation of ear blockage. - Cardiovascular: Reports good previous BP control; denies recent falls. - Gastrointestinal: Denies pain, reports constipation and increased bowel movement frequency. - Neurological: Reports poor sleep with no hallucinations currently. - Behavioral: Reports stress affecting gastrointestinal symptoms. - General: Reports weight stability and adequate nutritional status. Physical Exam General: Well developed, well nourished, in no acute distress. Appears stated age. Head: Normocephalic, atraumatic. Eyes: Pupils are equal, round and reactive to light and accommodation. Conjunctivae are clear. Scleras nonicteric bilat. Vision grossly normal. R Ears: TMs clear AU, significant wax in the right ear. Nose: Patent, without discharge. Neck: No carotid bruit bilat. Supple, no adenopathy or thyromegaly. Breast: Edu on SBE. Patient declined mammogram or breast cancer screening. Lungs: Clear to auscultation bilaterally. No rales, rhonchi or wheeze noted. Good air flow in all lainez. Heart: Regular rate and rhythm. No murmurs, click, rubs or gallops are noted. Abdomen: Bowel sounds present in all quadrants. The abdomen is soft, observed in seated position Pulses: Peripheral pulses are equal and palpable bilaterally. Extremities: No clubbing, cyanosis nor edema is noted. Thickened toe nails, long. Neurologic: Gait and station normal. Cranial Nerves 2-12 intact. Motor strength grossly symmetrical and intact. No sensory loss. Balance normal. Skin: No rashes, ulcers, or lesions noted. Turgor is good. Skin color is good. Hair and nails are without abnormalities. Psych: Normal eye contact, affect and mood appropriate, and normal interactions. Patient is alert and appropriate to context. Results 09/06/25 Vit D 18.5, B12 198, LDL 114 , AST 25, Bili 1.2 otherwise wnl UA done today, shows blood and leuks Discussion Notes After discussing the patient's symptoms, I believe that the dizziness and sensation of ear blockage are likely related to inner ear issues. I recommended flushing the R ear to potentially relieve symptoms and discussed the option of vestibular therapy, which the patient will consider. The patient?s hypertension is well-managed with current medications, and stress-related gastrointestinal pressure does not indicate Crohn's disease. Sleep disturbance was addressed, recommending dietary modifications, such as chamomile tea. The patient's vitamin deficiencies require supplementation, and the recent COVID vaccination was verified. The flu vaccine was given today. I advised the patient on the implications of declining cancer screenings in the discussion, honoring her current choice. Patient was given time to ask questions. All questions were answered to their satisfaction. Assessment and Plan 1. Vertigo - Ear flushing R to be done at [facility] Speech and hearing; consider vestibular therapy. Fall prevention edu 2. Essential Hypertension - Continue current medications. 3. Sleep Disturbance - Chamomile tea suggested. 4. Vitamin D Deficiency - Start Viactiv chews. 5. Vitamin B Deficiency - Prescribe B12 2000 IU QD 6. Hyperlipidemia - Continue garlique 7. Microscopic heme. Check urine culture, tx if + Patient Instructions - Schedule follow-up with hearing center to clean right ear. - Continue taking prescribed hypertension medications. - Try chamomile tea for sleep. - Begin taking Viactiv chews for Vitamin D. - Fill B12 prescription if covered. - Inform about any sudden changes in symptom patterns. - Discuss any new health concerns at your next visit. - Seek medical attention if experiencing severe symptoms. - RTO 3 mo w/repeat labs, sooner PRN Consent Patient was informed and verbally consented to the use of an ambient scribe for clinic note documentation during this visit. An additional 20 was spent addressing the problem(s) noted at todays visit. This includes time spent before the visit reviewing the chart, time spent during the visit, and time spent after the visit on documentation [facility] Medical History (Updated 09/13/25 @ 16:08 by DINESH Hernandez) Decreased hearing Hyponatremia Scalp cyst Surgical History No pertinent past surgical history Family History Father No problems noted. Mother No problems noted. Brother No problems noted. Social History (Updated 01/11/24 @ 10:40 by Claudia Mosley [facility]) Household Members: Other Household Members Other:: Cat Both parents involved: No Caregiver staying overnight: No Housing: House Are you a primary childcare provider to a significant other at home: No Do you presently have visiting nurse or other home services: No 75 years or older and lives alone: Yes Alcohol intake: current Alcohol intake frequency: holidays/special occasions only Patient Tobacco Use Status: Never used Tobacco e-Cigarette/Vaping Use: Never Used service: No Current occupational status: retired Current occupational exposures/hazards: No Cognitive needs: No Hearing needs: No Vision needs: No Questionnaire Medicare Wellness Checkup What [age] What gender do you identify with?: female During the past 4 weeks, how much have you been bothered by emotional problems such as feeling anxious, depressed, irritable, sad or downhearted, and blue?: not at all During the past 4 weeks, has your physical & emotional health limited your social activities with family, friends, neighbors, or groups?: not at all During the past 4 weeks, how much bodily pain have you generally had?: no pain During the past 4 weeks, was someone available to help you if you needed & wanted help?: yes, as much as I wanted During the past 4 weeks, what was the hardest physical activity you could do for at least 2 minutes?: moderate Can you get to places out of walking distance without help? (For eg., can you travel alone on buses, taxis or drive your car?): Yes Can you go shopping for groceries or clothes without someone's help?: Yes Can you prepare your own meals?: Yes Can you do your housework without help?: Yes Because of any health problems, do you need the help of another person with your personal care needs such as eating, bathing, dressing or getting around the house?: No Can you handle your own money without help?: Yes During the past 4 weeks, how would you rate your health in general?: very good During the past 4 weeks how have things been going for you?: pretty well Are you having difficulties driving your car?: no Do you always fasten your seat belt when you are in a car?: yes, usually During past 4 weeks, have you been bothered by the following: never: Falling or dizzy when standing up, Sexual problems?, Trouble eating well?, Teeth or denture problems?, Problems using the telephone? and Tiredness or fatigue? Have you fallen 2 or more times in the past year?: No Are you afraid of falling?: No Are you a smoker?: no During the past 4 weeks, how many drinks of wine, beer, or other alcoholic beverages did you have?: no alcohol at all Do you exercise for about 20 minutes 3 or more times a week?: yes, some of the time Have you been given information to help with the following?: no: Hazards in your house that might hurt you? and no: Keeping track of your medications? How often do you have trouble taking medicines the way you have been told to take them?: I always take medicine as prescribed How confident are you that you can control & manage most of your health problems?: very confident What is your race?: White Activity of Daily Living Bathing - sponge bath, tub bath or shower: receives no assistance (gets in/out by self, if usual bathing means Dressing - getting clothes from closets & drawers, including inner/outer garments & fasteners.: gets clothes & gets completely dressed without help Toileting - going to the 'toilet room' for urine/bowel elimination & cleaning self/arranging clothes: goes to toilet room, cleans self, arranges clothes without help Transfer: moves in & out of bed and chair without help (may use support object) Continence: controls urination/bowel movements completely by self Feeding: feeds self without help Total Score: 0 Information obtained from: patient Using telephone: independent Traveling: independent Shopping: independent Preparing meals: independent Housework: independent Taking medicine: independent Managing money: independent PHQ-9 Over the last 2 weeks, how often have you been bothered by any of the following problems? 3. Trouble falling or staying asleep, or sleeping too much: not at all 4. Feeling tired or having little energy: not at all 5. Poor appetite or overeating: not at all 6. Feeling bad about yourself - or that you are a failure or have let yourself or your family down: not at all 7. Trouble concentrating on things, such as reading the newspaper or watching television: not at all 8. Moving or speaking so slowly that other people could have noticed. Or the opposite - being so fidgety or restless that you have been moving around a lot more than usual: not at all 9. Thoughts that you would be better off or of hurting yourself in some way: not at all Depression Screening Interpretation: Negative Depression Screening Done: Yes 81220 - PHQ-9 Billing: Yes Source: Developed by Drs. Abe Navarrete, Shonda Dillon, Aftab Stanford and colleagues, with an educational michael from [employer]. Physical Exam Vital Signs: Last Vital Signs Pulse 70 09/13/25 10:08 BP 108/64 09/13/25 10:56 Pulse Ox 98 09/13/25 10:08 Oxygen Delivery Method Room Air 09/13/25 10:08 BMI result Body Mass Index 15.9 Office Procedures Flu Questionnaire Does the patient have a severe egg allergy?: No Does the patient have severe life threatening allergies?: No Does the patient have a fever or illness today?: No Has the patient ever had Guillain-Lewis Syndrome?: No Has the patient ever had any past reaction to a flu shot?: No Results AMB Urinalysis, Automated UA Leukoctes 125 Elliot/uL Last Edit by DINESH Hernandez on 09/13/25 10:37 UA Nitrite Last Edit by DINESH Hernandez on 09/13/25 10:37 UA Urobilinogen 3.5 mg/dL Last Edit by DINESH Hernandez on 09/13/25 10:37 UA Protein 0 mg/dL Last Edit by DINESH Hernandez on 09/13/25 10:37 UA pH 5.5 Last Edit by DINESH Hernandez on 09/13/25 10:37 UA Blood 10 Anthony/uL Last Edit by DINESH Hernandez on 09/13/25 10:37 UA Specific [place] 1.015 Last Edit by DINESH Hernandez on 09/13/25 10:37 UA Ketone Negative Last Edit by DINESH Hernandez on 09/13/25 10:37 UA Bilirubin 0 mg/dL Last Edit by DINESH Hernandez on 09/13/25 10:37 UA Glucose 0 mg/dL Last Edit by DINESH Hernandez on 09/13/25 10:37 Immunizations Fluarix 4933-0014 (PF) 45 mcg (15 mcg x 3)/0.5 mL IM syringe Performing Provider: DINESH Hernandez Performing Location: [facility] Administered by: Bethany Claudio CMA on 09/13/25 11:52 Dose Route Admin Location Dispensed Lot Number Expiration Date [facility] Small Machine Bindery Operator 0.5 mL IM Left Deltoid 0.5 mL [id number] 05/22/26 [id number] [employer] VIS Given Date VIS Provided VIS Publication Date 09/13/25 Single Vaccine 24 Eligibility Eligibility Date Funding Source Not [facility] Eligible 09/13/25 Private Results Reviewed Results Reviewed: Laboratory Last Values Urine pH (Auto) 5.5 09/13/25 10:21 Specific [place] (Auto) 1.015 09/13/25 10:21 Urine Protein (Auto) 0 mg/dL 09/13/25 10:21 Glucose (UA)(Auto) 0 mg/dL 09/13/25 10:21 Urine Ketones (Auto) Negative 09/13/25 10:21 Urine Blood (Auto) 10 Anthony/uL 09/13/25 10:21 Urine Bilirubin (Auto) 0 mg/dL 09/13/25 10:21 Urine Urobilinogen (Auto) 3.5 mg/dL 09/13/25 10:21 Leukocyte Esterase (Auto) 125 Elliot/uL 09/13/25 10:21 Assessment & Plan Assessment & Plan (1) Encounter for subsequent annual wellness visit (AWV) in Medicare patient: Onset Date: ~09/13/25 Code(s): Z00.00 - Encounter for general adult medical examination without abnormal findings (2) ACP (advance care planning): Code(s): Z71.89 - Other specified counseling (3) NAFISA (generalized anxiety disorder): Comment: chronic, on BB and Clonidine for BP and Anxiety. Plan: counseling - Code(s): F41.1 - Generalized anxiety disorder (4) Insomnia secondary to anxiety: Code(s): F41.9 - Anxiety disorder, unspecified; F51.05 - Insomnia due to other mental disorder (5) Hypertension: Comment: At goal on Norvasc 5 mg, lisinopril 20 mg q.a.m., metoprolol 75 mg q.a.m., clonidine 0.1 mg q.pm. Plan: Continue this medication regimen. Code(s): I10 - Essential (primary) hypertension Qualifiers: Hypertension type: essential hypertension Qualified Code(s): I10 - Essential (primary) hypertension (6) Dyslipidemia, goal LDL below 100: Comment: on torsten, Code(s): E78.5 - Hyperlipidemia, unspecified (7) Hearing loss: Code(s): H91.90 - Unspecified hearing loss, unspecified ear Qualifiers: Hearing loss type: sensorineural Laterality: bilateral Qualified Code(s): H90.3 - Sensorineural hearing loss, bilateral (8) BPPV (benign paroxysmal positional vertigo): Code(s): H81.10 - Benign paroxysmal vertigo, unspecified ear Qualifiers: Laterality: bilateral Qualified Code(s): H81.13 - Benign paroxysmal vertigo, bilateral (9) Influenza vaccination administered at current visit: Onset Date: ~09/13/25 Code(s): Z23 - Encounter for immunization (10) Mammogram declined: Onset Date: ~09/13/25 Code(s): Z53.20 - Procedure and treatment not carried out because of patient's decision for unspecified reasons (11) Colon cancer screening declined: Onset Date: ~09/13/25 Code(s): Z53.20 - Procedure and treatment not carried out because of patient's decision for unspecified reasons (12) Vitamin D deficiency: Code(s): E55.9 - Vitamin D deficiency, unspecified (13) B12 deficiency: Code(s): E53.8 - Deficiency of other specified B group vitamins (14) Microscopic hematuria: Code(s): R31.29 - Other microscopic hematuria (15) Onychomycosis: Code(s): B35.1 - Tinea unguium Plan . Orders: Orders Urine Culture Today R15.1 - Fecal smearing AMB Urinalysis Automated Today Z13.9 - Encounter for screening, unspecified Vitamin B12 and Folate 3 Months E53.8 - Deficiency of other specified B group vitamins, E55.9 - Vitamin D deficiency, unspecified, E78.5 - Hyperlipidemia, unspecified Vitamin D 25-OH Total 3 Months E53.8 - Deficiency of other specified B group vitamins, E55.9 - Vitamin D deficiency, unspecified, E78.5 - Hyperlipidemia, unspecified Lipid Panel 3 Months E53.8 - Deficiency of other specified B group vitamins, E55.9 - Vitamin D deficiency, unspecified, E78.5 - Hyperlipidemia, unspecified Influenza [id number] Immunization Today Z23 - Encounter for immunization Medications: New mecobalamin (vitamin B12) allow to dissolve in mouth OR may chew lightly before swallowing 2,000 mcg PO DAILY 180 ea 2RF 90 days Discontinued mirtazapine Discontinued Reason: Patient Completed Course 15 mg PO BEDTIME 90 tabs 0RF Patient Instructions: Viactiv Chews, buy over the counter. Start b12, available over the counter or prescription. - Schedule follow-up with hearing center to clean right ear. - Continue taking prescribed hypertension medications. - Try chamomile tea for sleep. - Begin taking Viactiv chews for Vitamin D. - Fill B12 prescription if covered. - Inform about any sudden changes in symptom patterns. - Discuss any new health concerns at your next visit. - Seek medical attention if experiencing severe symptoms. - Return to office with repeat labs in 3 months. Health screenings for women You should visit your health care provider from time to time, even if you are healthy. The purpose of these visits is to: Screen for medical issues Assess your risk for future medical problems Encourage a healthy lifestyle Update vaccinations and other preventive care services Help you get to know your provider in case of an illness Information Even if you feel fine, you should still see your provider for regular checkups. These visits can help you avoid problems in the future. For example, the only way to find out if you have high blood pressure is to have it checked regularly. High blood sugar and high cholesterol levels also may not have any symptoms in the early stages. A simple blood test can check for these conditions. There are specific times when you should see your provider or receive specific health screenings. The [place] Preventive Services Task Force publishes a list of recommended screenings. Below are screening guidelines for women ages 18 to 39. BLOOD PRESSURE SCREENING Your blood pressure should be checked at least once every 3 to 5 years if: Your blood pressure is in the normal range (top number less than 120 mm Hg and bottom number less than 80 mm Hg) You don't have risk factors for high blood pressure Ask your provider if you need your blood pressure checked more often if: The top number is 120 to 129 mm Hg or the bottom number is 70 to 79 mm Hg You have diabetes, heart disease, kidney problems, are overweight, or have certain other health conditions You have a first-degree relative with high blood pressure You are Black You had high blood pressure during a If the top number is 130 mm Hg or greater or the bottom number is 80 mm Hg or greater, this is considered stage 1 hypertension. Schedule an appointment with your provider to learn how you can reduce your blood pressure. Watch for blood pressure screenings in your area. Ask your provider if you can stop in to have your blood pressure checked. BREAST CANCER SCREENING Experts do not agree about the benefits of breast self-exams in finding breast cancer or saving lives. Talk to your provider about what is best for you. A screening mammogram is not recommended for most women under age 40. Your provider may discuss and recommend mammograms, MRI scans, or ultrasounds if you have an increased risk for breast cancer, such as: A mother or sister who had breast cancer at a young age (most often starting screening earlier than the age the close relative was diagnosed) You carry a high-risk genetic marker CERVICAL CANCER SCREENING Cervical cancer screening should start at age 21 years unless your provider advises otherwise. After the first test: Women ages 21 through 29 should have a Pap test every 3 years. Exoprts do not agree on whether HPV testing is recommended for this age group. Women ages 30 through 65 should be screened with either a Pap test every 3 years or the HPV test every 5 years or both tests every 5 years (called cotesting ). Women who have been treated for precancer (cervical dysplasia) should continue to have Pap tests for 20 years after treatment or until age 65, whichever is longer. If you have had your uterus and cervix removed (total hysterectomy), and you have not been diagnosed with cervical cancer or precancer (high grade cervical neoplasia), you do not need cervical cancer screening. CHOLESTEROL SCREENING Cholesterol screening should begin at: Age 45 for women with no known risk factors for coronary heart disease Age 20 for women with known risk factors for coronary heart disease Repeat cholesterol screening should take place: Every 5 years for women with normal cholesterol levels More often if changes occur in lifestyle (including weight gain and diet) More often if you have diabetes, heart disease, kidney problems, or certain other conditions DIABETES SCREENING You should be screened for diabetes starting at age 35 and then repeated every 3 years if you have no risk factors for diabetes. Screening may need to start earlier and be repeated more often if you have other risk factors for diabetes, such as: You have a first degree relative with diabetes. You are overweight or have obesity. You have high blood pressure, prediabetes, or a history of heart disease. Screening for diabetes should be done if you are planning to become and you are overweight and have other risk factors such as high blood pressure. DENTAL EXAM Go to the dentist once or twice every year for an exam and cleaning. Your dentist will evaluate if you need more frequent visits. EYE EXAM Have an eye exam every 5 to 10 years before age 40. If you have vision problems, have an eye exam every 2 years or more often if recommended by your provider. You should have an eye exam that includes an examination of your retina (back of your eye) at least every year if you have diabetes. IMMUNIZATIONS Commonly needed vaccines include: Flu shot: get one every year. COVID-19 vaccine: ask your provider what is best for you. Tetanus-diphtheria and acellular pertussis (Tdap) vaccine: have one at or after age 19 as one of your tetanus-diphtheria vaccines if you did not receive it as an adolescent. Tetanus-diphtheria: have a booster (or Tdap) every 10 years. Varicella vaccine: receive 2 doses if you never had chickenpox or the varicella vaccine. Hepatitis B vaccine: receive 2, 3, or 4 doses, depending on your exact circumstances. Measles, mumps, and rubella (MMR) vaccine: receive 1 to 2 doses if you are not already immune to MMR. Your provider can tell you if you are immune. Ask your provider about the human papillomavirus (HPV) vaccine if: You have not received the HPV vaccine in the past You have not completed the full vaccine series (you should catch up on this shot) Ask your provider if you should receive other immunizations if you have certain health problems that increase your risk for some diseases such as pneumonia. INFECTIOUS DISEASE SCREENING Women who are sexually active should be screened for chlamydia and gonorrhea up until age 25. Women 25 years and older should be screened for chlamydia and gonorrhea if at high risk. Screening for hepatitis C: All adults ages 18 to 79 should get a one-time test for hepatitis C. people should be screened at every . Screening for human immunodeficiency virus (HIV): All people ages 15 to 65 should get a one-time test for HIV. Depending on your lifestyle and medical history, you may also need to be screened for infections such as syphilis and HIV, as well as other infections. PHYSICAL EXAM All adults should visit their provider from time to time, even if they are healthy. The purpose of these visits is to: Screen for disease Assess your risk of future medical problems Encourage a healthy lifestyle Update your vaccinations and other preventive care services Maintain a relationship with a provider in case of an illness Your height, weight, and BMI should be checked at every exam. During your exam, your provider may ask you about: Depression and anxiety Diet and exercise Alcohol and tobacco use Safety issues, such as using seat belts, smoke detectors, and intimate partner violence Your medicines and risk for interactions SKIN SELF-EXAM Your provider may check your skin for signs of skin cancer, especially if you're at high risk, such as if you: Have had skin cancer before Have close relatives with skin cancer Have a weakened immune system OTHER SCREENING Talk with your provider about colon cancer screening if you have a strong family history of colon cancer or polyps, or if you have had inflammatory bowel disease or polyps yourself. Routine bone density screening of women under 40 is not recommended. Quality Reporting (2019) Adult ([facility] 138/01/14/69) Smoking risk assessment performed?: Yes Patient Tobacco Use Status: Never used Tobacco Depression screening performed: Yes Screen Results: Yes Negative screen Recommended changes not done: EKG Patient refused: Yes Systolic BP not done?: No Diastolic BP not done?: No BMI screening not done: No Sexual Activity Screening ([facility] 153) Sexually active?: No Immunizations ([facility] 147, 117) Annual Influenza Vaccine: Yes Measles Antibody Test: No Mumps Antibody Test: No Rubella Antibody Test: No Varicella Antibody Test: No Anti Hepatitis A IgG Antigen test: No Anti Hepatitis B Virus Surface Ab test: No Fall Risk Screening ([facility] 139) Last assessed Fall Risk: 09/13/25 Fall risk assessment: No Falls in past year Dementia Assessment (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; F51.05 Essential hypertension I10 Hypertension type: essential hypertension Dyslipidemia, goal LDL below 100 E78.5 Sensorineural hearing loss (SNHL) of both ears H90.3 Hearing loss type: sensorineural Laterality: bilateral 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 Laterality: bilateral Influenza vaccination administered at current visit Z23 Mammogram declined Z53.20 Colon cancer screening declined Z53.20 Vitamin D deficiency E55.9 B12 deficiency E53.8 Microscopic hematuria R31.29 Onychomycosis B35.1 CPT Codes Advance Care Planning - Time spent: 16-45 minutes ([id number]) Additional Codes PHQ-9 - 93052 - PHQ-9 Billing: Yes ([id number]) Advance Care Planning Advance Care Planning discussion: Exists, not on file Date of discussion: 09/13/25 Who was present: self given blank copies if hcp molst and 5 wishes today has a living will at home Forms completed: Health Care Proxy, MOLST and Living will Time spent: 16-45 minutes Actual minutes spent: 16
[2025-09-13 10:08] VITALS: BP 138/78; PULSE 70; O2SAT 98; BMI 15.9
[2025-09-13 10:56] VITALS: BP 108/64
--- OUTSIDE RECORDS SUMMARY | 2025-09-13 12:12 | XMS_ITS | Clinical Summary ---
Author Organization [facility] Address [address] [place] [address] Phone Care Team Providers Care Commercial Real Estate Associate Name Role Phone Sienna Melara STACEY Primary [...] 2023 INFLUENZA VACCINE (#1) 2025 COVID-19 VACCINE ( - 2024-2 6 season) 2025 SMOKING STATUS SCREENING (On ce [...] topic Medical Devices Not on file Insurance [employer] MEDEX SUPPLEMENT MEDICARE PART A & B Member Subscriber Plan / Payer (Ef fective 2020-Present) Name:Sharla Ceja Member ID:[id number] Relation to Subscriber:Self Name:Sharla Ceja Subscriber ID:[id number] Payer ID:[id number] Group ID:Not on file Type:Medicare Address: [facility] [address] [place] [address] [employer] MEDEX SUPPLEMENT MEDICARE PART A & B Member Subscriber Plan / Payer (Ef fective 2020-Present) Name:Sharla Ceja Member ID:[id number] Relation to Subscriber:Self Name:Sharla Ceja Subscriber ID:[id number] Payer ID:[id number] Group ID:Not on file Type:Medicare Address: [facility] [address] [place] [address] [email or web address] CROSS MEDEX SUPPLEMENT MEDICARE PART A & B Member Subscriber Plan / Payer (Ef fective 2020-Present) Name:Sharla Ceja Member ID:[id number] Relation to Subscriber:Self Name:Sharla Ceja Subscriber ID:[id number] Payer ID:[id number] Group ID:Not on file Type:Medicare Address: [facility] [employer] [address] [place] [address] BLUE CROSS MEDEX SUPPLEMENT MEDICARE PART A & B Member Subscriber Plan / Payer (Ef fective 2020-Present) Name:Sharla Ceja Member ID:[id number] Relation to Subscriber:Self Name:Sharla Ceja Subscriber ID:[id number] Payer ID:[id number] Group ID:Not on file Type:Medicare Address: [facility] [address] [place] [address] [email or web address] CROSS MEDEX SUPPLEMENT MEDICARE PART A & B BLUE CROSS MEDEX SUPPLEMENT MEDICARE PART A & B Care Teams Commercial Real Estate Associate Relationship Specialty Start Date End Date Sienna Melara NP [address] [place] [address] PCP - General Nurse Practitioner 04/30/23 Additional Source Comments The information contained in this document represents components of the legal health record. It is not the complete legal health record.[facility]
== END 2025-09-13 11:25 | disposition home or self-care (01) ==
LOC: HO.HMCFM 10:02
PROVIDERS: PCP Nurse Practitioner Family; Visit Provider Nurse Practitioner Family
DX: Z00.00 Encounter for general adult medical examination without abnormal findings (principal); R31.29 Other microscopic hematuria; F51.05 Insomnia due to other mental disorder; F41.1 Generalized anxiety disorder; F41.9 Anxiety disorder, unspecified; I10 Essential (primary) hypertension; E78.5 Hyperlipidemia, unspecified; E53.8 Deficiency of other specified B group vitamins; H81.13 Benign paroxysmal vertigo, bilateral; B35.1 Tinea unguium; Z23 Encounter for immunization; E55.9 Vitamin D deficiency, unspecified

== ENCOUNTER 2025-10-18 11:09 | Outpatient (REF) | payer SELFPAY ==
--- OUTSIDE RECORDS SUMMARY | 2025-10-18 13:56 | XMS_ITS | Clinical Summary ---
Author Organization [facility] Address [address] [place] [address] Phone Care Team Providers Care Revit Drafter Name Role Phone Sienna Melara STACEY Primary [...] topic Medical Devices Not on file Insurance [address] MEDEX SUPPLEMENT MEDICARE PART A & B [address] MEDEX SUPPLEMENT MEDICARE PART A & B [employer] MEDEX SUPPLEMENT MEDICARE PART A & B [employer] MEDEX SUPPLEMENT MEDICARE PART A & B [employer] MEDEX SUPPLEMENT MEDICARE PART A & B [employer] MEDEX SUPPLEMENT MEDICARE PART A & B Care Teams Revit Drafter Relationship Specialty Start Date End Date Sienna Melara NP [address] [place] [address] PCP - General Nurse Practitioner 04/30/23 Additional Source Comments The information contained in this document represents components of the legal health record. It is not the complete legal health record.[facility]
== END 2025-10-18 11:10 | disposition home or self-care (01) ==
LOC: HO.HAP 11:09
PROVIDERS: Visit Provider Nurse Practitioner Family
DX: H61.22 Impacted cerumen, left ear (principal)
CPT/HCPCS: V5266

== ENCOUNTER 2025-11-20 11:10 | Outpatient (REF) | payer SELFPAY ==
--- OUTSIDE RECORDS SUMMARY | 2025-11-20 13:09 | XMS_ITS | Clinical Summary ---
Author Organization [facility] Address [address] [place] [address] Phone Care Team Providers Care Simplex Operator Name Role Phone Sienna Melara STACEY Primary [...] topic Medical Devices Not on file Insurance [employer] MEDEX SUPPLEMENT MEDICARE PART A & B [employer] MEDEX SUPPLEMENT MEDICARE PART A & B [employer] MEDEX SUPPLEMENT MEDICARE PART A & B [employer] MEDEX SUPPLEMENT MEDICARE PART A & B [employer] MEDEX SUPPLEMENT MEDICARE PART A & B [employer] MEDEX SUPPLEMENT MEDICARE PART A & B Care Teams Simplex Operator Relationship Specialty Start Date End Date Sienna Melara NP [address] [place] [address] PCP - General Nurse Practitioner 04/30/23 Additional Source Comments The information contained in this document represents components of the legal health record. It is not the complete legal health record.[facility]
== END 2025-11-20 11:11 | disposition home or self-care (01) ==
LOC: HO.HAP 11:10
PROVIDERS: Visit Provider Nurse Practitioner Family
DX: Z46.1 Encounter for fitting and adjustment of hearing aid (principal); H61.22 Impacted cerumen, left ear
CPT/HCPCS: V5266